=== PATIENT | male | born 1960 | race American Indian/Alaskan Native ===

== ENCOUNTER 2017-08-12 08:11 | Outpatient (CLI) | payer MEDICARE ==
--- NOTE | 2017-08-13 00:55 | Cat Scan Report ---
FINAL REPORT EXAM: CT ABDOMEN PELVIS WO CON HISTORY: MASS RT LOWER QUADRANT TECHNIQUE: Routine axial imaging was obtained of the abdomen and pelvis without IV contrast. Oral contrast was administered. Sagittal and coronal reconstructions were reviewed. Comparison is made to the study of 12/28/2009. FINDINGS: Images through lung bases reveal diffuse interstitial prominence which is nonspecific. Pleural fluid is not seen. The liver, gallbladder, pancreas, and spleen all appear normal. The adrenal glands reveal a stable 19 millimeter low-attenuation nodule in the right adrenal gland most likely representing a benign adenoma. The left adrenal gland appears normal. The kidneys show no evidence of stones or hydronephrosis. The bowel loops are normal in caliber and course. There calcification of the abdominal aorta. There is no evidence of free fluid or adenopathy. The appendix appears normal. In the pelvis the prostate gland is diffusely enlarged indenting the floor of the bladder. It measures 6.7 cm x 5.8 cm. Free fluid is not seen. There are phleboliths along the floor of the pelvis. The skeletal structures reveal facet arthropathy changes of the lower lumbar spine. IMPRESSION: No acute process in the abdomen and pelvis. No evidence of any inflammatory or neoplastic process in the right lower quadrant. Normal appendix. Enlarged prostate gland. Nonspecific diffuse interstitial prominence in both lung bases.
== END 2017-08-12 08:12 | disposition home or self-care (01) ==
LOC: CT 08:11
PROVIDERS: ATTEND General Practice
DX: N40.0 Benign prostatic hyperplasia without lower urinary tract symptoms (principal); I70.0 Atherosclerosis of aorta; I87.8 Other specified disorders of veins; M12.88 Other specific arthropathies, not elsewhere classified, other specified site
CPT/HCPCS: 74176

== ENCOUNTER 2018-05-03 11:15 | Emergency (ER) | payer MEDICARE ==
[2018-05-03 11:45] LABS: Bacteria,Urine 4+ /HPF (Negative); Bilirubin,Urine NEG (Negative); Blood,Urine SM (Negative); Color,Urine Yellow (Yellow); Mucus,Urine FEW /HPF; Protein,Urine <15 mg/dL mg/dL (Negative)
[2018-05-03 13:29] LABS: Basophils # (Auto) 0.1 K/mm3 (0.0-0.1); Basophils % (Auto) 1.1 % (0.0-1.8); Eosinophils # (Auto) 0.2 K/mm3 (0.0-0.4); Eosinophils % (Auto) 2.6 % (0.0-4.3); Hematocrit 40.6 % (35.5-45.6); Hemoglobin 14.2 gm/dl (11.8-15.2); Lymphocytes # (Auto) 2.6 K/mm3 (1.2-5.4); Lymphocytes % (Auto) 32.7 % (13.4-35.0); Mean Corpuscular HGB Conc 35 % (32-34); Mean Corpuscular Hemoglobin 30 pg (28-32); Mean Corpuscular Volume 87 fl (84-94); Monocytes # (Auto) 0.6 K/mm3 (0.0-0.8); Monocytes % (Auto) 7.4 % (0.0-7.3); Platelet Count 190 K/mm3 (140-440); Red Blood Count 4.67 M/mm3 (3.65-5.03); Red Cell Distribution Width 13.8 % (13.2-15.2)
[2018-05-03 13:51] LABS: BUN/Creatinine Ratio 14; Blood Urea Nitrogen 10 mg/dL (9-20); Hemolysis Index 13
--- NOTE | 2018-05-03 14:34 | Cat Scan Report ---
FINAL REPORT EXAM: CT ABDOMEN PELVIS WO CON HISTORY: abd pain r groin TECHNIQUE: CT of the abdomen and pelvis without IV contrast. Coronal and sagittal reconstructed imaging provided. PRIORS: CT abdomen pelvis August 12, 2017. FINDINGS: ABDOMEN: Bilateral adrenal adenomas are unchanged in size and attenuation. Liver, gallbladder, stomach, spleen, and pancreas are unremarkable. Kidneys: Punctate ill-defined densities in both medullary pyramids may represent dense pyramids, tiny stones, or medullary calcinosis. No hydronephrosis. No distinct nephroureteral stone. IVC is unremarkable. Auyp-gj-tzhwbhlu aortic atherosclerotic disease. No aneurysm. No periaortic or retroperitoneal mass or adenopathy. No hematoma. Bilateral psoas muscles appear symmetrical. Mhde-de-dilooadk stool is present throughout the colon. No wall thickening or inflammatory changes. Terminal ileum is unremarkable. Appendix is normal. Small bowel loops are unremarkable. No obstructive pattern. No free air. No free fluid. PELVIS: Large prostate is unchanged compared to the prior. Bladder is unremarkable. No pelvic mass or adenopathy. Inguinal regions are unremarkable. No adenopathy. No mass. No significant hernia. Bones: No suspicious osseous lesions on this limited examination of the skeleton. Metastatic disease better evaluated with bone scan. L3 vertebral hemangioma is unchanged. IMPRESSION: Punctate ill-defined densities in both medullary pyramids may represent dense pyramids, tiny stones, or medullary calcinosis. Right inguinal regions unremarkable. Stable bilateral adrenal adenomas. Stable enlarged prostate.
--- NOTE | 2018-05-03 14:59 | Emergency Department Report ---
ED General Adult HPI - General Chief complaint: Urogenital-Male Stated complaint: UTI PAIN Time Seen by Provider: 05/03/18 13:02 Source: patient Mode of arrival: Ambulatory Limitations: No Limitations - History of Present Illness Initial comments: Patient complains of pain and difficulty in urinating. He says suprapubic pain. He went to his family physician and was referred to [place] [facility] for a possible hernia. He states he was to have a CT scan. Actually he had at least [address] scan in 2017 here before which she neglected to mention. Doesn't really report any acute pain in the normal area. He does complain of discomfort in the right side of his suprapubic region and suprapubic region itself. He has a history of an enlarged prostate. He denies fever or chills. He's had no nausea or vomiting. -: Gradual, week(s) Location: abdomen (suprapubic) Radiation: non-radiation Quality: aching Consistency: intermittent Improves with: none Worsens with: none Associated Symptoms: denies other symptoms Treatments Prior to Arrival: none - Related Data Previous Rx's Medication Instructions Recorded Last Taken Type Aspirin [Aspirin TAB] 325 mg PO QDAY #30 tablet 12/27/13 Unknown Rx Famotidine [Pepcid] 40 mg PO QHS #30 tablet 12/27/13 Unknown Rx Losartan [Cozaar] 50 mg PO QDAY #30 tablet 12/27/13 Unknown Rx Rosuvastatin (Nf) [Crestor] 10 mg PO QHS #30 tablet 12/27/13 Unknown Rx Ciprofloxacin HCl [Cipro] 500 mg PO BID #20 tablet 05/03/18 Unknown Rx Allergies Allergy/AdvReac Type Severity Reaction Status Date / Time No Known Allergies Allergy Unverified 12/26/13 10:47 ED Review of Systems ROS: Stated complaint: UTI PAIN Other details as noted in HPI Constitutional: denies: chills, fever Eyes: denies: eye pain, eye discharge, vision change ENT: denies: ear pain, throat pain Respiratory: denies: cough, shortness of breath, wheezing Cardiovascular: denies: chest pain, palpitations Endocrine: no symptoms reported Gastrointestinal: abdominal pain. denies: nausea, diarrhea Genitourinary: denies: urgency, dysuria Musculoskeletal: denies: back pain, joint swelling, arthralgia Skin: denies: rash, lesions Neurological: denies: headache, weakness, paresthesias Psychiatric: denies: anxiety, depression Hematological/Lymphatic: denies: easy bleeding, easy bruising ED Past Medical Hx - Past Medical History Hx Hypertension: Yes Hx Congestive Heart Failure: No Hx Diabetes: Yes Hx Arthritis: Yes Hx Asthma: No Hx COPD: No Hx HIV: No - Surgical History Additional Surgical History: Right shoulder - Social History Smoking Status: Current Every Day Smoker Substance Use Type: None - Medications Home Medications: Home Medications Medication Instructions Recorded Confirmed Last Taken Type Aspirin [Aspirin TAB] 325 mg PO QDAY #30 tablet 12/27/13 Unknown Rx Famotidine [Pepcid] 40 mg PO QHS #30 tablet 12/27/13 Unknown Rx Losartan [Cozaar] 50 mg PO QDAY #30 tablet 12/27/13 Unknown Rx Rosuvastatin (Nf) [Crestor] 10 mg PO QHS #30 tablet 12/27/13 Unknown Rx Ciprofloxacin HCl [Cipro] 500 mg PO BID #20 tablet 05/03/18 Unknown Rx ED Physical Exam - General Limitations: No Limitations General appearance: alert, in no apparent distress - Head Head exam: Present: atraumatic, normocephalic - Eye Eye exam: Present: normal appearance - ENT ENT exam: Present: mucous membranes moist - Neck Neck exam: Present: normal inspection - Respiratory Respiratory exam: Present: normal lung sounds bilaterally. Absent: respiratory distress - Cardiovascular Cardiovascular Exam: Present: regular rate, normal rhythm. Absent: systolic murmur, diastolic murmur, rubs, gallop - GI/Abdominal GI/Abdominal exam: Present: soft, tenderness (some mild suprapubic discomfort perhaps some fullness but I don't appreciate any mass or hernia.), normal bowel sounds. Absent: distended, guarding, rebound, rigid, organomegaly, mass, bruit , pulsatile mass, hernia - Rectal Rectal exam: Present: deferred - Extremities Exam Extremities exam: Present: normal inspection - Back Exam Back exam: Present: normal inspection - Neurological Exam Neurological exam: Present: alert, oriented X3, CN II-XII intact. Absent: motor sensory deficit - Psychiatric Psychiatric exam: Present: normal affect, normal mood - Skin Skin exam: Present: warm, dry, intact, normal color. Absent: rash ED Course Vital Signs 05/03/18 05/03/18 05/03/18 11:19 12:30 13:00 Temperature 98.1 F Pulse Rate 75 78 71 Respiratory 16 21 18 Rate Blood Pressure 209/97 185/87 184/88 O2 Sat by Pulse 97 96 96 Oximetry - Reevaluation(s) Reevaluation #1: IM ceftriaxone. Patient discharged in good and stable condition. 05/03/18 14:53 05/03/18 15:01 ED Medical Decision Making - Lab Data Result diagrams: 05/03/18 13:06 05/03/18 13:06 Laboratory Results - last 24 hr 05/03/18 05/03/18 05/03/18 11:30 13:06 13:06 WBC 8.0 RBC 4.67 Hgb 14.2 Hct 40.6 MCV 87 MCH 30 MCHC 35 H RDW 13.8 Plt Count 190 Lymph % (Auto) 32.7 [place] % (Auto) 7.4 H Eos % (Auto) 2.6 Baso % (Auto) 1.1 Lymph # 2.6 [place] # 0.6 Eos # 0.2 Baso # 0.1 Seg Neutrophils % 56.2 Seg Neutrophils # 4.5 Sodium 142 Potassium 3.8 Chloride 101.7 Carbon Dioxide 27 Anion Gap 17 BUN 10 Creatinine 0.7 L Estimated GFR > 60 BUN/Creatinine Ratio 14 Glucose 187 H Calcium 9.0 Urine Color Yellow Urine Turbidity Cloudy Urine pH 5.0 Ur Specific [place] 1.009 Urine Protein <15 mg/dl Urine Glucose (UA) >=500 Urine Ketones Neg Urine Blood Sm Urine Nitrite Neg Urine Bilirubin Neg Urine Urobilinogen 4.0 Ur Leukocyte Esterase Lg Urine WBC (Auto) 72.0 H Urine RBC (Auto) 7.0 Urine Bacteria (Auto) 4+ Urine Mucus Few - Radiology Data Radiology results: report reviewed (no hernia or mass noted no acute process per radiologist) Critical care attestation.: If time is entered above; I have spent that time in minutes in the direct care of this critically ill patient, excluding procedure time. ED Disposition Clinical Impression: Poorly-controlled hypertension Type II diabetes mellitus Qualifiers: Diabetes mellitus residential insulin use: without terminal operations manager use Diabetes mellitus complication status: without complication Qualified Code(s): E11.9 - Type 2 diabetes mellitus without complications Acute cystitis Qualifiers: Hematuria presence: without hematuria Qualified Code(s): N30.00 - Acute cystitis without hematuria Disposition: TO HOME OR SELFCARE Is pt being admited?: No Does the pt Need Aspirin: No Condition: Stable Instructions: Diabetes Mellitus Type 2 in Adults (ED), Chronic Hypertension (ED ), Urinary Tract Infection in Men (ED) Additional Instructions: Return any worsening symptoms or if you have fever or chills. Return nausea or vomiting. Return if worsening pain. Follow-up with your primary care physician. If you are not taking metformin and I have written a prescription for urinary diabetes medicine. Your blood pressure medicine may have to be altered. Check your blood pressure and see your primary care physician on Saturday for further follow-up. Be sure to take your blood pressure medicine. Rx for antibiotic. Prescriptions: Ciprofloxacin HCl [Cipro] 500 mg PO BID #20 tablet Referrals: PRIMARY CARE [Primary Care Provider] - 3-5 Days Time of Disposition: 15:01
[2018-05-03] MEDS ORDERED: ROCEPHIN IM ONE (15:02)
[2018-05-03] MEDS ORDERED: XYLOCAINE 1% MPF 5 mL INFILTRATI ONE (15:02)
[2018-05-03 15:42] VITALS: BP 178/96
== END 2018-05-03 15:55 | disposition home or self-care (01) ==
LOC: ED 11:15
DX: I10 Essential (primary) hypertension (principal); E11.9 Type 2 diabetes mellitus without complications; N30.00 Acute cystitis without hematuria; M19.90 Unspecified osteoarthritis, unspecified site; F17.200 Nicotine dependence, unspecified, uncomplicated; Z79.82 Long term (current) use of aspirin
CPT/HCPCS: 36415; 74176; 80048; 81001; 85025; 87086; 96372; 99284; J0696

== ENCOUNTER 2018-06-27 15:35 | Emergency (ER) | payer MEDICARE ==
[2018-06-27 15:41] VITALS: BP 155/113
--- NOTE | 2018-06-27 17:08 | Emergency Department Report ---
ED Male HPI - General Chief complaint: Urogenital-Male Stated complaint: POSS UTI Time Seen by Provider: 06/27/18 16:43 Source: patient Mode of arrival: Ambulatory Limitations: No Limitations - History of Present Illness Initial comments: 58-year-old male presents to ED complaining of suspected UTI. Pt states he was diagnosed with a UTI and treated 2 months ago and feels as if symptoms return. Patient reports dysuria, suprapubic pain, urinary frequency. States pain radiates around to the lower back. Denies nausea, vomiting, fever. MD Complaint: dysuria -: days(s) (5) Location: abdomen (suprapubic) Radiation: other (lower back) Severity: mild Quality: sharp Consistency: constant Improves with: none Worsens with: urination dysuria. denies: blood in urine, fever, nausea/vomiting - Related Data Previous Rx's Medication Instructions Recorded Last Taken Type Aspirin [Aspirin TAB] 325 mg PO QDAY #30 tablet 12/27/13 Unknown Rx Famotidine [Pepcid] 40 mg PO QHS #30 tablet 12/27/13 Unknown Rx Losartan [Cozaar] 50 mg PO QDAY #30 tablet 12/27/13 Unknown Rx Rosuvastatin (Nf) [Crestor] 10 mg PO QHS #30 tablet 12/27/13 Unknown Rx Ciprofloxacin HCl [Cipro] 500 mg PO BID #20 tablet 05/03/18 Unknown Rx metFORMIN [Glucophage] 500 mg PO BID #60 tablet 05/03/18 Unknown Rx Ciprofloxacin HCl [Ciprofloxacin 500 mg PO Q12H #14 tab 06/27/18 Unknown Rx TAB] Naproxen [Naprosyn] 500 mg PO BID #20 tablet 06/27/18 Unknown Rx Phenazopyridine [Pyridium] 200 mg PO TID #6 tab 06/27/18 Unknown Rx Allergies Allergy/AdvReac Type Severity Reaction Status Date / Time No Known Allergies Allergy Unverified 12/26/13 10:47 ED Review of Systems ROS: Stated complaint: POSS UTI Other details as noted in HPI Comment: All other systems reviewed and negative Constitutional: denies: chills, fever Gastrointestinal: abdominal pain. denies: nausea, vomiting Genitourinary: dysuria, frequency. denies: hematuria Musculoskeletal: back pain ED Past Medical Hx - Past Medical History Hx Hypertension: Yes Hx Congestive Heart Failure: No Hx Diabetes: Yes Hx Arthritis: Yes Hx Asthma: No Hx COPD: No Hx HIV: No - Surgical History Past Surgical History?: Yes Additional Surgical History: Right shoulder - Social History Smoking Status: Current Every Day Smoker Substance Use Type: None - Medications Home Medications: Home Medications Medication Instructions Recorded Confirmed Last Taken Type Aspirin [Aspirin TAB] 325 mg PO QDAY #30 tablet 12/27/13 Unknown Rx Famotidine [Pepcid] 40 mg PO QHS #30 tablet 12/27/13 Unknown Rx Losartan [Cozaar] 50 mg PO QDAY #30 tablet 12/27/13 Unknown Rx Rosuvastatin (Nf) [Crestor] 10 mg PO QHS #30 tablet 12/27/13 Unknown Rx Ciprofloxacin HCl [Cipro] 500 mg PO BID #20 tablet 05/03/18 Unknown Rx metFORMIN [Glucophage] 500 mg PO BID #60 tablet 05/03/18 Unknown Rx Ciprofloxacin HCl [Ciprofloxacin 500 mg PO Q12H #14 tab 06/27/18 Unknown Rx TAB] Naproxen [Naprosyn] 500 mg PO BID #20 tablet 06/27/18 Unknown Rx Phenazopyridine [Pyridium] 200 mg PO TID #6 tab 06/27/18 Unknown Rx ED Physical Exam - General Limitations: No Limitations General appearance: alert, in no apparent distress - Head Head exam: Present: atraumatic, normocephalic - Eye Eye exam: Present: normal appearance - ENT ENT exam: Present: mucous membranes moist - Neck Neck exam: Present: normal inspection - Respiratory Respiratory exam: Present: normal lung sounds bilaterally. Absent: respiratory distress - Cardiovascular Cardiovascular Exam: Present: regular rate, normal rhythm - GI/Abdominal GI/Abdominal exam: Present: soft, tenderness (suprapubic) - Extremities Exam Extremities exam: Present: normal inspection - Back Exam Back exam: Absent: CVA tenderness (R), CVA tenderness (L) - Neurological Exam Neurological exam: Present: alert, oriented X3 - Psychiatric Psychiatric exam: Present: normal affect, normal mood - Skin Skin exam: Present: warm, dry, intact, normal color. Absent: rash ED Course Vital Signs 06/27/18 15:39 Temperature 97.5 F L Pulse Rate 73 Respiratory 18 Rate Blood Pressure 155/113 O2 Sat by Pulse 99 Oximetry ED Medical Decision Making - Medical Decision Making 58-year-old male with UTI symptoms 5 days. Mild UTI on UA. Will treat with Cipro. Patient given return precautions. - Differential Diagnosis UTI, prostatitis, pyelonephritis Critical care attestation.: If time is entered above; I have spent that time in minutes in the direct care of this critically ill patient, excluding procedure time. ED Disposition Clinical Impression: UTI (urinary tract infection) Disposition: TO HOME OR SELFCARE Is pt being admited?: No Condition: Stable Instructions: Urinary Tract Infection in Men (ED) Prescriptions: Ciprofloxacin HCl [Ciprofloxacin TAB] 500 mg PO Q12H #14 tab Naproxen [Naprosyn] 500 mg PO BID #20 tablet Phenazopyridine [Pyridium] 200 mg PO TID #6 tab Referrals: PRIMARY CARE, [Primary Care Provider] - 3-5 Days Time of Disposition: 18:25
[2018-06-27 17:21] LABS: Bilirubin,Urine NEG (Negative); Blood,Urine NEG (Negative); Color,Urine Yellow (Yellow); Hyaline Casts,Urine 1 /LPF; Mucus,Urine FEW /HPF; Protein,Urine <15 mg/dL mg/dL (Negative)
== END 2018-06-27 17:28 | disposition home or self-care (01) ==
LOC: ED 15:35
DX: N39.0 Urinary tract infection, site not specified (principal); I10 Essential (primary) hypertension; E11.9 Type 2 diabetes mellitus without complications; M19.90 Unspecified osteoarthritis, unspecified site; F17.200 Nicotine dependence, unspecified, uncomplicated; Z79.82 Long term (current) use of aspirin
CPT/HCPCS: 81001; 99283

== ENCOUNTER 2018-09-30 13:13 | Emergency (ER) | payer MEDICARE ==
[2018-09-30] MEDS ORDERED: CATAPRES PO ONE (13:50)
--- NOTE | 2018-09-30 14:17 | Emergency Department Report ---
HPI - General Chief Complaint: Abdominal Pain Time Seen by Provider: 09/30/18 13:54 - HPI HPI: Room 7 The patient is a 58-year-old male presenting with a chief complaint of dysuria. The patient states for the past 8-9 months he's had pain and swelling in his right groin. Patient states he's had numerous imaging studies which have been negative. The patient states for the past 2-3 days he's had dysuria. Patient denies hematuria or penile discharge. Patient denies fever nausea or vomiting Location: Genitourinary Duration: 2-3 days Quality: Pain Severity: Moderate Modifying factors: [see above] Context: [see above] Mode of transportation: [not driving] ED Past Medical Hx - Past Medical History Previous Medical History?: Yes Hx Hypertension: Yes Hx Diabetes: Yes Hx Arthritis: Yes - Surgical History Past Surgical History?: Yes Additional Surgical History: Right shoulder - Family History Family history: no significant - Social History Smoking Status: Current Every Day Smoker (1/2 pack per day) Substance Use Type: None (denies illicit drug use) - Medications Home Medications: Home Medications Medication Instructions Recorded Confirmed Last Taken Type HYDROcodone/APAP 5-325 [[place] 1 - 2 each PO Q6HR PRN #14 tablet 09/30/18 Unknown Rx 5/325] Ibuprofen [Motrin 800 MG tab] 800 mg PO Q8HR PRN #20 tablet 09/30/18 Unknown Rx Metoprolol Succinate [Toprol Xl] 100 mg PO QDAY 09/30/18 09/30/18 09/29/18 History Sulfamethoxazole/Trimethoprim 1 each PO BID #14 tablet 09/30/18 Unknown Rx [Bactrim DS TAB] Tamsulosin HCl [Flomax] 0.4 mg PO HS 09/30/18 09/30/18 Unknown History glipiZIDE XL [Glucotrol Xl] 10 mg PO QAM 09/30/18 09/30/18 09/29/18 History ED Review of Systems ROS: Stated complaint: UTI Other details as noted in HPI Constitutional: denies: fever Eyes: denies: eye pain ENT: denies: throat pain Respiratory: no symptoms reported Cardiovascular: denies: chest pain Endocrine: no symptoms reported Gastrointestinal: abdominal pain. denies: nausea, vomiting Genitourinary: dysuria. denies: hematuria, discharge Musculoskeletal: denies: back pain Neurological: denies: headache Physical Exam - Physical Exam Vital Signs: Vital Signs 09/30/18 13:31 Temperature 97.9 F Pulse Rate 82 Respiratory 18 Rate Blood Pressure 208/105 O2 Sat by Pulse 99 Oximetry Physical Exam: GENERAL: The patient is well-developed well-nourished male lying on stretcher not appearing to be in acute distress. [] HEENT: Normocephalic. Atraumatic. Extraocular motions are intact. Patient has moist mucous membranes. NECK: Supple. Trachea midline CHEST/LUNGS: Clear to auscultation. There is no respiratory distress noted. HEART/CARDIOVASCULAR: Regular. There is no tachycardia. There is no gallop rub or murmur. ABDOMEN: Abdomen is soft, with tenderness to palpation in the suprapubic and right lower quadrant. Patient has normal bowel sounds. There is no abdominal distention. SKIN: There is no rash. There is no edema. There is no diaphoresis. NEURO: The patient is awake, alert, and oriented. The patient is cooperative. The patient has normal speech MUSCULOSKELETAL: There is no evidence of acute injury. ED Course Vital Signs 09/30/18 13:31 Temperature 97.9 F Pulse Rate 82 Respiratory 18 Rate Blood Pressure 208/105 O2 Sat by Pulse 99 Oximetry ED Medical Decision Making - Lab Data Result diagrams: 09/30/18 14:13 09/30/18 14:13 Laboratory Tests 09/30/18 09/30/18 09/30/18 13:45 14:13 14:13 WBC 8.7 RBC 4.40 Hgb 13.4 Hct 39.3 MCV 89 MCH 30 MCHC 34 RDW 13.3 Plt Count 184 Lymph % (Auto) 32.0 [place] % (Auto) 8.4 H Eos % (Auto) 3.6 Baso % (Auto) 1.0 Lymph # 2.8 [place] # 0.7 Eos # 0.3 Baso # 0.1 Seg Neutrophils % 55.0 Seg Neutrophils # 4.8 Sodium 139 Potassium 3.7 Chloride 103.0 Carbon Dioxide 25 Anion Gap 15 BUN 10 Creatinine 0.7 L Estimated GFR > 60 BUN/Creatinine Ratio 14 Glucose 193 H POC Glucose 195 H Calcium 8.7 Total Bilirubin 0.40 AST 10 ALT 14 Alkaline Phosphatase 29 L Total Protein 6.5 Albumin 4.1 Albumin/Globulin Ratio 1.7 Urine Color Urine Turbidity Urine pH Ur Specific [place] Urine Protein Urine Glucose (UA) Urine Ketones Urine Blood Urine Nitrite Urine Bilirubin Urine Urobilinogen Ur Leukocyte Esterase Urine WBC (Auto) Urine RBC (Auto) U Epithel Cells (Auto) 09/30/18 15:15 WBC RBC Hgb Hct MCV MCH MCHC RDW Plt Count Lymph % (Auto) [place] % (Auto) Eos % (Auto) Baso % (Auto) Lymph # [place] # Eos # Baso # Seg Neutrophils % Seg Neutrophils # Sodium Potassium Chloride Carbon Dioxide Anion Gap BUN Creatinine Estimated GFR BUN/Creatinine Ratio Glucose POC Glucose Calcium Total Bilirubin AST ALT Alkaline Phosphatase Total Protein Albumin Albumin/Globulin Ratio Urine Color Yellow Urine Turbidity Clear Urine pH 6.0 Ur Specific [place] 1.010 Urine Protein <15 mg/dl Urine Glucose (UA) 50 Urine Ketones Neg Urine Blood Neg Urine Nitrite Neg Urine Bilirubin Neg Urine Urobilinogen 2.0 Ur Leukocyte Esterase Mod Urine WBC (Auto) 7.0 H Urine RBC (Auto) 1.0 U Epithel Cells (Auto) < 1.0 - Radiology Data Radiology results: report reviewed (CT abdomen and pelvis), image reviewed (CT abdomen and pelvis) [address] [address] Cat Scan Report Signed Patient: BHANU BRAGA MR#: [id number] : 1960 Acct:[id number] Age/Sex: 58 / M ADM Date: 09/30/18 Loc: ED Attending Dr: Ordering Physician: DANIELA MORLEY MD Date of Service: 09/30/18 Procedure(s): CT abdomen pelvis w con Accession Number(s): [id number] cc: DANIELA MORLEY MD FINAL REPORT EXAM: CT ABDOMEN PELVIS W CON HISTORY: suprapubic, right lower quadrant pain TECHNIQUE: CT of the abdomen and pelvis was performed after the administration of intravenous contrast. Subsequently, CT of the abdomen and pelvis was performed in the delayed phase. Reconstructions were included in the coronal and sagittal planes. PRIORS: 05/03/2018. 12/28/2009. FINDINGS: Lower thorax: The lung bases are clear. The visualized portions of the heart are normal. Liver: The liver is normal in attenuation. No intrahepatic biliary duct d ilation. No focal hepatic lesions. Gallbladder/ biliary system: No cholelithiasis. The common bile duct appears nondilated. Spleen: No splenic lesions are seen. Pancreas: No pancreatic lesions are seen. No pancreatic duct dilation. Kidneys: There is a nonspecific 6 millimeter low-attenuation right renal lesion which is too small to characterize but likely represents a small cyst. Another tiny low-attenuation lesion is seen in the superior pole of the right kidney which is too small to characterize but likely represents a simple cyst. No hydronephrosis. No renal or ureteral calculi. Adrenal glands: Unchanged bilateral adrenal adenomas. Vasculature: There is heterogeneous enhancement of the bilateral external iliac arteries. Atherosclerotic calculi are seen in the abdominal aorta and branch vessels. Lymph nodes: No enlarged lymph nodes are seen in the abdomen or pelvis. Bowel, mesentery, peritoneum: No bowel obstruction. No free fluid or free air. The appendix is normal. No colonic diverticulosis. No bowel wall thickening. Urinary bladder: No filling defects are seen. Pelvis: Unchanged prostatic hypertrophy. Abdominal wall: No abdominal wall hernia or other subcutaneous findings. Bones: Mild degenerative changes are seen in the spine. IMPRESSION: 1. Heterogeneous enhancement of both external iliac arteries may be related to chronic occlusion versus slow flow. Could consider further evaluation with Doppler ultrasound. 2. Unchanged bilateral adrenal adenomas. 3. Unchanged prostatic hypertrophy. 4. Tiny right renal lesions are too small to characterize but likely represent small cysts. Transcribed By: MG Dictated By: YUVAL ENRIQUEZ MD Electronically Authenticated By: YUVAL ENRIQUEZ MD Signed Date/Time: 09/30/181651 DD/ 54 TD/TT: 09/30/181654 - Medical Decision Making CT results discussed with patient - Differential Diagnosis UTI, pyelonephritis Critical care attestation.: If time is entered above; I have spent that time in minutes in the direct care of this critically ill patient, excluding procedure time. ED Disposition Clinical Impression: Abdominal pain, UTI (urinary tract infection), Adrenal adenoma, Enlarged prostate Disposition: - TO HOME OR SELFCARE Is pt being admited?: No Does the pt Need Aspirin: No Condition: Stable Instructions: Acute Abdominal Pain (ED) Additional Instructions: Return to the emergency department immediately should you develop worsening symptoms, fever, inability to tolerate food or liquid or any other concerns. Prescriptions: HYDROcodone/APAP 5-325 [[place] 5/325] 1 - 2 each PO Q6HR PRN #14 tablet PRN Reason: Pain Ibuprofen [Motrin 800 MG tab] 800 mg PO Q8HR PRN #20 tablet PRN Reason: Pain, Moderate (4-6) Sulfamethoxazole/Trimethoprim [Bactrim DS TAB] 1 each PO BID #14 tablet Referrals: MACHO KAY MD [Staff Physician] - 3-5 Days (Dr Kay is a urologist. Please follow up with him for further evaluation of your UTI and enlarged prostate) Time of Disposition: 17:01
[2018-09-30 14:28] LABS: Basophils # (Auto) 0.1 K/mm3 (0.0-0.1); Eosinophils # (Auto) 0.3 K/mm3 (0.0-0.4); Eosinophils % (Auto) 3.6 % (0.0-4.3); Hematocrit 39.3 % (35.5-45.6); Hemoglobin 13.4 gm/dl (11.8-15.2); Lymphocytes # (Auto) 2.8 K/mm3 (1.2-5.4); Mean Corpuscular HGB Conc 34 % (32-34); Mean Corpuscular Volume 89 fl (84-94); Monocytes # (Auto) 0.7 K/mm3 (0.0-0.8); Monocytes % (Auto) 8.4 % (0.0-7.3); Platelet Count 184 K/mm3 (140-440); Red Cell Distribution Width 13.3 % (13.2-15.2)
[2018-09-30 14:43] LABS: Alanine Aminotransferase 14 units/L (7-56); Albumin 4.1 g/dL (3.9-5); BUN/Creatinine Ratio 14; Blood Urea Nitrogen 10 mg/dL (9-20); Calcium 8.7 mg/dL (8.4-10.2); Hemolysis Index 8
[2018-09-30] MEDS ORDERED: TORADOL IV ONE (14:47)
[2018-09-30 15:41] LABS: Bilirubin,Urine NEG (Negative); Blood,Urine NEG (Negative); Color,Urine Yellow (Yellow); Protein,Urine <15 mg/dL mg/dL (Negative)
[2018-09-30] MEDS ORDERED: APRESOLINE IV ONE (16:50)
--- NOTE | 2018-09-30 16:52 | Cat Scan Report ---
FINAL REPORT EXAM: CT ABDOMEN PELVIS W CON HISTORY: suprapubic, right lower quadrant pain TECHNIQUE: CT of the abdomen and pelvis was performed after the administration of intravenous contra st. Subsequently, CT of the abdomen and pelvis was performed in the delayed phase. Reconstructions were included in the coronal and sagittal planes. PRIORS: 05/03/2018. 12/28/2009. FINDINGS: Lower thorax: The lung bases are clear. The visualized portions of the heart are normal. Liver: The liver is normal in attenuation. No intrahepatic biliary duct dilation. No focal hepatic le sions. Gallbladder/ biliary system: No cholelithiasis. The common bile duct appears nondilated. Spleen: No splenic lesions are seen. Pancreas: No pancreatic lesions are seen. No pancreatic duct dilation. Kidneys: There is a nonspecific 6 millimeter low-attenuation right renal lesion which is too small to characterize but likely represents a small cyst. Another tiny low-attenuation lesion is seen in the superior pole of the right kidney which is too small to characterize but likely represents a simple c yst. No hydronephrosis. No renal or ureteral calculi. Adrenal glands: Unchanged bilateral adrenal adenomas. Vasculature: There is heterogeneous enhancement of the bilateral external iliac arteries. Atheroscler otic calculi are seen in the abdominal aorta and branch vessels. Lymph nodes: No enlarged lymph nodes are seen in the abdomen or pelvis. Bowel, mesentery, peritoneum: No bowel obstruction. No free fluid or free air. The appendix is normal . No colonic diverticulosis. No bowel wall thickening. Urinary bladder: No filling defects are seen. Pelvis: Unchanged prostatic hypertrophy. Abdominal wall: No abdominal wall hernia or other subcutaneous findings. Bones: Mild degenerative changes are seen in the spine. IMPRESSION: 1. Heterogeneous enhancement of both external iliac arteries may be related to chronic occlusion vers us slow flow. Could consider further evaluation with Doppler ultrasound. 2. Unchanged bilateral adrenal adenomas. 3. Unchanged prostatic hypertrophy. 4. Tiny right renal lesions are too small to characterize but likely represent small cysts.
[2018-09-30 18:03] VITALS: BP 144/69
== END 2018-09-30 18:04 | disposition home or self-care (01) ==
LOC: ED 13:13
DX: N39.0 Urinary tract infection, site not specified (principal); D35.00 Benign neoplasm of unspecified adrenal gland; N40.0 Benign prostatic hyperplasia without lower urinary tract symptoms; I10 Essential (primary) hypertension; E11.9 Type 2 diabetes mellitus without complications; M19.90 Unspecified osteoarthritis, unspecified site; F17.290 Nicotine dependence, other tobacco product, uncomplicated
CPT/HCPCS: 36415; 74177; 80053; 81001; 82962; 85025; 96374; 96375; 99284; J0360; J1885; Q9967

== ENCOUNTER 2018-10-31 06:06 | Emergency (ER) | payer MEDICARE ==
[2018-10-31 06:38] LABS: Bilirubin,Urine NEG (Negative); Blood,Urine SM (Negative); Color,Urine Yellow (Yellow); Mucus,Urine FEW /HPF; Protein,Urine <15 mg/dL mg/dL (Negative)
[2018-10-31] MEDS ORDERED: PERCOCET 5/325 PO STA (06:39)
[2018-10-31] MEDS ORDERED: LEVAQUIN PO STA (06:39)
--- NOTE | 2018-10-31 06:42 | Emergency Department Report ---
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 Currently on the the care of urology. His been dental with these issues for over 9 months and is due to follow up with urology and on November 06 for a special bladders examination to determine the cause of his issue. Been having some issues with recurrent urinary tract infections since that time and and was seen here in September. He is requesting to have the same treatment provided today that was provided in September. Pending urinalysis We'll give him a Percocet and anabiotic Cipro
--- NOTE | 2018-10-31 07:17 | Emergency Department Report ---
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 Currently on the the care of urology. Pt states that he has been dealing with this issue for over 9 months and is due to follow up with urology and on November 06 for a special bladder examination to determine the cause of his issue. States he has some issues with recurrent urinary tract infections since that time. He denies hematuria, dysuria, penile discharge, testicular swelling, testicular pain - Related Data Home Medications Medication Instructions Recorded Confirmed Last Taken Metoprolol Succinate [Toprol Xl] 100 mg PO QDAY 09/30/18 09/30/18 09/29/18 glipiZIDE XL [Glucotrol Xl] 10 mg PO QAM 09/30/18 09/30/18 09/29/18 Previous Rx's Medication Instructions Recorded Last Taken Type HYDROcodone/APAP 5-325 [[place] 1 - 2 each PO Q6HR PRN #14 tablet 09/30/18 Unknown Rx 5/325] Ibuprofen [Motrin 800 MG tab] 800 mg PO Q8HR PRN #20 tablet 09/30/18 Unknown Rx Sulfamethoxazole/Trimethoprim 1 each PO BID #14 tablet 10/31/18 Unknown Rx [Bactrim DS TAB] Tamsulosin HCl [Flomax] 0.4 mg PO HS #6 capsule 10/31/18 Unknown Rx Allergies Allergy/AdvReac Type Severity Reaction Status Date / Time No Known Allergies Allergy Unverified 12/26/13 10:47 ED Review of Systems ROS: Stated complaint: FREQUENT AND PAINFUL URINATION Other details as noted in HPI Comment: All other systems reviewed and negative ED Past Medical Hx - Past Medical History Previous Medical History?: Yes Hx Hypertension: Yes Hx Congestive Heart Failure: No Hx Diabetes: Yes Hx Arthritis: Yes Hx Asthma: No Hx COPD: No Hx HIV: No - Surgical History Past Surgical History?: Yes Additional Surgical History: Right shoulder - Social History Smoking Status: Current Every Day Smoker Substance Use Type: None - Medications Home Medications: Home Medications Medication Instructions Recorded Confirmed Last Taken Type HYDROcodone/APAP 5-325 [[place] 1 - 2 each PO Q6HR PRN #14 tablet 09/30/18 Unknown Rx 5/325] Ibuprofen [Motrin 800 MG tab] 800 mg PO Q8HR PRN #20 tablet 09/30/18 Unknown Rx Metoprolol Succinate [Toprol Xl] 100 mg PO QDAY 09/30/18 09/30/18 09/29/18 History glipiZIDE XL [Glucotrol Xl] 10 mg PO QAM 09/30/18 09/30/18 09/29/18 History Sulfamethoxazole/Trimethoprim 1 each PO BID #14 tablet 10/31/18 Unknown Rx [Bactrim DS TAB] Tamsulosin HCl [Flomax] 0.4 mg PO HS #6 capsule 10/31/18 Unknown Rx ED Physical Exam - General Limitations: No Limitations General appearance: alert, in no apparent distress - Head Head exam: Present: atraumatic, normocephalic - Eye Eye exam: Present: normal appearance - ENT ENT exam: Present: mucous membranes moist - Neck Neck exam: Present: normal inspection - Respiratory Respiratory exam: Present: normal lung sounds bilaterally. Absent: respiratory distress - Cardiovascular Cardiovascular Exam: Present: regular rate, normal rhythm. Absent: systolic murmur, diastolic murmur, rubs, gallop - GI/Abdominal GI/Abdominal exam: Present: soft, normal bowel sounds. Absent: distended, tenderness, guarding, rebound, mass - Rectal Rectal exam: Present: deferred - Extremities Exam Extremities exam: Present: normal inspection - Back Exam Back exam: Present: normal inspection - Neurological Exam Neurological exam: Present: alert, oriented X3 - Psychiatric Psychiatric exam: Present: normal affect, normal mood - Skin Skin exam: Present: warm, dry, intact, normal color. Absent: rash ED Medical Decision Making - Medical Decision Making 58-year-old male presents with mild cystitis/urethritis Urinalysis positive for moderate leukocyte esterase and white blood count. We'll treat patient empirically with antibiotics. Patient is in no acute distress. He is resting and sleeping comfortable in the ED chair upon my evaluation. Patient has no pelvic or abdominal tenderness. She states she understands instructions Discussed with the patient to follow up and keep his appointment with his urologist. Vital signs are normal patient acute distress. Critical care attestation.: If time is entered above; I have spent that time in minutes in the direct care of this critically ill patient, excluding procedure time. ED Disposition Clinical Impression: UTI (urinary tract infection) Disposition: DC- TO HOME OR SELFCARE Is pt being admited?: No Does the pt Need Aspirin: No Condition: Stable Instructions: Nonspecific Urethritis in Men (ED), Urinary Tract Infection in Men (ED) Additional Instructions: Make sure to follow up with the primary care physician as discussed. Take all your medications as you've been prescribed. If you have any worsening symptoms or develop new symptoms please return to ED immediately. Prescriptions: Sulfamethoxazole/Trimethoprim [Bactrim DS TAB] 1 each PO BID #14 tablet Tamsulosin HCl [Flomax] 0.4 mg PO HS #6 capsule Referrals: SHAYNA ALAN MD [Primary Care Provider] - 3-5 Days Forms: Work/School Release Form(ED) Time of Disposition: 07:23
== END 2018-10-31 07:43 | disposition home or self-care (01) ==
LOC: ED 06:06
DX: N39.0 Urinary tract infection, site not specified (principal); I10 Essential (primary) hypertension; E11.9 Type 2 diabetes mellitus without complications; M19.90 Unspecified osteoarthritis, unspecified site; J45.909 Unspecified asthma, uncomplicated
CPT/HCPCS: 81001

== ENCOUNTER 2018-11-19 23:36 | Emergency (ER) | payer MEDICARE ==
[2018-11-20 00:42] VITALS: BP 160/76
[2018-11-20 01:23] LABS: Bilirubin,Urine NEG (Negative); Blood,Urine NEG (Negative); Color,Urine Yellow (Yellow); Protein,Urine <15 mg/dL mg/dL (Negative)
--- NOTE | 2018-11-20 04:35 | Emergency Department Report ---
ED Male HPI - General Chief complaint: Urogenital-Male Stated complaint: POSS UTI Time Seen by Provider: 11/20/18 04:30 Source: patient Mode of arrival: Ambulatory Limitations: No Limitations - History of Present Illness Initial comments: Mrs. Menendez is a 58-year-old -[place] male with a history of dysuria states he takes hydrocodone when necessary for pain patient denies history of BPH no bladder CA does have diabetes Which is currently controlled with glipizide XL 10 mg by mouth daily patient denies hematuria there is no urinary frequency or urgency noted at this time has been no nausea vomiting or following injury or trauma pain is described as burning tingling urination Complaint: dysuria Onset/Timin -: month(s) Radiation: forehead Severity: moderate Severity scale (0 -10): 3 Quality: burning Consistency: intermittent Improves with: none Worsens with: urination denies: discharge, swelling, mass, rash, urinary retention - Related Data Home Medications Medication Instructions Recorded Confirmed Last Taken Metoprolol Succinate [Toprol Xl] 100 mg PO QDAY 09/30/18 09/30/18 09/29/18 glipiZIDE XL [Glucotrol Xl] 10 mg PO QAM 09/30/18 09/30/18 09/29/18 Previous Rx's Medication Instructions Recorded Last Taken Type HYDROcodone/APAP 5-325 [[place] 1 - 2 each PO Q6HR PRN #14 tablet 09/30/18 Unknown Rx 5/325] Ibuprofen [Motrin 800 MG tab] 800 mg PO Q8HR PRN #20 tablet 09/30/18 Unknown Rx Sulfamethoxazole/Trimethoprim 1 each PO BID #14 tablet 10/31/18 Unknown Rx [Bactrim DS TAB] Tamsulosin HCl [Flomax] 0.4 mg PO HS #6 capsule 10/31/18 Unknown Rx Ibuprofen 800 mg PO TID PRN #30 tablet 11/20/18 Unknown Rx Sulfamethoxazole/Trimethoprim 1 each PO BID 20 Days #20 tablet 11/20/18 Unknown Rx [Bactrim DS TAB] Allergies Allergy/AdvReac Type Severity Reaction Status Date / Time No Known Allergies Allergy Unverified 12/26/13 10:47 ED Review of Systems ROS: Stated complaint: POSS UTI Other details as noted in HPI Constitutional: denies: chills, fever Eyes: denies: eye pain, eye discharge, vision change ENT: denies: ear pain, throat pain Respiratory: denies: cough, shortness of breath, wheezing Cardiovascular: denies: chest pain, palpitations Endocrine: no symptoms reported Gastrointestinal: denies: abdominal pain, nausea, vomiting, diarrhea, constipation, hematemesis, melena, hematochezia Genitourinary: frequency. denies: testicular pain, testicular mass Musculoskeletal: denies: back pain, joint swelling, arthralgia Skin: pruritus. denies: rash, lesions Neurological: denies: headache, weakness, numbness, paresthesias Psychiatric: denies: anxiety, depression Hematological/Lymphatic: denies: easy bleeding, easy bruising ED Past Medical Hx - Past Medical History Previous Medical History?: Yes Hx Hypertension: Yes Hx Congestive Heart Failure: No Hx Diabetes: Yes Hx Arthritis: Yes Hx Asthma: No Hx COPD: No Hx HIV: No - Surgical History Past Surgical History?: Yes Additional Surgical History: Right shoulder - Social History Smoking Status: Current Every Day Smoker Substance Use Type: None - Medications Home Medications: Home Medications Medication Instructions Recorded Confirmed Last Taken Type HYDROcodone/APAP 5-325 [[place] 1 - 2 each PO Q6HR PRN #14 tablet 09/30/18 Unknown Rx 5/325] Ibuprofen [Motrin 800 MG tab] 800 mg PO Q8HR PRN #20 tablet 09/30/18 Unknown Rx Metoprolol Succinate [Toprol Xl] 100 mg PO QDAY 09/30/18 09/30/18 09/29/18 History glipiZIDE XL [Glucotrol Xl] 10 mg PO QAM 09/30/18 09/30/18 09/29/18 History Sulfamethoxazole/Trimethoprim 1 each PO BID #14 tablet 10/31/18 Unknown Rx [Bactrim DS TAB] Tamsulosin HCl [Flomax] 0.4 mg PO HS #6 capsule 10/31/18 Unknown Rx Ibuprofen 800 mg PO TID PRN #30 tablet 11/20/18 Unknown Rx Sulfamethoxazole/Trimethoprim 1 each PO BID 20 Days #20 tablet 11/20/18 Unknown Rx [Bactrim DS TAB] ED Physical Exam - General Limitations: No Limitations General appearance: alert, in no apparent distress - Head Head exam: Present: atraumatic, normocephalic - Eye Eye exam: Present: normal appearance - ENT ENT exam: Present: mucous membranes moist - Neck Neck exam: Present: normal inspection - Respiratory Respiratory exam: Present: normal lung sounds bilaterally. Absent: respiratory distress - Cardiovascular Cardiovascular Exam: Present: regular rate, normal rhythm, normal heart sounds. Absent: systolic murmur, diastolic murmur, rubs, gallop - GI/Abdominal GI/Abdominal exam: Present: soft, normal bowel sounds. Absent: distended, tenderness, guarding, rebound, rigid, mass, bruit, hernia - Rectal Rectal exam: Present: deferred - Extremities Exam Extremities exam: Present: normal inspection, full ROM, tenderness - Back Exam Back exam: Present: normal inspection, full ROM. Absent: tenderness, CVA tenderness (R), CVA tenderness (L), muscle spasm, paraspinal tenderness, vertebral tenderness - Neurological Exam Neurological exam: Present: alert, oriented X3, CN II-XII intact, normal gait, reflexes normal. Absent: motor sensory deficit - Psychiatric Psychiatric exam: Present: normal affect, normal mood - Skin Skin exam: Present: warm, dry, intact, normal color. Absent: rash ED Course Vital Signs 11/20/18 00:39 Temperature 99.1 F Pulse Rate 90 Respiratory 20 Rate Blood Pressure 160/76 O2 Sat by Pulse 98 Oximetry ED Medical Decision Making - Lab Data Laboratory Results - last 72 hr 11/20/18 Unknown Urine Color Yellow Urine Turbidity Clear Urine pH 6.0 Ur Specific [place] 1.009 Urine Protein <15 mg/dl Urine Glucose (UA) Neg Urine Ketones Neg Urine Blood Neg Urine Nitrite Neg Urine Bilirubin Neg Urine Urobilinogen 4.0 Ur Leukocyte Esterase Neg Urine WBC (Auto) 1.0 Urine RBC (Auto) 2.0 - Medical Decision Making ua is normal, exam no cva tenderness no penile discharge no fever on chills no n/v plan: will tx for dyuria bactrim DS, Ibuprofen prn pain pt will continue to follow up with urology, pt given referral to [facility] for pcp affiliation , pt verbalized agreement and understanding of same. Critical care attestation.: If time is entered above; I have spent that time in minutes in the direct care of this critically ill patient, excluding procedure time. ED Disposition Clinical Impression: Dysuria, Flank pain Disposition: TO HOME OR SELFCARE Is pt being admited?: No Does the pt Need Aspirin: No Condition: Stable Instructions: Dysuria (ED) Prescriptions: Ibuprofen 800 mg PO TID PRN #30 tablet PRN Reason: pain Sulfamethoxazole/Trimethoprim [Bactrim DS TAB] 1 each PO BID 20 Days #20 tablet Referrals: SHAYNA ALAN MD [Primary Care Provider] - 3-5 Days
[2018-11-20] MEDS ORDERED: TORADOL IM ONE (04:47)
== END 2018-11-20 04:56 | disposition home or self-care (01) ==
LOC: ED 23:36
DX: R30.0 Dysuria (principal); R10.9 Unspecified abdominal pain; I10 Essential (primary) hypertension; E11.9 Type 2 diabetes mellitus without complications; M19.90 Unspecified osteoarthritis, unspecified site; F17.200 Nicotine dependence, unspecified, uncomplicated
CPT/HCPCS: 81001; 96372; 99282; J1885

== ENCOUNTER 2018-12-28 04:53 | Emergency (ER) | payer MEDICARE ==
[2018-12-28 05:15] VITALS: BP 161/90
[2018-12-28 05:40] LABS: Basophils # (Auto) 0.1 K/mm3 (0.0-0.1); Eosinophils # (Auto) 0.3 K/mm3 (0.0-0.4); Eosinophils % (Auto) 3.4 % (0.0-4.3); Hematocrit 40.2 % (35.5-45.6); Hemoglobin 13.7 gm/dl (11.8-15.2); Lymphocytes # (Auto) 3.1 K/mm3 (1.2-5.4); Lymphocytes % (Auto) 31.5 % (13.4-35.0); Mean Corpuscular HGB Conc 34 % (32-34); Mean Corpuscular Volume 89 fl (84-94); Monocytes # (Auto) 0.8 K/mm3 (0.0-0.8); Platelet Count 197 K/mm3 (140-440); Red Blood Count 4.52 M/mm3 (3.65-5.03); Red Cell Distribution Width 14.1 % (13.2-15.2)
[2018-12-28 05:51] LABS: BUN/Creatinine Ratio 11; Blood Urea Nitrogen 9 mg/dL (9-20); Calcium 9.2 mg/dL (8.4-10.2); Hemolysis Index 13
[2018-12-28 07:14] LABS: Bacteria,Urine 4+ /HPF (Negative); Bilirubin,Urine NEG (Negative); Blood,Urine SM (Negative); Color,Urine Yellow (Yellow); Mucus,Urine FEW /HPF; Protein,Urine <15 mg/dL mg/dL (Negative)
[2018-12-28] MEDS ORDERED: PERCOCET 5/325 PO ONE (08:16)
[2018-12-28] MEDS ORDERED: BACTRIM DS PO ONE (08:16)
[2018-12-28] MEDS ORDERED: PYRIDIUM PO ONE (08:16)
--- NOTE | 2018-12-28 08:16 | Emergency Department Report ---
ED General Adult HPI - General Chief complaint: Urogenital-Male Stated complaint: UTI/BUTTOCKS/ABD/R LEG/R FOOT PAIN Time Seen by Provider: 12/28/18 08:10 Source: patient Mode of arrival: Ambulatory Limitations: No Limitations - History of Present Illness Initial comments: Patient is a 58-year-old male past medical history of BPH who presents with dysuria and right groin strain that has been going on for the last couple of weeks. He states that it hurts some to urinate and he's been having burning for the last week. Denies having any penile discharge patient is sexually active. Patient denies having any nausea or vomiting. The pain is a 9 out of 10 urinate makes it worse and nothing makes it better. Severity scale (0 -10): 10 - Related Data Home Medications Medication Instructions Recorded Confirmed Last Taken Metoprolol Succinate [Toprol Xl] 100 mg PO QDAY 09/30/18 09/30/18 09/29/18 glipiZIDE XL [Glucotrol Xl] 10 mg PO QAM 09/30/18 09/30/18 09/29/18 Previous Rx's Medication Instructions Recorded Last Taken Type HYDROcodone/APAP 5-325 [[place] 1 - 2 each PO Q6HR PRN #14 tablet 09/30/18 Unknown Rx 5/325] Ibuprofen [Motrin 800 MG tab] 800 mg PO Q8HR PRN #20 tablet 09/30/18 Unknown Rx Sulfamethoxazole/Trimethoprim 1 each PO BID #14 tablet 10/31/18 Unknown Rx [Bactrim DS TAB] Tamsulosin HCl [Flomax] 0.4 mg PO HS #6 capsule 10/31/18 Unknown Rx Ibuprofen 800 mg PO TID PRN #30 tablet 11/20/18 Unknown Rx Sulfamethoxazole/Trimethoprim 1 each PO BID 20 Days #20 tablet 12/28/18 Unknown Rx [Bactrim DS TAB] traMADol [Ultram 50 MG tab] 50 mg PO Q6HR PRN #11 tablet 12/28/18 Unknown Rx Allergies Allergy/AdvReac Type Severity Reaction Status Date / Time No Known Allergies Allergy Unverified 12/26/13 10:47 ED Review of Systems ROS: Stated complaint: UTI/BUTTOCKS/ABD/R LEG/R FOOT PAIN Other details as noted in HPI Constitutional: denies: chills, fever Eyes: denies: eye pain, eye discharge, vision change ENT: denies: ear pain, throat pain Respiratory: denies: cough, shortness of breath, wheezing Cardiovascular: denies: chest pain, palpitations Endocrine: no symptoms reported Gastrointestinal: denies: abdominal pain, nausea, diarrhea Genitourinary: urgency, dysuria Musculoskeletal: denies: back pain, joint swelling, arthralgia Skin: denies: rash, lesions Neurological: denies: headache, weakness, paresthesias Psychiatric: denies: anxiety, depression Hematological/Lymphatic: denies: easy bleeding, easy bruising ED Past Medical Hx - Past Medical History Previous Medical History?: Yes Hx Hypertension: Yes Hx Congestive Heart Failure: No Hx Diabetes: Yes Hx Arthritis: Yes Hx Asthma: No Hx COPD: No Hx HIV: No Additional medical history: Neuropathy, Chronic Pain - Surgical History Past Surgical History?: Yes Additional Surgical History: Right shoulder - Social History Smoking Status: Current Every Day Smoker Substance Use Type: None - Medications Home Medications: Home Medications Medication Instructions Recorded Confirmed Last Taken Type HYDROcodone/APAP 5-325 [[place] 1 - 2 each PO Q6HR PRN #14 tablet 09/30/18 Unknown Rx 5/325] Ibuprofen [Motrin 800 MG tab] 800 mg PO Q8HR PRN #20 tablet 09/30/18 Unknown Rx Metoprolol Succinate [Toprol Xl] 100 mg PO QDAY 09/30/18 09/30/18 09/29/18 History glipiZIDE XL [Glucotrol Xl] 10 mg PO QAM 09/30/18 09/30/18 09/29/18 History Sulfamethoxazole/Trimethoprim 1 each PO BID #14 tablet 10/31/18 Unknown Rx [Bactrim DS TAB] Tamsulosin HCl [Flomax] 0.4 mg PO HS #6 capsule 10/31/18 Unknown Rx Ibuprofen 800 mg PO TID PRN #30 tablet 11/20/18 Unknown Rx Sulfamethoxazole/Trimethoprim 1 each PO BID 20 Days #20 tablet 12/28/18 Unknown Rx [Bactrim DS TAB] traMADol [Ultram 50 MG tab] 50 mg PO Q6HR PRN #11 tablet 12/28/18 Unknown Rx ED Physical Exam - General Limitations: No Limitations General appearance: alert, in no apparent distress - Head Head exam: Present: atraumatic, normocephalic - Eye Eye exam: Present: normal appearance - ENT ENT exam: Present: mucous membranes moist - Neck Neck exam: Present: normal inspection - Respiratory Respiratory exam: Present: normal lung sounds bilaterally. Absent: respiratory distress - Cardiovascular Cardiovascular Exam: Present: regular rate, normal rhythm. Absent: systolic murmur, diastolic murmur, rubs, gallop - GI/Abdominal GI/Abdominal exam: Present: soft, normal bowel sounds - Rectal Rectal exam: Present: deferred - exam: Present: normal inspection - Extremities Exam Extremities exam: Present: normal inspection - Back Exam Back exam: Present: normal inspection - Neurological Exam Neurological exam: Present: alert, oriented X3 - Psychiatric Psychiatric exam: Present: normal affect, normal mood - Skin Skin exam: Present: warm, dry, intact, normal color. Absent: rash ED Course Vital Signs 12/28/18 05:00 Temperature 97.8 F Pulse Rate 87 Respiratory 18 Rate Blood Pressure 161/90 O2 Sat by Pulse 98 Oximetry ED Medical Decision Making - Lab Data Result diagrams: 12/28/18 05:19 12/28/18 05:19 Lab Results 12/28/18 12/28/18 12/28/18 Range/Units 05:10 05:19 05:19 WBC 9.9 (4.5-11.0) K/mm3 RBC 4.52 (3.65-5.03) M/mm3 Hgb 13.7 (11.8-15.2) gm/dl Hct 40.2 (35.5-45.6) % MCV 89 (84-94) fl MCH 30 (28-32) pg MCHC 34 (32-34) % RDW 14.1 (13.2-15.2) % Plt Count 197 (140-440) K/mm3 Lymph % (Auto) 31.5 (13.4-35.0) % [place] % (Auto) 8.0 H (0.0-7.3) % Eos % (Auto) 3.4 (0.0-4.3) % Baso % (Auto) 1.0 (0.0-1.8) % Lymph # 3.1 (1.2-5.4) K/mm3 [place] # 0.8 (0.0-0.8) K/mm3 Eos # 0.3 (0.0-0.4) K/mm3 Baso # 0.1 (0.0-0.1) K/mm3 Seg Neutrophils % 56.1 (40.0-70.0) % Seg Neutrophils # 5.6 (1.8-7.7) K/mm3 Sodium 139 (137-145) mmol/L Potassium 3.8 (3.6-5.0) mmol/L Chloride 101.5 (98-107) mmol/L Carbon Dioxide 25 (22-30) mmol/L Anion Gap 16 mmol/L BUN 9 (9-20) mg/dL Creatinine 0.8 (0.8-1.5) mg/dL Estimated GFR > 60 ml/min BUN/Creatinine Ratio 11 % Glucose 138 H (75-100) mg/dL POC Glucose 120 H (70-105) Calcium 9.2 (8.4-10.2) mg/dL Urine Color (Yellow) Urine Turbidity (Clear) Urine pH (5.0-7.0) Ur Specific [place] (1.003-1.030) Urine Protein (Negative) mg/dL Urine Glucose (UA) (Negative) mg/dL Urine Ketones (Negative) mg/dL Urine Blood (Negative) Urine Nitrite (Negative) Urine Bilirubin (Negative) Urine Urobilinogen (<2.0) mg/dL Ur Leukocyte Esterase (Negative) Urine WBC (Auto) (0.0-6.0) /HPF Urine RBC (Auto) (0.0-6.0) /HPF Urine Bacteria (Auto) (Negative) /HPF Urine Mucus /HPF Urine Yeast ([place]) /HPF 12/28/18 Range/Units Unknown WBC (4.5-11.0) K/mm3 RBC (3.65-5.03) M/mm3 Hgb (11.8-15.2) gm/dl Hct (35.5-45.6) % MCV (84-94) fl MCH (28-32) pg MCHC (32-34) % RDW (13.2-15.2) % Plt Count (140-440) K/mm3 Lymph % (Auto) (13.4-35.0) % [place] % (Auto) (0.0-7.3) % Eos % (Auto) (0.0-4.3) % Baso % (Auto) (0.0-1.8) % Lymph # (1.2-5.4) K/mm3 [place] # (0.0-0.8) K/mm3 Eos # (0.0-0.4) K/mm3 Baso # (0.0-0.1) K/mm3 Seg Neutrophils % (40.0-70.0) % Seg Neutrophils # (1.8-7.7) K/mm3 Sodium (137-145) mmol/L Potassium (3.6-5.0) mmol/L Chloride (98-107) mmol/L Carbon Dioxide (22-30) mmol/L Anion Gap mmol/L BUN (9-20) mg/dL Creatinine (0.8-1.5) mg/dL Estimated GFR ml/min BUN/Creatinine Ratio % Glucose (75-100) mg/dL POC Glucose (70-105) Calcium (8.4-10.2) mg/dL Urine Color Yellow (Yellow) Urine Turbidity Slightly-cloudy (Clear) Urine pH 5.0 (5.0-7.0) Ur Specific [place] 1.009 (1.003-1.030) Urine Protein <15 mg/dl (Negative) mg/dL Urine Glucose (UA) Neg (Negative) mg/dL Urine Ketones Neg (Negative) mg/dL Urine Blood Sm (Negative) Urine Nitrite Pos (Negative) Urine Bilirubin Neg (Negative) Urine Urobilinogen 2.0 (<2.0) mg/dL Ur Leukocyte Esterase Lg (Negative) Urine WBC (Auto) 168.0 H (0.0-6.0) /HPF Urine RBC (Auto) 7.0 (0.0-6.0) /HPF Urine Bacteria (Auto) 4+ (Negative) /HPF Urine Mucus Few /HPF Urine Yeast ([place]) Few /HPF - Medical Decision Making Cdx: UTI ddx: BPH, Cystitis I will give patient oral pain medication and will send patient home with antibiotic. Additional verbal discharge instructions were given patient agrees with plan. Critical care attestation.: If time is entered above; I have spent that time in minutes in the direct care of this critically ill patient, excluding procedure time. ED Disposition Clinical Impression: Right groin pain UTI (urinary tract infection) Qualifiers: Urinary tract infection type: acute cystitis Hematuria presence: without hematuria Qualified Code(s): N30.00 - Acute cystitis without hematuria Disposition: DC-01 TO HOME OR SELFCARE Is pt being admited?: No Does the pt Need Aspirin: No Condition: Stable Instructions: Urinary Tract Infection in Men (ED), Dysuria (ED) Prescriptions: Sulfamethoxazole/Trimethoprim [Bactrim DS TAB] 1 each PO BID 20 Days #20 tablet traMADol [Ultram 50 MG tab] 50 mg PO Q6HR PRN #11 tablet PRN Reason: Pain Referrals: SHAYNA ALAN MD [Primary Care Provider] - 3-5 Days
== END 2018-12-28 09:05 | disposition home or self-care (01) ==
LOC: ED 04:53
DX: N30.00 Acute cystitis without hematuria (principal); I10 Essential (primary) hypertension; M19.90 Unspecified osteoarthritis, unspecified site; E11.40 Type 2 diabetes mellitus with diabetic neuropathy, unspecified; F17.200 Nicotine dependence, unspecified, uncomplicated
CPT/HCPCS: 36415; 80048; 81001; 82962; 85025; 99283

== ENCOUNTER 2019-09-08 06:10 | Emergency (ER) | payer MEDICARE ==
[2019-09-08 08:02] LABS: Alanine Aminotransferase 14 units/L (7-56); Albumin 3.9 g/dL (3.9-5); BUN/Creatinine Ratio 10; Blood Urea Nitrogen 8 mg/dL (9-20); Calcium 8.7 mg/dL (8.4-10.2)
[2019-09-08 08:03] LABS: Hemolysis Index 17
--- NOTE | 2019-09-08 08:32 | Emergency Department Report ---
ED General Adult HPI - General Chief complaint: Abdominal Pain Stated complaint: BLOOD IN URINE Time Seen by Provider: 09/08/19 08:09 Source: patient Mode of arrival: Ambulatory Limitations: No Limitations - History of Present Illness Initial comments: Patient is a 59-year-old -[place] male with a past medical history of BPH and recurrent UTIs who is complaining of 2-3 days of suprapubic and right flank pain. Patient has dysuria and has hematuria as well last night. Patient denies nausea vomiting fevers or chills. Patient states he was last on Bactrim and states that was the Bactrim ran out his symptoms started coming back. Severity scale (0 -10): 5 Quality: burning, aching Consistency: constant Associated Symptoms: denies: confusion, chest pain, cough, diaphoresis, fever/chills, headaches, loss of appetite, malaise, nausea/vomiting, rash - Related Data Home Medications Medication Instructions Recorded Confirmed Last Taken Metoprolol Succinate [Toprol Xl] 100 mg PO QDAY 09/30/18 09/30/18 09/29/18 glipiZIDE XL [Glucotrol Xl] 10 mg PO QAM 09/30/18 09/30/18 09/29/18 Previous Rx's Medication Instructions Recorded Last Taken Type HYDROcodone/APAP 5-325 [[place] 1 - 2 each PO Q6HR PRN #14 tablet 09/30/18 Unknown Rx 5/325] Ibuprofen [Motrin 800 MG tab] 800 mg PO Q8HR PRN #20 tablet 09/30/18 Unknown Rx Sulfamethoxazole/Trimethoprim 1 each PO BID #14 tablet 10/31/18 Unknown Rx [Bactrim DS TAB] Tamsulosin HCl [Flomax] 0.4 mg PO HS #6 capsule 10/31/18 Unknown Rx Ibuprofen [Ibuprofen 800] 800 mg PO TID PRN #30 tablet 11/20/18 Unknown Rx Sulfamethoxazole/Trimethoprim 1 each PO BID 20 Days #20 tablet 12/28/18 Unknown Rx [Bactrim DS TAB] traMADoL [Ultram 50 MG tab] 50 mg PO Q6HR PRN #11 tablet 12/28/18 Unknown Rx Phenazopyridine [Pyridium] 200 mg PO BID #6 tab 09/08/19 Unknown Rx Tamsulosin [Flomax] 0.4 mg PO QDAY #10 cap 09/08/19 Unknown Rx levoFLOXacin [Levaquin TAB] 500 mg PO QDAY #10 tablet 09/08/19 Unknown Rx traMADoL [Ultram] 50 mg PO Q6HR PRN #12 tablet 09/08/19 Unknown Rx Allergies Allergy/AdvReac Type Severity Reaction Status Date / Time No Known Allergies Allergy Unverified 12/26/13 10:47 ED Review of Systems ROS: Stated complaint: BLOOD IN URINE Other details as noted in HPI Comment: All other systems reviewed and negative ED Past Medical Hx - Past Medical History Hx Hypertension: Yes Hx Congestive Heart Failure: No Hx Diabetes: Yes Hx Arthritis: Yes Hx Asthma: No Hx COPD: No Hx HIV: No Additional medical history: Neuropathy, Chronic Pain - Surgical History Additional Surgical History: Right shoulder - Social History Smoking Status: Current Every Day Smoker Substance Use Type: None - Medications Home Medications: Home Medications Medication Instructions Recorded Confirmed Last Taken Type HYDROcodone/APAP 5-325 [[place] 1 - 2 each PO Q6HR PRN #14 tablet 09/30/18 Unknown Rx 5/325] Ibuprofen [Motrin 800 MG tab] 800 mg PO Q8HR PRN #20 tablet 09/30/18 Unknown Rx Metoprolol Succinate [Toprol Xl] 100 mg PO QDAY 09/30/18 09/30/18 09/29/18 History glipiZIDE XL [Glucotrol Xl] 10 mg PO QAM 09/30/18 09/30/18 09/29/18 History Sulfamethoxazole/Trimethoprim 1 each PO BID #14 tablet 10/31/18 Unknown Rx [Bactrim DS TAB] Tamsulosin HCl [Flomax] 0.4 mg PO HS #6 capsule 10/31/18 Unknown Rx Ibuprofen [Ibuprofen 800] 800 mg PO TID PRN #30 tablet 11/20/18 Unknown Rx Sulfamethoxazole/Trimethoprim 1 each PO BID 20 Days #20 tablet 12/28/18 Unknown Rx [Bactrim DS TAB] traMADoL [Ultram 50 MG tab] 50 mg PO Q6HR PRN #11 tablet 12/28/18 Unknown Rx Phenazopyridine [Pyridium] 200 mg PO BID #6 tab 09/08/19 Unknown Rx Tamsulosin [Flomax] 0.4 mg PO QDAY #10 cap 09/08/19 Unknown Rx levoFLOXacin [Levaquin TAB] 500 mg PO QDAY #10 tablet 09/08/19 Unknown Rx traMADoL [Ultram] 50 mg PO Q6HR PRN #12 tablet 09/08/19 Unknown Rx ED Physical Exam - General Limitations: No Limitations General appearance: alert, in no apparent distress - Head Head exam: Present: atraumatic, normocephalic - Eye Eye exam: Present: normal appearance - ENT ENT exam: Present: mucous membranes moist - Neck Neck exam: Present: normal inspection - Respiratory Respiratory exam: Present: normal lung sounds bilaterally. Absent: respiratory distress, wheezes, rales, rhonchi - Cardiovascular Cardiovascular Exam: Present: regular rate, normal rhythm. Absent: systolic murmur, diastolic murmur, rubs, gallop - GI/Abdominal GI/Abdominal exam: Present: soft, normal bowel sounds - Rectal Rectal exam: Present: deferred - Extremities Exam Extremities exam: Present: normal inspection - Back Exam Back exam: Present: normal inspection - Neurological Exam Neurological exam: Present: alert, oriented X3 - Psychiatric Psychiatric exam: Present: normal affect, normal mood - Skin Skin exam: Present: warm, dry, intact, normal color. Absent: rash ED Medical Decision Making - Lab Data Result diagrams: 09/08/19 06:22 09/08/19 06:22 Lab Results 09/08/19 09/08/19 09/08/19 Range/Units 06:22 06:22 07:22 WBC 8.0 (4.5-11.0) K/mm3 RBC 4.56 (3.65-5.03) M/mm3 Hgb 13.7 (11.8-15.2) gm/dl Hct 41.1 (35.5-45.6) % MCV 90 (84-94) fl MCH 30 (28-32) pg MCHC 33 (32-34) % RDW 13.8 (13.2-15.2) % Plt Count 198 (140-440) K/mm3 Lymph % (Auto) 32.0 (13.4-35.0) % [place] % (Auto) 8.7 H (0.0-7.3) % Eos % (Auto) 3.2 (0.0-4.3) % Baso % (Auto) 1.1 (0.0-1.8) % Lymph # 2.5 (1.2-5.4) K/mm3 [place] # 0.7 (0.0-0.8) K/mm3 Eos # 0.3 (0.0-0.4) K/mm3 Baso # 0.1 (0.0-0.1) K/mm3 Seg Neutrophils % 55.0 (40.0-70.0) % Seg Neutrophils # 4.4 (1.8-7.7) K/mm3 Sodium 134 L (137-145) mmol/L Potassium 3.8 (3.6-5.0) mmol/L Chloride 97.7 L (98-107) mmol/L Carbon Dioxide 21 L (22-30) mmol/L Anion Gap 19 mmol/L BUN 8 L (9-20) mg/dL Creatinine 0.8 (0.8-1.5) mg/dL Estimated GFR > 60 ml/min BUN/Creatinine Ratio 10 % Glucose 253 H (75-100) mg/dL Calcium 8.7 (8.4-10.2) mg/dL Total Bilirubin 0.40 (0.1-1.2) mg/dL AST 11 (5-40) units/L ALT 14 (7-56) units/L Alkaline Phosphatase 30 L (35-129) units/L Total Protein 7.1 (6.3-8.2) g/dL Albumin 3.9 (3.9-5) g/dL Albumin/Globulin Ratio 1.2 % Urine Color Yellow (Yellow) Urine Turbidity Slightly cloudy (Clear) Urine pH 5.0 (5.0-7.0) Ur Specific [place] 1.021 (1.003-1.030) Urine Protein <15 mg/dl (Negative) mg/dL Urine Glucose (UA) >500 (Negative) mg/dL Urine Ketones Negative (Negative) mg/dL Urine Blood Sm (Negative) Urine Nitrite Negative (Negative) Urine Bilirubin Negative (Negative) Urine Urobilinogen 4.0 (<2.0) mg/dL Ur Leukocyte Esterase Lg (Negative) Urine WBC (Auto) 102.0 H (0.0-6.0) /HPF Urine RBC (Auto) 16.0 (0.0-6.0) /HPF U Epithel Cells (Auto) < 1.0 (0-13.0) /HPF Urine Bacteria (Auto) 1+ (Negative) /HPF Urine Mucus 2+ /HPF - Medical Decision Making Patient is 5-year-old -[place] male presenting with suprapubic and right flank discomfort as well as dysuria. Urinalysis does show a significant urinary tract infection. Patient states he just finished a prescription of Bactrim which he states he does not feel as though work. Patient saw his uro logist approximately one month ago. Patient will be started on Levaquin which he states he has had good results with him in the past. Patient also given a prescription for Flomax and close measures for symptomatic relief. Critical care attestation.: If time is entered above; I have spent that time in minutes in the direct care of this critically ill patient, excluding procedure time. ED Disposition Clinical Impression: Type II diabetes mellitus Acute cystitis Qualifiers: Hematuria presence: with hematuria Qualified Code(s): N30.01 - Acute cystitis with hematuria Disposition: TO HOME OR SELFCARE Is pt being admited?: No Does the pt Need Aspirin: No Condition: Stable Instructions: Urinary Tract Infection in Men (ED) Additional Instructions: Please follow up with your urologist as soon as possible Time of Disposition: 09:42
[2019-09-08 08:48] LABS: Bilirubin,Urine Negative (Negative); Blood,Urine SM (Negative); Color,Urine Yellow (Yellow); Protein,Urine <15 mg/dL mg/dL (Negative)
[2019-09-08 08:49] LABS: Bacteria,Urine 1+ /HPF (Negative); Mucus,Urine 2+ /HPF
[2019-09-08 09:32] LABS: Basophils % (Auto) 1.1 % (0.0-1.8); Eosinophils % (Auto) 3.2 % (0.0-4.3); Hematocrit 41.1 % (35.5-45.6); Hemoglobin 13.7 gm/dl (11.8-15.2); Mean Corpuscular HGB Conc 33 % (32-34); Mean Corpuscular Volume 90 fl (84-94); Monocytes % (Auto) 8.7 % (0.0-7.3); Platelet Count 198 K/mm3 (140-440); Red Blood Count 4.56 M/mm3 (3.65-5.03); Red Cell Distribution Width 13.8 % (13.2-15.2)
[2019-09-08 09:33] LABS: Basophils # (Auto) 0.1 K/mm3 (0.0-0.1); Eosinophils # (Auto) 0.3 K/mm3 (0.0-0.4); Lymphocytes # (Auto) 2.5 K/mm3 (1.2-5.4); Monocytes # (Auto) 0.7 K/mm3 (0.0-0.8)
== END 2019-09-08 09:52 | disposition home or self-care (01) ==
LOC: ED 06:10
DX: N30.00 Acute cystitis without hematuria (principal); E11.9 Type 2 diabetes mellitus without complications; I10 Essential (primary) hypertension; M19.90 Unspecified osteoarthritis, unspecified site; F17.200 Nicotine dependence, unspecified, uncomplicated; Z98.890 Other specified postprocedural states; Z79.1 Long term (current) use of non-steroidal anti-inflammatories (NSAID); Z79.899 Other long term (current) drug therapy
CPT/HCPCS: 36415; 80053; 81001; 85025; 99283

== ENCOUNTER 2019-09-26 04:47 | Emergency (ER) | payer MEDICARE ==
[2019-09-26 05:49] LABS: Basophils # (Auto) 0.1 K/mm3 (0.0-0.1); Basophils % (Auto) 0.8 % (0.0-1.8); Eosinophils # (Auto) 0.2 K/mm3 (0.0-0.4); Eosinophils % (Auto) 2.5 % (0.0-4.3); Hematocrit 39.2 % (35.5-45.6); Hemoglobin 13.4 gm/dl (11.8-15.2); Lymphocytes # (Auto) 3.1 K/mm3 (1.2-5.4); Mean Corpuscular HGB Conc 34 % (32-34); Mean Corpuscular Volume 88 fl (84-94); Monocytes # (Auto) 0.8 K/mm3 (0.0-0.8); Monocytes % (Auto) 8.4 % (0.0-7.3); Platelet Count 226 K/mm3 (140-440); Red Blood Count 4.43 M/mm3 (3.65-5.03); Red Cell Distribution Width 13.8 % (13.2-15.2)
[2019-09-26 06:02] LABS: Alanine Aminotransferase 15 units/L (7-56); Albumin 4.1 g/dL (3.9-5); BUN/Creatinine Ratio 14; Blood Urea Nitrogen 11 mg/dL (9-20); Calcium 8.8 mg/dL (8.4-10.2); Hemolysis Index 88
[2019-09-26 06:06] LABS: Bilirubin,Urine NEG (Negative); Blood,Urine NEG (Negative); Color,Urine Amber (Yellow); Mucus,Urine FEW /HPF; Protein,Urine <15 mg/dL mg/dL (Negative)
--- NOTE | 2019-09-26 08:43 | Emergency Department Report ---
ED General Adult HPI - General Chief complaint: Abdominal Pain Stated complaint: BLOOD IN URINE, LOWER BACK, ABD PAIN Time Seen by Provider: 09/26/19 08:05 Source: patient Mode of arrival: Ambulatory Limitations: No Limitations - History of Present Illness Initial comments: This is a 59-year-old male with a history of diabetes, neuropathy, chronic pain who presents to the emergency department frequently with UTI symptoms and abdominal pain. He has had 3 CT scans in the past 2016, 18 and 19. None of which showed an explanation of his abdominal pain although chronic findings were present. He was treated with Levaquin for a UTI just recently. He states that the symptoms did improve. However his chief complaint appears now to be what he thought was blood in his urine. He does complain of various foci of pain. He states that his principal pain complaint is pain in his right SI joint or buttox. He also complains of pain in various quadrants of his abdomen and right groin. He denies nausea vomiting diarrhea or problems with his bowel movements fever or chills. He is requesting a referral to Dr. Ewing the urologist. He tells me he has run out of his chronic pain medication. -: Gradual, days(s) Location: right (groin and SI joint) Radiation: non-radiation Quality: aching Consistency: intermittent, now resolved Improves with: none Worsens with: none Associated Symptoms: denies other symptoms - Related Data Home Medications Medication Instructions Recorded Confirmed Last Taken Metoprolol Succinate [Toprol Xl] 100 mg PO QDAY 09/30/18 09/30/18 09/29/18 glipiZIDE XL [Glucotrol Xl] 10 mg PO QAM 09/30/18 09/30/18 09/29/18 Previous Rx's Medication Instructions Recorded Last Taken Type HYDROcodone/APAP 5-325 [[place] 1 - 2 each PO Q6HR PRN #14 tablet 09/30/18 Unknown Rx 5/325] Ibuprofen [Motrin 800 MG tab] 800 mg PO Q8HR PRN #20 tablet 09/30/18 Unknown Rx Sulfamethoxazole/Trimethoprim 1 each PO BID #14 tablet 10/31/18 Unknown Rx [Bactrim DS TAB] Tamsulosin HCl [Flomax] 0.4 mg PO HS #6 capsule 10/31/18 Unknown Rx Ibuprofen [Ibuprofen 800] 800 mg PO TID PRN #30 tablet 11/20/18 Unknown Rx Sulfamethoxazole/Trimethoprim 1 each PO BID 20 Days #20 tablet 12/28/18 Unknown Rx [Bactrim DS TAB] traMADoL [Ultram 50 MG tab] 50 mg PO Q6HR PRN #11 tablet 12/28/18 Unknown Rx Phenazopyridine [Pyridium] 200 mg PO BID #6 tab 09/08/19 Unknown Rx Tamsulosin [Flomax] 0.4 mg PO QDAY #10 cap 09/08/19 Unknown Rx levoFLOXacin [Levaquin TAB] 500 mg PO QDAY #10 tablet 09/08/19 Unknown Rx traMADoL [Ultram] 50 mg PO Q6HR PRN #12 tablet 09/08/19 Unknown Rx Losartan [Cozaar] 50 mg PO QDAY #30 tablet 09/26/19 Unknown Rx Nitrofurantoin [place]/M-Cryst 100 mg PO Q12HR #20 capsule 09/26/19 Unknown Rx [Macrobid CAP] traMADoL [Ultram 50 MG tab] 50 mg PO Q6HR PRN #10 tablet 09/26/19 Unknown Rx Allergies Allergy/AdvReac Type Severity Reaction Status Date / Time No Known Allergies Allergy Unverified 12/26/13 10:47 ED Review of Systems ROS: Stated complaint: BLOOD IN URINE, LOWER BACK, ABD PAIN Other details as noted in HPI Constitutional: denies: chills, fever Eyes: denies: eye pain, eye discharge, vision change ENT: denies: ear pain, throat pain Respiratory: denies: cough, shortness of breath, wheezing Cardiovascular: denies: chest pain, palpitations Endocrine: no symptoms reported Gastrointestinal: abdominal pain (as above described). denies: nausea, diarrhea Genitourinary: dysuria. denies: urgency Musculoskeletal: back pain (as above described). denies: joint swelling, arthralgia Skin: denies: rash, lesions Neurological: denies: headache, weakness, paresthesias Psychiatric: denies: anxiety, depression Hematological/Lymphatic: denies: easy bleeding, easy bruising ED Past Medical Hx - Past Medical History Previous Medical History?: Yes Hx Hypertension: Yes Hx Congestive Heart Failure: No Hx Diabetes: Yes Hx Arthritis: Yes Hx Asthma: No Hx COPD: No Hx HIV: No Additional medical history: Neuropathy, Chronic Pain - Surgical History Past Surgical History?: Yes Additional Surgical History: Right shoulder - Social History Smoking Status: Current Every Day Smoker Substance Use Type: None - Medications Home Medications: Home Medications Medication Instructions Recorded Confirmed Last Taken Type HYDROcodone/APAP 5-325 [[place] 1 - 2 each PO Q6HR PRN #14 tablet 09/30/18 Unknown Rx 5/325] Ibuprofen [Motrin 800 MG tab] 800 mg PO Q8HR PRN #20 tablet 09/30/18 Unknown Rx Metoprolol Succinate [Toprol Xl] 100 mg PO QDAY 09/30/18 09/30/18 09/29/18 History glipiZIDE XL [Glucotrol Xl] 10 mg PO QAM 09/30/18 09/30/18 09/29/18 History Sulfamethoxazole/Trimethoprim 1 each PO BID #14 tablet 10/31/18 Unknown Rx [Bactrim DS TAB] Tamsulosin HCl [Flomax] 0.4 mg PO HS #6 capsule 10/31/18 Unknown Rx Ibuprofen [Ibuprofen 800] 800 mg PO TID PRN #30 tablet 11/20/18 Unknown Rx Sulfamethoxazole/Trimethoprim 1 each PO BID 20 Days #20 tablet 12/28/18 Unknown Rx [Bactrim DS TAB] traMADoL [Ultram 50 MG tab] 50 mg PO Q6HR PRN #11 tablet 12/28/18 Unknown Rx Phenazopyridine [Pyridium] 200 mg PO BID #6 tab 09/08/19 Unknown Rx Tamsulosin [Flomax] 0.4 mg PO QDAY #10 cap 09/08/19 Unknown Rx levoFLOXacin [Levaquin TAB] 500 mg PO QDAY #10 tablet 09/08/19 Unknown Rx traMADoL [Ultram] 50 mg PO Q6HR PRN #12 tablet 09/08/19 Unknown Rx Losartan [Cozaar] 50 mg PO QDAY #30 tablet 09/26/19 Unknown Rx Nitrofurantoin [place]/M-Cryst 100 mg PO Q12HR #20 capsule 09/26/19 Unknown Rx [Macrobid CAP] traMADoL [Ultram 50 MG tab] 50 mg PO Q6HR PRN #10 tablet 09/26/19 Unknown Rx ED Physical Exam - General Limitations: No Limitations General appearance: alert, in no apparent distress - Head Head exam: Present: atraumatic, normocephalic - Eye Eye exam: Present: normal appearance. Absent: scleral icterus - ENT ENT exam: Present: mucous membranes moist - Neck Neck exam: Present: normal inspection. Absent: tenderness, meningismus - Respiratory Respiratory exam: Present: normal lung sounds bilaterally. Absent: respiratory distress - Cardiovascular Cardiovascular Exam: Present: regular rate, normal rhythm. Absent: systolic murmur, diastolic murmur, rubs, gallop - GI/Abdominal GI/Abdominal exam: Present: soft, normal bowel sounds, other (the right inguinal area is nontender.). Absent: distended, tenderness, guarding, rebound, rigid, organomegaly, mass, bruit, pulsatile mass, hernia - Rectal Rectal exam: Present: deferred - Extremities Exam Extremities exam: Present: normal inspection. Absent: calf tenderness - Back Exam Back exam: Present: normal inspection, other (patient complains of some discomfort in his right SIJ area). Absent: CVA tenderness (R), CVA tenderness (L), muscle spasm, paraspinal tenderness, vertebral tenderness - Neurological Exam Neurological exam: Present: alert, oriented X3, CN II-XII intact. Absent: motor sensory deficit - Psychiatric Psychiatric exam: Present: normal affect, normal mood - Skin Skin exam: Present: warm, dry, intact, normal color. Absent: rash ED Course Vital Signs 09/26/19 09/26/19 04:58 08:21 Temperature 98.1 F Pulse Rate 78 73 Respiratory 20 16 Rate Blood Pressure 188/79 Blood Pressure 186/70 [Left] O2 Sat by Pulse 97 96 Oximetry - Reevaluation(s) Reevaluation #1: Laboratory Results - last 24 hr 09/26/19 09/26/19 09/26/19 05:29 05:29 05:37 WBC 9.4 RBC 4.43 Hgb 13.4 Hct 39.2 MCV 88 MCH 30 MCHC 34 RDW 13.8 Plt Count 226 Lymph % (Auto) 33.0 [place] % (Auto) 8.4 H Eos % (Auto) 2.5 Baso % (Auto) 0.8 Lymph # 3.1 [place] # 0.8 Eos # 0.2 Baso # 0.1 Seg Neutrophils % 55.3 Seg Neutrophils # 5.2 Sodium 138 Potassium 3.7 Chloride 101.3 Carbon Dioxide 24 Anion Gap 16 BUN 11 Creatinine 0.8 Estimated GFR > 60 BUN/Creatinine Ratio 14 Glucose 150 H Calcium 8.8 Total Bilirubin 0.40 AST 19 ALT 15 Alkaline Phosphatase 29 L Total Protein 7.2 Albumin 4.1 Albumin/Globulin Ratio 1.3 Urine Color Christy Urine Turbidity Clear Urine pH 6.0 Ur Specific [place] 1.023 Urine Protein <15 mg/dl Urine Glucose (UA) Neg Urine Ketones Neg Urine Blood Neg Urine Nitrite Neg Urine Bilirubin Neg Urine Urobilinogen 4.0 Ur Leukocyte Esterase Sm Urine WBC (Auto) 6.0 Urine RBC (Auto) 4.0 U Epithel Cells (Auto) < 1.0 Urine Mucus Few 09/26/19 08:44 Reevaluation #2: Fortunately there is no urine culture of the previous urine which was definitely positive. It does however, seem to have responded well to Macrobid. This urine is not particularly suggestive of UTI. I will place the patient on Macrobid anyway and culture the current urine. I do not think he meets criteria for any advanced radiological study at this point his labs are essentially fine. He will be treated with an analgesic (tramadol). He will be continued on Macrobid as above. He will be referred to Dr. Ewing. He cannot identify his blood pressure medication. I am going to give him losartan. 09/26/19 08:48 ED Medical Decision Making - Lab Data Result diagrams: 09/26/19 05:29 09/26/19 05:29 Laboratory Results - last 24 hr 09/26/19 09/26/19 09/26/19 05:29 05:29 05:37 WBC 9.4 RBC 4.43 Hgb 13.4 Hct 39.2 MCV 88 MCH 30 MCHC 34 RDW 13.8 Plt Count 226 Lymph % (Auto) 33.0 [place] % (Auto) 8.4 H Eos % (Auto) 2.5 Baso % (Auto) 0.8 Lymph # 3.1 [place] # 0.8 Eos # 0.2 Baso # 0.1 Seg Neutrophils % 55.3 Seg Neutrophils # 5.2 Sodium 138 Potassium 3.7 Chloride 101.3 Carbon Dioxide 24 Anion Gap 16 BUN 11 Creatinine 0.8 Estimated GFR > 60 BUN/Creatinine Ratio 14 Glucose 150 H Calcium 8.8 Total Bilirubin 0.40 AST 19 ALT 15 Alkaline Phosphatase 29 L Total Protein 7.2 Albumin 4.1 Albumin/Globulin Ratio 1.3 Urine Color Christy Urine Turbidity Clear Urine pH 6.0 Ur Specific [place] 1.023 Urine Protein <15 mg/dl Urine Glucose (UA) Neg Urine Ketones Neg Urine Blood Neg Urine Nitrite Neg Urine Bilirubin Neg Urine Urobilinogen 4.0 Ur Leukocyte Esterase Sm Urine WBC (Auto) 6.0 Urine RBC (Auto) 4.0 U Epithel Cells (Auto) < 1.0 Urine Mucus Few Critical care attestation.: If time is entered above; I have spent that time in minutes in the direct care of this critically ill patient, excluding procedure time. ED Disposition Clinical Impression: UTI (urinary tract infection) Qualifiers: Urinary tract infection type: site unspecified Hematuria presence: without hematuria Qualified Code(s): N39.0 - Urinary tract infection, site not specified Chronic pain Qualifiers: Chronic pain type: chronic pain syndrome Qualified Code(s): G89.4 - Chronic pain syndrome Type II diabetes mellitus Qualifiers: Diabetes mellitus custodial insulin use: unspecified intermission coordinator insulin use status Diabetes mellitus complication status: without complication Qualified Code(s): E11.9 - Type 2 diabetes mellitus without complications Disposition: TO HOME OR SELFCARE Is pt being admited?: No Does the pt Need Aspirin: No Condition: Stable Instructions: Diabetes Mellitus Type 2 in Adults (ED), Chronic Pain (ED), Urinary Tract Infection in Men (ED) Additional Instructions: Follow-up with primary care physician. Return any acute change or problem. R axis directed. Follow-up on your urine culture test in 2-3 days. I have given the information requested on Dr. Ewing. Prescriptions: Losartan [Cozaar] 50 mg PO QDAY #30 tablet Nitrofurantoin [place]/M-Cryst [Macrobid CAP] 100 mg PO Q12HR #20 capsule traMADoL [Ultram 50 MG tab] 50 mg PO Q6HR PRN #10 tablet PRN Reason: Pain Referrals: usual, primary care [Other] - 3-5 Days SURY EWING MD [Staff Physician] - 3-5 Days Time of Disposition: 08:55
[2019-09-26 09:05] VITALS: BP 177/67
== END 2019-09-26 09:43 | disposition home or self-care (01) ==
LOC: ED 04:47
DX: N39.0 Urinary tract infection, site not specified (principal); E11.9 Type 2 diabetes mellitus without complications; M19.90 Unspecified osteoarthritis, unspecified site; I10 Essential (primary) hypertension; F17.200 Nicotine dependence, unspecified, uncomplicated; Z98.890 Other specified postprocedural states; Z79.899 Other long term (current) drug therapy
CPT/HCPCS: 36415; 80053; 81001; 85025; 99283

== ENCOUNTER 2019-11-02 20:07 | Emergency (ER) | payer MEDICARE ==
[2019-11-02 21:45] VITALS: BP 153/99
--- NOTE | 2019-11-02 22:14 | Emergency Department Report ---
Blank Doc - Documentation Documentation: 59-year-old male that presents with urinary changes and back pain. This initial assessment/diagnostic orders/clinical plan/treatment(s) is/are subject to change based on patient's health status, clinical progression and re- assessment by fellow clinical providers in the ED. Further treatment and workup at subsequent clinical providers discretion. Patient/guardians urged not to elope from the ED as their condition may be serious if not clinically assessed and managed. Initial orders include: 1- Patient sent to [facility] for further evaluation and treatment 2- UA
[2019-11-02 23:42] LABS: Bilirubin,Urine NEG (Negative); Blood,Urine NEG (Negative); Color,Urine Yellow (Yellow); Mucus,Urine FEW /HPF; Protein,Urine <15 mg/dL mg/dL (Negative)
[2019-11-03] MEDS ORDERED: cefTRIAXone/NS 1 GM/50 ML 1 GM/50 ML BAG IV ONE (01:39)
[2019-11-03] MEDS ORDERED: SODIUM CHLORIDE 0.9% 1000 ML 1,000 ML IV ONE (01:39)
[2019-11-03] MEDS ORDERED: ONDANSETRON 4 MG/2 ML INJ IV ONE (01:41)
[2019-11-03] MEDS ORDERED: KETOROLAC 30 MG/1 ML INJ IV ONE (01:41)
[2019-11-03 02:10] LABS: Basophils # (Auto) 0.1 K/mm3 (0.0-0.1); Basophils % (Auto) 1.2 % (0.0-1.8); Eosinophils # (Auto) 0.3 K/mm3 (0.0-0.4); Eosinophils % (Auto) 3.2 % (0.0-4.3); Hematocrit 42.9 % (35.5-45.6); Hemoglobin 14.7 gm/dl (11.8-15.2); Lymphocytes # (Auto) 2.9 K/mm3 (1.2-5.4); Lymphocytes % (Auto) 28.4 % (13.4-35.0); Mean Corpuscular HGB Conc 34 % (32-34); Mean Corpuscular Volume 88 fl (84-94); Monocytes # (Auto) 0.8 K/mm3 (0.0-0.8); Monocytes % (Auto) 7.7 % (0.0-7.3); Platelet Count 227 K/mm3 (140-440); Red Blood Count 4.88 M/mm3 (3.65-5.03)
--- NOTE | 2019-11-03 02:23 | Emergency Department Report ---
ED Abdominal Pain HPI - General Chief Complaint: Back Pain/Injury Stated Complaint: LOWER BACK PAIN, FREQUENT URINATING Time Seen by Provider: 11/02/19 22:13 Source: patient Mode of arrival: Ambulatory Limitations: Physical Limitation - History of Present Illness Initial Comments: Ms Menendez is a 59-year-old male with hx of low back pain , frequent uti, bph, renal stones,renal cysts and DMII. that presents with dysuria with hematuria and back pain. pt has hx of same with frequent UTI, . no postate CA, BPH, pt is making urine, occassional renal stone, pain is 4/10 tonight. Pain is exacerbated by voiding, pain is relieved by nothing. MD Complaint: flank pain Onset/Timin -: days(s) Location: suprapubic, bilateral flank Radiation: suprapubic Severity: moderate Severity scale (0 -10): 4 Quality: aching Consistency: intermittent Improves With: nothing Worsens With: other (voiding ) Context: other (frequent UTI, BPH, Renal Stones) Associated Symptoms: dysuria. denies: nausea, vomiting, fever, chills - Related Data Home Medications Medication Instructions Recorded Confirmed Last Taken Metoprolol Succinate [Toprol Xl] 100 mg PO QDAY 09/30/18 09/30/18 09/29/18 glipiZIDE XL [Glucotrol Xl] 10 mg PO QAM 09/30/18 09/30/18 09/29/18 Previous Rx's Medication Instructions Recorded Last Taken Type HYDROcodone/APAP 5-325 [[place] 1 - 2 each PO Q6HR PRN #14 tablet 09/30/18 Unknown Rx 5/325] Ibuprofen [Motrin 800 MG tab] 800 mg PO Q8HR PRN #20 tablet 09/30/18 Unknown Rx Sulfamethoxazole/Trimethoprim 1 each PO BID #14 tablet 10/31/18 Unknown Rx [Bactrim DS TAB] Tamsulosin HCl [Flomax] 0.4 mg PO HS #6 capsule 10/31/18 Unknown Rx Ibuprofen [Ibuprofen 800] 800 mg PO TID PRN #30 tablet 11/20/18 Unknown Rx Sulfamethoxazole/Trimethoprim 1 each PO BID 20 Days #20 tablet 12/28/18 Unknown Rx [Bactrim DS TAB] traMADoL [Ultram 50 MG tab] 50 mg PO Q6HR PRN #11 tablet 12/28/18 Unknown Rx Phenazopyridine [Pyridium] 200 mg PO BID #6 tab 09/08/19 Unknown Rx Tamsulosin [Flomax] 0.4 mg PO QDAY #10 cap 09/08/19 Unknown Rx levoFLOXacin [Levaquin TAB] 500 mg PO QDAY #10 tablet 09/08/19 Unknown Rx traMADoL [Ultram] 50 mg PO Q6HR PRN #12 tablet 09/08/19 Unknown Rx Losartan [Cozaar] 50 mg PO QDAY #30 tablet 09/26/19 Unknown Rx Nitrofurantoin [place]/M-Cryst 100 mg PO Q12HR #20 capsule 09/26/19 Unknown Rx [Macrobid CAP] traMADoL [Ultram 50 MG tab] 50 mg PO Q6HR PRN #10 tablet 09/26/19 Unknown Rx Ketorolac [Toradol] 10 mg PO Q6H PRN #12 tablet 11/03/19 Unknown Rx levoFLOXacin [Levaquin TAB] 500 mg PO DAILY #10 tablet 11/03/19 Unknown Rx Allergies Allergy/AdvReac Type Severity Reaction Status Date / Time No Known Allergies Allergy Verified 11/02/19 20:34 ED Review of Systems ROS: Stated complaint: LOWER BACK PAIN, FREQUENT URINATING Other details as noted in HPI Constitutional: denies: chills, fever Eyes: denies: eye pain, eye discharge, vision change ENT: denies: ear pain, throat pain Respiratory: denies: cough, shortness of breath, wheezing Cardiovascular: denies: chest pain, palpitations Endocrine: no symptoms reported Gastrointestinal: abdominal pain (bilat flank pain ). denies: nausea, vomiting, melena Genitourinary: urgency, dysuria, frequency, hematuria. denies: discharge, testicular pain, testicular mass Musculoskeletal: back pain, arthralgia, myalgia. denies: joint swelling Skin: as per HPI Neurological: denies: headache, weakness, paresthesias Psychiatric: as per HPI Hematological/Lymphatic: denies: easy bleeding, easy bruising ED Past Medical Hx - Past Medical History Hx Hypertension: Yes Hx Congestive Heart Failure: No Hx Diabetes: Yes Hx Arthritis: Yes Hx Asthma: No Hx COPD: No Hx HIV: No Additional medical history: Neuropathy, Chronic Pain, bph - Surgical History Additional Surgical History: Right shoulder - Social History Smoking Status: Never Smoker Substance Use Type: None - Medications Home Medications: Home Medications Medication Instructions Recorded Confirmed Last Taken Type HYDROcodone/APAP 5-325 [[place] 1 - 2 each PO Q6HR PRN #14 tablet 09/30/18 Un known Rx 5/325] Ibuprofen [Motrin 800 MG tab] 800 mg PO Q8HR PRN #20 tablet 09/30/18 Unknown Rx Metoprolol Succinate [Toprol Xl] 100 mg PO QDAY 09/30/18 09/30/18 09/29/18 History glipiZIDE XL [Glucotrol Xl] 10 mg PO QAM 09/30/18 09/30/18 09/29/18 History Sulfamethoxazole/Trimethoprim 1 each PO BID #14 tablet 10/31/18 Unknown Rx [Bactrim DS TAB] Tamsulosin HCl [Flomax] 0.4 mg PO HS #6 capsule 10/31/18 Unknown Rx Ibuprofen [Ibuprofen 800] 800 mg PO TID PRN #30 tablet 11/20/18 Unknown Rx Sulfamethoxazole/Trimethoprim 1 each PO BID 20 Days #20 tablet 12/28/18 Unknown Rx [Bactrim DS TAB] traMADoL [Ultram 50 MG tab] 50 mg PO Q6HR PRN #11 tablet 12/28/18 Unknown Rx Phenazopyridine [Pyridium] 200 mg PO BID #6 tab 09/08/19 Unknown Rx Tamsulosin [Flomax] 0.4 mg PO QDAY #10 cap 09/08/19 Unknown Rx levoFLOXacin [Levaquin TAB] 500 mg PO QDAY #10 tablet 09/08/19 Unknown Rx traMADoL [Ultram] 50 mg PO Q6HR PRN #12 tablet 09/08/19 Unknown Rx Losartan [Cozaar] 50 mg PO QDAY #30 tablet 09/26/19 Unknown Rx Nitrofurantoin [place]/M-Cryst 100 mg PO Q12HR #20 capsule 09/26/19 Unknown Rx [Macrobid CAP] traMADoL [Ultram 50 MG tab] 50 mg PO Q6HR PRN #10 tablet 09/26/19 Unknown Rx Ketorolac [Toradol] 10 mg PO Q6H PRN #12 tablet 11/03/19 Unknown Rx levoFLOXacin [Levaquin TAB] 500 mg PO DAILY #10 tablet 11/03/19 Unknown Rx ED Physical Exam - General Limitations: Physical Limitation General appearance: alert - Head Head exam: Present: atraumatic, normocephalic - Eye Eye exam: Present: normal appearance, PERRL, EOMI Pupils: Present: normal accommodation - ENT ENT exam: Present: normal exam - Neck Neck exam: Present: normal inspection, full ROM. Absent: tenderness - Respiratory Respiratory exam: Present: normal lung sounds bilaterally. Absent: respiratory distress, wheezes - Cardiovascular Cardiovascular Exam: Present: regular rate, normal rhythm, normal heart sounds. Absent: systolic murmur, diastolic murmur, rubs, gallop - GI/Abdominal GI/Abdominal exam: Present: soft, distended, normal bowel sounds. Absent: tenderness (bilat flank ), guarding, rebound, rigid, bruit, hernia - Rectal Rectal exam: Present: deferred - Extremities Exam Extremities exam: Present: normal inspection, full ROM, normal capillary refill. Absent: tenderness, pedal edema - Back Exam Back exam: Present: normal inspection, full ROM, tenderness, CVA tenderness (R), CVA tenderness (L), paraspinal tenderness. Absent: vertebral tenderness, rash noted - Expanded Back Exam Expanded Back exam: Absent: saddle anesthesia Back exam: Positive Straight Leg Raise: Left, Right - Neurological Exam Neurological exam: Present: alert, oriented X3, CN II-XII intact, normal gait, reflexes normal. Absent: motor sensory deficit - Expanded Neurological Exam Expanded Patient oriented to: Present: person, place, time Speech: Present: fluid speech Motor strength exam: RUE: 5, LUE: 5, RLE: 5, LLE: 5 Best Eye Response ([place]): (4) open spontaneously Best Motor Response ([place]): (6) obeys commands Best Verbal Response ([place]): (5) oriented [place] Total: 15 - Psychiatric Psychiatric exam: Present: normal affect, normal mood - Skin Skin exam: Present: warm, dry, intact, normal color. Absent: rash ED Course Vital Signs 11/02/19 11/02/19 20:39 22:14 Temperature 97.9 F 97.9 F Pulse Rate 104 H 101 H Respiratory 18 18 Rate Blood Pressure 153/99 153/99 O2 Sat by Pulse 97 96 Oximetry ED Medical Decision Making - Lab Data Result diagrams: 11/03/19 01:58 11/03/19 01:58 Lab Results 11/02/19 11/03/19 11/03/19 Range/Units 23:25 01:58 01:58 WBC 10.1 (4.5-11.0) K/mm3 RBC 4.88 (3.65-5.03) M/mm3 Hgb 14.7 (11.8-15.2) gm/dl Hct 42.9 (35.5-45.6) % MCV 88 (84-94) fl MCH 30 (28-32) pg MCHC 34 (32-34) % RDW 14.0 (13.2-15.2) % Plt Count 227 (140-440) K/mm3 Lymph % (Auto) 28.4 (13.4-35.0) % [place] % (Auto) 7.7 H (0.0-7.3) % Eos % (Auto) 3.2 (0.0-4.3) % Baso % (Auto) 1.2 (0.0-1.8) % Lymph # 2.9 (1.2-5.4) K/mm3 Bell # 0.8 (0.0-0.8) K/mm3 Eos # 0.3 (0.0-0.4) K/mm3 Baso # 0.1 (0.0-0.1) K/mm3 Seg Neutrophils % 59.5 (40.0-70.0) % Seg Neutrophils # 6.0 (1.8-7.7) K/mm3 Sodium 137 (137-145) mmol/L Potassium 3.5 L (3.6-5.0) mmol/L Chloride 97.0 L (98-107) mmol/L Carbon Dioxide 25 (22-30) mmol/L Anion Gap 19 mmol/L BUN 13 (9-20) mg/dL Creatinine 0.8 (0.8-1.5) mg/dL Estimated GFR > 60 ml/min BUN/Creatinine Ratio 16 % Glucose 257 H (75-100) mg/dL Calcium 9.6 (8.4-10.2) mg/dL Total Bilirubin 0.40 (0.1-1.2) mg/dL AST 12 (5-40) units/L ALT 14 (7-56) units/L Alkaline Phosphatase 36 (35-129) units/L Total Protein 7.5 (6.3-8.2) g/dL Albumin 4.4 (3.9-5) g/dL Albumin/Globulin Ratio 1.4 % Urine Color Yellow (Yellow) Urine Turbidity Slightly-cloudy (Clear) Urine pH 5.0 (5.0-7.0) Ur Specific [place] 1.017 (1.003-1.030) Urine Protein <15 mg/dl (Negative) mg/dL Urine Glucose (UA) 50 (Negative) mg/dL Urine Ketones Neg (Negative) mg/dL Urine Blood Neg (Negative) Urine Nitrite Neg (Negative) Urine Bilirubin Neg (Negative) Urine Urobilinogen 4.0 (<2.0) mg/dL Ur Leukocyte Esterase Lg (Negative) Urine WBC (Auto) 38.0 H (0.0-6.0) /HPF Urine RBC (Auto) 6.0 (0.0-6.0) /HPF U Epithel Cells (Auto) < 1.0 (0-13.0) /HPF Urine Mucus Few /HPF - Medical Decision Making I have reviewed previous CT scans of abdomen pelvis for renal adenomas, no renal stones however recurrent UTIs, and BPH patient states pain is much improved, he is tolerating p.o., no visible hematuria noted, no fever or chills, patient was given Rocephin 1 g IV piggyback will DC to home with prescription for Levaquin, patient will follow-up with nephrology as scheduled, follow-up with urology as scheduled, return to ED should symptoms worsen. Patient verbalizes agreement and understanding the discharge plan will be DC'd to home in stable condition at this time Critical care attestation.: If time is entered above; I have spent that time in minutes in the direct care of this critically ill patient, excluding procedure time. ED Disposition Clinical Impression: UTI (urinary tract infection) Qualifiers: Urinary tract infection type: acute cystitis Hematuria presence: with hematuria Qualified Code(s): N30.01 - Acute cystitis with hematuria Renal adenoma Qualifiers: Laterality: unspecified laterality Qualified Code(s): D30.00 - Benign neoplasm of unspecified kidney Disposition: DC-01 TO HOME OR SELFCARE Is pt being admited?: No Does the pt Need Aspirin: No Condition: Stable Instructions: Urinary Tract Infection in Men (ED) Prescriptions: levoFLOXacin [Levaquin TAB] 500 mg PO DAILY #10 tablet Ketorolac [Toradol] 10 mg PO Q6H PRN #12 tablet PRN Reason: Pain Referrals: SURY MCCLENDON MD [Staff Physician] - 3-5 Days EMILY MCMANUS MD [Staff Physician] - 3-5 Days Time of Disposition: 03:30
[2019-11-03 02:32] LABS: Alanine Aminotransferase 14 units/L (7-56); Albumin 4.4 g/dL (3.9-5); BUN/Creatinine Ratio 16; Blood Urea Nitrogen 13 mg/dL (9-20); Calcium 9.6 mg/dL (8.4-10.2); Hemolysis Index 9
== END 2019-11-03 04:48 | disposition home or self-care (01) ==
LOC: ED 20:07
DX: N39.0 Urinary tract infection, site not specified (principal); D30.00 Benign neoplasm of unspecified kidney; I10 Essential (primary) hypertension; E11.9 Type 2 diabetes mellitus without complications; M19.90 Unspecified osteoarthritis, unspecified site; Z98.890 Other specified postprocedural states; Z79.1 Long term (current) use of non-steroidal anti-inflammatories (NSAID); Z88.8 Allergy status to other drugs, medicaments and biological substances
CPT/HCPCS: 36415; 80053; 81001; 85025; 87086; 96365; 96375; 99283; J0696; J1885; J2405; J7030

== ENCOUNTER 2020-03-16 06:16 | Emergency (ER) | payer MEDICARE ==
[2020-03-16 06:32] VITALS: BP 188/99
[2020-03-16 07:06] LABS: Bacteria,Urine 1+ /HPF (Negative); Bilirubin,Urine NEG (Negative); Blood,Urine SM (Negative); Color,Urine Yellow (Yellow); Mucus,Urine 2+ /HPF
[2020-03-16] MEDS ORDERED: cefTRIAXone/NS 2 GM/100 ML 2 GM/100 ML BAG IV ONE (07:17)
[2020-03-16] MEDS ORDERED: KETOROLAC 30 MG/1 ML INJ IV ONE (07:18)
[2020-03-16 07:32] LABS: Alanine Aminotransferase 15 units/L (7-56); Albumin 4.2 g/dL (3.9-5); BUN/Creatinine Ratio 14; Blood Urea Nitrogen 11 mg/dL (9-20); Hemolysis Index 25
[2020-03-16] MEDS ORDERED: SODIUM CHLORIDE 0.9% 500 ML 500 ML IV ONE (07:38)
--- NOTE | 2020-03-16 07:38 | Emergency Department Report ---
ED Abdominal Pain HPI - General Chief Complaint: Abdominal Pain Stated Complaint: LOWER ABDOMINAL PAIN, PAIN IN BUTTOCKS Time Seen by Provider: 03/16/20 06:56 Source: patient Mode of arrival: Ambulatory Limitations: Physical Limitation - History of Present Illness Initial Comments: This is a pleasant 59-year-old male with a past medical history of hypertension, diabetes, BPH peripheral neuropathy, who presents the emergency department with chief complaint of "I think my UTI is back." Patient reports for the past 2 years he has had more frequent urinary tract infections and is being followed by his urologist but does not feel as if he is getting any better. He also complains of stinging pain in both feet, lower back pain and generalized weaknes s. He reports he has been starting to use a cane due to feeling overall weak and tired. His symptoms have been ongoing for the past week. He denies any associated fever, chills, night sweats, headache, dizziness, blurry vision, chest pain, shortness of breath, nausea, vomiting, diarrhea, melena, hematochezia or any other associated symptoms. - Related Data Home Medications Medication Instructions Recorded Confirmed Last Taken Metoprolol Succinate [Toprol Xl] 100 mg PO QDAY 09/30/18 09/30/18 09/29/18 glipiZIDE XL [Glucotrol Xl] 10 mg PO QAM 09/30/18 09/30/18 09/29/18 Previous Rx's Medication Instructions Recorded Last Taken Type HYDROcodone/APAP 5-325 [Brimley 1 - 2 each PO Q6HR PRN #14 tablet 09/30/18 Unknown Rx 5/325] Ibuprofen [Motrin 800 MG tab] 800 mg PO Q8HR PRN #20 tablet 09/30/18 Unknown Rx Sulfamethoxazole/Trimethoprim 1 each PO BID #14 tablet 10/31/18 Unknown Rx [Bactrim DS TAB] Tamsulosin HCl [Flomax] 0.4 mg PO HS #6 capsule 10/31/18 Unknown Rx Ibuprofen [Ibuprofen 800] 800 mg PO TID PRN #30 tablet 11/20/18 Unknown Rx Sulfamethoxazole/Trimethoprim 1 each PO BID 20 Days #20 tablet 12/28/18 Unknown Rx [Bactrim DS TAB] traMADoL [Ultram 50 MG tab] 50 mg PO Q6HR PRN #11 tablet 12/28/18 Unknown Rx Phenazopyridine [Pyridium] 200 mg PO BID #6 tab 09/08/19 Unknown Rx Tamsulosin [Flomax] 0.4 mg PO QDAY #10 cap 09/08/19 Unknown Rx levoFLOXacin [Levaquin TAB] 500 mg PO QDAY #10 tablet 09/08/19 Unknown Rx traMADoL [Ultram] 50 mg PO Q6HR PRN #12 tablet 09/08/19 Unknown Rx Losartan [Cozaar] 50 mg PO QDAY #30 tablet 09/26/19 Unknown Rx Nitrofurantoin Coffey/M-Cryst 100 mg PO Q12HR #20 capsule 09/26/19 Unknown Rx [Macrobid CAP] traMADoL [Ultram 50 MG tab] 50 mg PO Q6HR PRN #10 tablet 09/26/19 Unknown Rx Ketorolac [Toradol] 10 mg PO Q6H PRN #12 tablet 11/03/19 Unknown Rx levoFLOXacin [Levaquin TAB] 500 mg PO DAILY #10 tablet 11/03/19 Unknown Rx Ciprofloxacin HCl [Ciprofloxacin 500 mg PO Q12HR #20 tab 03/16/20 Unknown Rx TAB] Allergies Allergy/AdvReac Type Severity Reaction Status Date / Time No Known Allergies Allergy Verified 11/02/19 20:34 ED Review of Systems ROS: Stated complaint: LOWER ABDOMINAL PAIN, PAIN IN BUTTOCKS Other details as noted in HPI Comment: All other systems reviewed and negative Constitutional: denies: chills, fever Eyes: denies: eye pain, eye discharge, vision change ENT: denies: ear pain, throat pain Respiratory: denies: cough, shortness of breath, wheezing Cardiovascular: denies: chest pain, palpitations Endocrine: no symptoms reported Gastrointestinal: as per HPI, abdominal pain. denies: nausea, diarrhea Genitourinary: as per HPI Musculoskeletal: as per HPI, back pain, arthralgia. denies: joint swelling Skin: denies: rash, lesions Neurological: as per HPI, weakness. denies: headache, paresthesias Psychiatric: denies: anxiety, depression Hematological/Lymphatic: denies: easy bleeding, easy bruising ED Past Medical Hx - Past Medical History Previous Medical History?: Yes Hx Hypertension: Yes Hx Congestive Heart Failure: No Hx Diabetes: Yes Hx Arthritis: Yes Hx Asthma: No Hx COPD: No Hx HIV: No Additional medical history: Neuropathy, Chronic Pain, bph - Surgical History Past Surgical History?: Yes Additional Surgical History: Right shoulder - Social History Smoking Status: Current Every Day Smoker Substance Use Type: None - Medications Home Medications: Home Medications Medication Instructions Recorded Confirmed Last Taken Type HYDROcodone/APAP 5-325 [Brimley 1 - 2 each PO Q6HR PRN #14 tablet 09/30/18 Unknown Rx 5/325] Ibuprofen [Motrin 800 MG tab] 800 mg PO Q8HR PRN #20 tablet 09/30/18 Unknown Rx Metoprolol Succinate [Toprol Xl] 100 mg PO QDAY 09/30/18 09/30/18 09/29/18 History glipiZIDE XL [Glucotrol Xl] 10 mg PO QAM 09/30/18 09/30/18 09/29/18 History Sulfamethoxazole/Trimethoprim 1 each PO BID #14 tablet 10/31/18 Unknown Rx [Bactrim DS TAB] Tamsulosin HCl [Flomax] 0.4 mg PO HS #6 capsule 10/31/18 Unknown Rx Ibuprofen [Ibuprofen 800] 800 mg PO TID PRN #30 tablet 11/20/18 Unknown Rx Sulfamethoxazole/Trimethoprim 1 each PO BID 20 Days #20 tablet 12/28/18 Unknown Rx [Bactrim DS TAB] traMADoL [Ultram 50 MG tab] 50 mg PO Q6HR PRN #11 tablet 12/28/18 Unknown Rx Phenazopyridine [Pyridium] 200 mg PO BID #6 tab 09/08/19 Unknown Rx Tamsulosin [Flomax] 0.4 mg PO QDAY #10 cap 09/08/19 Unknown Rx levoFLOXacin [Levaquin TAB] 500 mg PO QDAY #10 tablet 09/08/19 Unknown Rx traMADoL [Ultram] 50 mg PO Q6HR PRN #12 tablet 09/08/19 Unknown Rx Losartan [Cozaar] 50 mg PO QDAY #30 tablet 09/26/19 Unknown Rx Nitrofurantoin Coffey/M-Cryst 100 mg PO Q12HR #20 capsule 09/26/19 Unknown Rx [Macrobid CAP] traMADoL [Ultram 50 MG tab] 50 mg PO Q6HR PRN #10 tablet 09/26/19 Unknown Rx Ketorolac [Toradol] 10 mg PO Q6H PRN #12 tablet 11/03/19 Unknown Rx levoFLOXacin [Levaquin TAB] 500 mg PO DAILY #10 tablet 11/03/19 Unknown Rx Ciprofloxacin HCl [Ciprofloxacin 500 mg PO Q12HR #20 tab 03/16/20 Unknown Rx TAB] ED Physical Exam - General Limitations: Physical Limitation General appearance: alert, in no apparent distress - Head Head exam: Present: atraumatic, normocephalic - Eye Eye exam: Present: normal appearance, PERRL, EOMI Pupils: Present: normal accommodation - ENT ENT exam: Present: normal exam, normal orophraynx, mucous membranes moist - Neck Neck exam: Present: normal inspection, full ROM. Absent: tenderness, meningismus - Respiratory Respiratory exam: Present: normal lung sounds bilaterally. Absent: respiratory distress, wheezes, rales, rhonchi, stridor - Cardiovascular Cardiovascular Exam: Present: regular rate, normal rhythm, normal heart sounds. Absent: systolic murmur, diastolic murmur, rubs, gallop - GI/Abdominal GI/Abdominal exam: Present: soft, tenderness (Mildly tender to left lower quadrant, right lower quadrant suprapubic abdomen, no rebound or guarding,), normal bowel sounds. Absent: distended, guarding, rebound - Rectal Rectal exam: Present: deferred - Extremities Exam Extremities exam: Present: normal inspection, full ROM, normal capillary refill, other (Unable to palpate DP and PT pulses bilaterally warm extremities, there is capillary refill although slightly delayed in all toes of both feet no ulcers or skin breakdown). Absent: tenderness, calf tenderness (No posterior calf tenderness, negative Homans sign bilaterally) - Back Exam Back exam: Present: normal inspection, full ROM. Absent: tenderness, CVA tenderness (R), CVA tenderness (L) - Neurological Exam Neurological exam: Present: alert, oriented X3, CN II-XII intact, normal gait (With assistance with a cane). Absent: motor sensory deficit - Psychiatric Psychiatric exam: Present: normal affect, normal mood - Skin Skin exam: Present: warm, dry, intact, normal color. Absent: rash ED Course Vital Signs 03/16/20 03/16/20 03/16/20 06:25 07:35 07:47 Temperature 98.1 F Pulse Rate 94 H Respiratory 18 18 18 Rate Blood Pressure 188/99 Blood Pressure [Right] O2 Sat by Pulse 98 Oximetry 03/16/20 03/16/20 07:55 09:22 Temperature Pulse Rate 96 H Respiratory 18 18 Rate Blood Pressure Blood Pressure 188/99 [Right] O2 Sat by Pulse 98 96 Oximetry - Reevaluation(s) Reevaluation #1: 03/16/20 09:40 I was called by the radiologist for findings of arterial occlusions of bilateral iliacs. I reassessed the patient and he has cap refill that is slightly delayed in all of his toes his DP and PT pulses are unable to be palpated. I added coags, lactic acid and a CK. Discussed with attending Dr. Brito who recommended waiting for the lactate and then consulting vascular surgery for plan. Reevaluation #2: 03/16/20 11:32 I was informed by the nursing staff that the patient wanted to leave AGAINST MEDICAL ADVICE. The patient understood that by leaving he is threatening loss of limb or life and that currently I am very concerned that he may have an arterial occlusion. He understood this and needed to go. He will still be given outpatient follow-up with vascular surgery. Recommend he start taking daily aspirin and return to emerge department any change or worsening symptoms. He verbalized understanding of these instructions. He is competent and able to make informed decisions. 03/16/20 11:32 At this time still waiting on vascular surgery consultation. ED Medical Decision Making - Lab Data Result diagrams: 03/16/20 06:52 03/16/20 06:52 Lab Results 03/16/20 03/16/20 03/16/20 Range/Units 06:52 06:52 08:51 WBC 8.6 (4.5-11.0) K/mm3 RBC 4.88 (3.65-5.03) M/mm3 Hgb 14.7 (11.8-15.2) gm/dl Hct 43.3 (35.5-45.6) % MCV 89 (84-94) fl MCH 30 (28-32) pg MCHC 34 (32-34) % RDW 13.6 (13.2-15.2) % Plt Count 200 (140-440) K/mm3 Lymph % (Auto) 33.4 (13.4-35.0) % Coffey % (Auto) 7.5 H (0.0-7.3) % Eos % (Auto) 2.9 (0.0-4.3) % Baso % (Auto) Doughnut Icer Lymph # 2.9 (1.2-5.4) K/mm3 Coffey # 0.6 (0.0-0.8) K/mm3 Eos # 0.2 (0.0-0.4) K/mm3 Baso # 0.1 (0.0-0.1) K/mm3 Seg Neutrophils % 55.2 (40.0-70.0) % Seg Neutrophils # 4.7 (1.8-7.7) K/mm3 PT (12.2-14.9) Sec. INR (0.87-1.13) APTT (24.2-36.6) Sec. Sodium 134 L (137-145) mmol/L Potassium 3.6 (3.6-5.0) mmol/L Chloride 97.0 L (98-107) mmol/L Carbon Dioxide 23 (22-30) mmol/L Anion Gap 18 mmol/L BUN 11 (9-20) mg/dL Creatinine 0.8 (0.8-1.5) mg/dL Estimated GFR > 60 ml/min BUN/Creatinine Ratio 14 % Glucose 326 H (75-100) mg/dL Lactic Acid 1.70 (0.7-2.0) mmol/L Calcium 9.0 (8.4-10.2) mg/dL Total Bilirubin 0.50 (0.1-1.2) mg/dL AST 14 (5-40) units/L ALT 15 (7-56) units/L Alkaline Phosphatase 41 (35-129) units/L Total Protein 7.2 (6.3-8.2) g/dL Albumin 4.2 (3.9-5) g/dL Albumin/Globulin Ratio 1.4 % Urine Color (Yellow) Urine Turbidity (Clear) Urine pH (5.0-7.0) Ur Specific Ramona (1.003-1.030) Urine Protein (Negative) mg/dL Urine Glucose (UA) (Negative) mg/dL Urine Ketones (Negative) mg/dL Urine Blood (Negative) Urine Nitrite (Negative) Urine Bilirubin (Negative) Urine Urobilinogen (<2.0) mg/dL Ur Leukocyte Esterase (Negative) Urine WBC (Auto) (0.0-6.0) /HPF Urine RBC (Auto) (0.0-6.0) /HPF Urine Bacteria (Auto) (Negative) /HPF Urine Mucus /HPF 03/16/20 03/16/20 Range/Units 08:59 Unknown WBC (4.5-11.0) K/mm3 RBC (3.65-5.03) M/mm3 Hgb (11.8-15.2) gm/dl Hct (35.5-45.6) % MCV (84-94) fl MCH (28-32) pg MCHC (32-34) % RDW (13.2-15.2) % Plt Count (140-440) K/mm3 Lymph % (Auto) (13.4-35.0) % Coffey % (Auto) (0.0-7.3) % Eos % (Auto) (0.0-4.3) % Baso % (Auto) Lymph # (1.2-5.4) K/mm3 Coffey # (0.0-0.8) K/mm3 Eos # (0.0-0.4) K/mm3 Baso # (0.0-0.1) K/mm3 Seg Neutrophils % (40.0-70.0) % Seg Neutrophils # (1.8-7.7) K/mm3 PT 12.0 L (12.2-14.9) Sec. INR 0.90 (0.87-1.13) APTT 29.1 (24.2-36.6) Sec. Sodium (137-145) mmol/L Potassium (3.6-5.0) mmol/L Chloride (98-107) mmol/L Carbon Dioxide (22-30) mmol/L Anion Gap mmol/L BUN (9-20) mg/dL Creatinine (0.8-1.5) mg/dL Estimated GFR ml/min BUN/Creatinine Ratio % Glucose (75-100) mg/dL Lactic Acid (0.7-2.0) mmol/L Calcium (8.4-10.2) mg/dL Total Bilirubin (0.1-1.2) mg/dL AST (5-40) units/L ALT (7-56) units/L Alkaline Phosphatase (35-129) units/L Total Protein (6.3-8.2) g/dL Albumin (3.9-5) g/dL Albumin/Globulin Ratio % Urine Color Yellow (Yellow) Urine Turbidity Cloudy (Clear) Urine pH 6.0 (5.0-7.0) Ur Specific Ramona 1.023 (1.003-1.030) Urine Protein 30 mg/dl (Negative) mg/dL Urine Glucose (UA) >=500 (Negative) mg/dL Urine Ketones Neg (Negative) mg/dL Urine Blood Sm (Negative) Urine Nitrite Neg (Negative) Urine Bilirubin Neg (Negative) Urine Urobilinogen 4.0 (<2.0) mg/dL Ur Leukocyte Esterase Mod (Negative) Urine WBC (Auto) 176.0 H (0.0-6.0) /HPF Urine RBC (Auto) 7.0 (0.0-6.0) /HPF Urine Bacteria (Auto) 1+ (Negative) /HPF Urine Mucus 2+ /HPF - Radiology Data Radiology results: report reviewed Cat Scan Report Signed Patient: BHANU BRAGA MR#: [id number] : 1960 Acct:[id number] Age/Sex: 59 / M ADM Date: 03/16/20 Loc: ED Attending Dr: Ordering Physician: CONRADO RUIZ Date of Service: 03/16/20 Procedure(s): CT abdomen pelvis w con Accession Number(s): [id number] cc: CONRADO RUIZ CT ABDOMEN AND PELVIS WITH CONTRAST HISTORY: MAIN. Severe left flank pain for the last 3 months COMPARISON: None. TECHNIQUE: CT images of the abdomen and pelvis were obtained following administration of intravenous contrast. All CT scans at this location are performed using CT dose reduction for ALARA by means of automated exposure control. CONTRAST: 100 ml of intravenous contrast administered. FINDINGS: Lungs/bones: There is mild bibasilar interstitial prominence with no consolidation or effusion. Degenerative changes are present throughout the spine with a small well-defined lucent lesion at L3 and otherwise no acute osseous abnormality. Abdomen/pelvis: The liver is mildly enlarged with no focal mass identified. The gallbladder, spleen, pancreas, kidneys, and proximal GI tract appear unremarkable. There is mild bilateral adrenal thickening. Moderate atherosclerotic disease is present throughout the abdominal aorta and branch vessels. There is occlusion of the left common iliac artery extending into the external iliac artery. There is reconstitution of blood flow at the CONSTRUCTION RIGGER. There is also occlusion of blood flow in the right external iliac artery extending to the CONSTRUCTION RIGGER where there is reconstitution of flow. The right internal iliac artery is patent. The left internal iliac artery is initially occluded at its origin but is then reconstituted distally via collateral vessels. The prostate is enlarged (nearly 7 cm in size) and indents the bladder base. No pelvic free fluid. No acute colonic abnormality identified. IMPRESSION: 1. Vascular findings as outlined above involving the bilateral iliac arteries where there are segments of occlusion. 2. Additional incidental findings as above. COMMUNICATION: Time of Communication (SUPERVISOR MOLD CONSTRUCTION/CDT): 7:37 AM Licensed Practitioner Receiving Report: CONRADO Clements Signer Name: Leonardo Fontanez MD Signed: 03/16/2020 8:39 AM Workstation Name: [id number] Transcribed By: KATI Dictated By: Leonardo Fontanez MD Electronically Authenticated By: Leonardo Fontanez MD Signed Date/Time: 03/16/20 0839 - Medical Decision Making Patient presented to the ER with lower abdominal pain, buttock pain and leg pain. His CT scan showed severe peripheral vascular disease with concern for complete occlusion which could be acute or chronic. On previous CTs he had similar appearance. I was unable to assess pulses on his feet but his feet are warm and he has cap refill [place] less concerned about an ischemic leg. We did order labs including a lactic acid that was not elevated making ischemia less likely. I did consult vascular surgery and while waiting for them to call back the patient decided he wanted to leave AGAINST MEDICAL ADVICE. He understood that by leaving that he could be threatening the loss of limb or even his life and understood that by leaving we could not help diagnose and treat this. He did have a urinary tract infection and I will treat with antibiotics. Recommended aspirin and I did give him the information for the vascular surgeon outpatient. Recommended calling [facility]. Patient also educated about smoking cessation. He was educated that at any point he could return the emergency department to resume his care and that he should return with any changing or worsening symptoms. He verbalized understanding of these instructions and all his questions were answered. - Differential Diagnosis ischemic leg, UTI, PVD Critical care attestation.: If time is entered above; I have spent that time in minutes in the direct care of this critically ill patient, excluding procedure time. ED Disposition Clinical Impression: PVD (peripheral vascular disease), Medical non-compliance UTI (urinary tract infection) Qualifiers: Urinary tract infection type: acute cystitis Hematuria presence: with hematuria Qualified Code(s): N30.01 - Acute cystitis with hematuria Disposition: DC-07 LEFT AGAINST MED ADVICE Is pt being admited?: No Condition: Undetermined Instructions: Peripheral Vascular Disorders (ED) Prescriptions: Ciprofloxacin HCl [Ciprofloxacin TAB] 500 mg PO Q12HR #20 tab Referrals: PRIMARY CARE, [Referring] - 3-5 Days CLARITZA CHILDS MD [Staff Physician] - 3-5 Days [facility] [Provider Group] - 3-5 Days Forms: AMA Form Time of Disposition: 11:35
[2020-03-16 08:34] LABS: Basophils # (Auto) 0.1 K/mm3 (0.0-0.1); Eosinophils # (Auto) 0.2 K/mm3 (0.0-0.4); Eosinophils % (Auto) 2.9 % (0.0-4.3); Hematocrit 43.3 % (35.5-45.6); Hemoglobin 14.7 gm/dl (11.8-15.2); Lymphocytes # (Auto) 2.9 K/mm3 (1.2-5.4); Lymphocytes % (Auto) 33.4 % (13.4-35.0); Mean Corpuscular HGB Conc 34 % (32-34); Mean Corpuscular Volume 89 fl (84-94); Monocytes # (Auto) 0.6 K/mm3 (0.0-0.8); Monocytes % (Auto) 7.5 % (0.0-7.3); Platelet Count 200 K/mm3 (140-440); Red Blood Count 4.88 M/mm3 (3.65-5.03); Red Cell Distribution Width 13.6 % (13.2-15.2)
--- NOTE | 2020-03-16 08:43 | Cat Scan Report ---
CT ABDOMEN AND PELVIS WITH CONTRAST HISTORY: MAIN. Severe left flank pain for the last 3 months COMPARISON: None. TECHNIQUE: CT images of the abdomen and pelvis were obtained following administration of intravenous contrast. All CT scans at this location are performed using CT dose reduction for ALARA by means of automated exposure control. CONTRAST: 100 ml of intravenous contrast administered. FINDINGS: Lungs/bones: There is mild bibasilar interstitial prominence with no consolidation or effusion. Dege nerative changes are present throughout the spine with a small well-defined lucent lesion at L3 and o therwise no acute osseous abnormality. Abdomen/pelvis: The liver is mildly enlarged with no focal mass identified. The gallbladder, spleen, pancreas, kidneys, and proximal GI tract appear unremarkable. There is mild bilateral adrenal thicke taryn. Moderate atherosclerotic disease is present throughout the abdominal aorta and branch vessels. There is occlusion of the left common iliac artery extending into the external iliac artery. There is recon stitution of blood flow at the PROGRAM LEAD. There is also occlusion of blood flow in the right external iliac artery extending to the PROGRAM LEAD where there is reconstitution of flow. The right internal iliac artery i s patent. The left internal iliac artery is initially occluded at its origin but is then reconstitute d distally via collateral vessels. The prostate is enlarged (nearly 7 cm in size) and indents the bladder base. No pelvic free fluid. No acute colonic abnormality identified. IMPRESSION: 1. Vascular findings as outlined above involving the bilateral iliac arteries where there are segment s of occlusion. 2. Additional incidental findings as above. COMMUNICATION: Time of Communication (PROJECT SURVEYOR/CDT): 7:37 AM Licensed Practitioner Receiving Report: CONRADO Clements Signer Name: Leonardo Fontanez MD Signed: 03/16/2020 8:39 AM Workstation Name: [id number]
[2020-03-16 10:56] LABS: INR 0.9 (0.87-1.13)
[2020-03-16 10:57] LABS: Partial Thromboplastin Time 29.1 Sec. (24.2-36.6)
== END 2020-03-16 11:45 | disposition left against medical advice (07) ==
LOC: ED 06:16
DX: I73.9 Peripheral vascular disease, unspecified (principal); N39.0 Urinary tract infection, site not specified; I10 Essential (primary) hypertension; E11.9 Type 2 diabetes mellitus without complications; M19.91 Primary osteoarthritis, unspecified site; F17.200 Nicotine dependence, unspecified, uncomplicated; R10.9 Unspecified abdominal pain; Z91.19 Patient's noncompliance with other medical treatment and regimen; Z98.890 Other specified postprocedural states; Z79.899 Other long term (current) drug therapy; Z79.1 Long term (current) use of non-steroidal anti-inflammatories (NSAID); Z79.2 Long term (current) use of antibiotics
CPT/HCPCS: 36415; 74177; 80053; 81001; 82140; 82550; 85025; 85610; 85730; 96365; 96375; 99284; J0696; J1885; J7040; Q9967

== ENCOUNTER 2020-04-12 06:31 | Inpatient (IN) | payer MEDICARE ==
[2020-04-12 07:35] LABS: Hematocrit 39.1 % (35.5-45.6); Hemoglobin 13.3 gm/dl (11.8-15.2); Mean Corpuscular HGB Conc 34 % (32-34); Mean Corpuscular Volume 88 fl (84-94); Platelet Count 201 K/mm3 (140-440); Red Blood Count 4.47 M/mm3 (3.65-5.03); Red Cell Distribution Width 14.1 % (13.2-15.2)
[2020-04-12 07:51] LABS: BUN/Creatinine Ratio 14; Blood Urea Nitrogen 11 mg/dL (9-20); Calcium 8.6 mg/dL (8.4-10.2); Hemolysis Index 55
[2020-04-12 07:53] LABS: Partial Thromboplastin Time 28.3 Sec. (24.2-36.6)
[2020-04-12] MEDS ORDERED: SODIUM CHLORIDE 0.9% 500 ML 500 ML IV SCH (08:00)
[2020-04-12 08:24] LABS: INR 0.99 (0.87-1.13)
--- NOTE | 2020-04-12 08:53 | XRay Report ---
CHEST - 1 VIEW 0830 hours INDICATION: Pneumonia with SOB COMPARISON: 04/02/2020 FINDINGS: Support devices: None Heart: Within normal limits Lungs/pleura: Bibasilar opacities have resolved since the previous exam. The interstitium appears pr ominent on today's exam which could represent congestive changes or interstitial infiltrates. No cons olidation, pleural effusion or pneumothorax. Additional findings: None. IMPRESSION: Prominent interstitium. Venous congestion versus interstitial infiltrates. Signer Name: Ish Jennings Jr, MD Signed: 04/12/2020 8:49 AM Workstation Name: [id number]
--- NOTE | 2020-04-12 11:58 | Event Note ---
Date: 04/12/20 Patient recently admitted with a diagnosis of pneumonia and discharged on p.o. Levaquin. Now here for endovascular intervention of his iliofemoral occlusive disease. He presents today with complaints of shortness of breath, initially requiring 3 liters of nasal cannula, however he has progressed to requiring BiPap and waxing and waning mental status. His peripheral vascular disease is chronic and he has no wounds that require immediate intervention. I will cancel his case and call the hospitalist for admission.
--- NOTE | 2020-04-12 13:26 | History and Physical Report ---
History of Present Illness Date of examination: 04/12/20 Date of admission: 04/12/20 12:19 Chief complaint: Shortness of breath. History of present illness: 59-year-old male with PMH of diabetes mellitus type 2, OA and hypertension who presented to vascular surgery for endovascular intervention of his iliofemoral occlusive disease. Prior to the procedure, the patient complained of shortness of breath, initially requiring 3 liters of nasal cannula which progressively worsened requiring BiPap. The patient was also reportedly noted to have and waxing and waning mental status. His peripheral vascular disease is chronic and he has no wounds that require immediate intervention. Patient recently admitted with a diagnosis of pneumonia and discharged on p.o. Levaquin. COVID 19 was ruled out on the previous admission. The patient reports lower extremity swell ing and orthopnea as well. Patient denies any fever or chills. No chest pain no cough. Past History Past Medical History: diabetes, hypertension Past Surgical History: No surgical history Social history: no significant social history Family history: no significant family history Medications and Allergies Allergies Allergy/AdvReac Type Severity Reaction Status Date / Time No Known Allergies Allergy Verified 11/02/19 20:34 Home Medications Medication Instructions Recorded Confirmed Last Taken Type HYDROcodone/APAP 5-325 [[place] 1 - 2 each PO Q6HR PRN #14 tablet 09/30/18 04/12/20 Unknown Rx 5-325 mg TAB] Metoprolol Succinate [Toprol Xl] 100 mg PO QDAY 09/30/18 04/12/20 04/11/20 Hist ory glipiZIDE XL [Glucotrol Xl] 10 mg PO QAM 09/30/18 04/12/20 04/11/20 History Albuterol Mdi (or & Nicu Only) 2 puff IH Q4HRT PRN #1 inha 04/03/20 04/12/20 04/12/20 Rx [ProAir HFA Inhaler] levoFLOXacin [Levaquin] 750 mg PO QDAY #5 tablet 04/03/20 04/12/20 04/11/20 Rx Gabapentin [Neurontin] 300 mg PO BID 04/12/20 04/12/20 04/11/20 History Rosuvastatin Calcium [Crestor] 10 mg PO DAILY 04/12/20 04/12/20 04/11/20 History Sulfamethoxazole/Trimethoprim 1 tab PO BID 04/12/20 04/12/20 04/11/20 History [Sulfamethoxazole-Tmp Ds Tablet] Tamsulosin [Flomax] 0.4 mg PO DAILY 04/12/20 04/12/20 04/11/20 History Active Meds: Active Medications Sodium Chloride (Nacl 0.9% 500 Ml) 500 mls @ 50 mls/hr IV DIRECT LADY Last Admin: 04/12/20 08:20 Dose: 50 mls/hr Documented by: Review of Systems All systems: negative Exam - Constitutional Vitals: Temp Pulse Resp BP Pulse Ox 98.6 F 83 20 179/80 98 04/12/20 07:30 04/12/20 07:30 04/12/20 07:30 04/12/20 07:30 04/12/20 07:30 General appearance: Present: no acute distress, well-nourished - EENT Eyes: Present: PERRL ENT: hearing intact, clear oral mucosa - Neck Neck: Present: supple, normal ROM - Respiratory Respiratory effort: normal Respiratory: bilateral: diminished, rhonchi - Cardiovascular Heart Sounds: Present: S1 & S2. Absent: rub, click - Extremities Extremities: pulses symmetrical, No edema Peripheral Pulses: within normal limits - Abdominal General gastrointestinal: Present: soft, non-tender, non-distended, normal bowel sounds Male genitourinary: Present: normal - Integumentary Integumentary: Present: clear, warm, dry - Musculoskeletal Musculoskeletal: gait normal, strength equal bilaterally - Psychiatric Psychiatric: appropriate mood/affect, intact judgment & insight - Neurologic Neurologic: CNII-XII intact, moves all extremities Results - Labs CBC & Chem 7: 04/12/20 07:30 04/12/20 07:30 Labs: Laboratory Last Values WBC 10.3 K/mm3 (4.5-11.0) 04/12/20 07:30 RBC 4.47 M/mm3 (3.65-5.03) 04/12/20 07:30 Hgb 13.3 gm/dl (11.8-15.2) 04/12/20 07:30 Hct 39.1 % (35.5-45.6) 04/12/20 07:30 MCV 88 fl (84-94) 04/12/20 07:30 MCH 30 pg (28-32) 04/12/20 07:30 MCHC 34 % (32-34) 04/12/20 07:30 RDW 14.1 % (13.2-15.2) 04/12/20 07:30 Plt Count 201 K/mm3 (140-440) 04/12/20 07:30 PT 13.3 Sec. (12.2-14.9) 04/12/20 07:30 INR 0.99 (0.87-1.13) 04/12/20 07:30 APTT 28.3 Sec. (24.2-36.6) 04/12/20 07:30 Sodium 135 mmol/L (137-145) L 04/12/20 07:30 Potassium 3.9 mmol/L (3.6-5.0) 04/12/20 07:30 Chloride 98.5 mmol/L (98-107) 04/12/20 07:30 Carbon Dioxide 25 mmol/L (22-30) 04/12/20 07:30 Anion Gap 15 mmol/L 04/12/20 07:30 BUN 11 mg/dL (9-20) 04/12/20 07:30 Creatinine 0.8 mg/dL (0.8-1.5) 04/12/20 07:30 Estimated GFR > 60 ml/min 04/12/20 07:30 BUN/Creatinine Ratio 14 % 04/12/20 07:30 Glucose 246 mg/dL (75-100) H 04/12/20 07:30 Calcium 8.6 mg/dL (8.4-10.2) 04/12/20 07:30 Mendoza/IV: Voiding Method Urinal IV Catheter Type [Left Peripheral IV Antecubital] Assessment and Plan Assessment and plan: Acute hypoxic respiratory failure. Patient will be maintained on BiPAP as clinically indicated. Etiology likely secondary to CHF exacerbation. Acute CHF exacerbation. Etiology of systolic versus diastolic to be determined with echocardiogram. Patient will be placed on the CHF pathway and started on IV diuresis. Diabetes mellitus type 2. Continue Accu-Cheks and sliding scale insulin. Hypertension. Resume antihypertensive medications.
[2020-04-12] MEDS ORDERED: DEXTROSE 50% IN WATER (25GM) 50 ML SYRINGE IV PRN (13:29)
[2020-04-12] MEDS ORDERED: ONDANSETRON 4 MG/2 ML INJ IV PRN (13:29)
[2020-04-12] MEDS ORDERED: ACETAMINOPHEN 325 MG TAB PO PRN (13:29)
[2020-04-12 13:44] VITALS: BP 185/109
[2020-04-12] MEDS ORDERED: INSULIN REGULAR, HUMAN 100 UNITS/1 ML SUB-Q SCH (16:30)
[2020-04-12] MEDS ORDERED: ALPRAZolam 0.25 MG TAB PO ONE (16:40)
[2020-04-13] MEDS ORDERED: FUROSEMIDE 40 MG/4 ML INJ IV SCH (10:00)
[2020-04-13] MEDS ORDERED: LISINOPRIL 5 MG TAB PO SCH (10:00)
[2020-04-13] MEDS ORDERED: ENOXAPARIN 40 MG/0.4 ML INJ SUB-Q SCH (10:00)
== END 2020-04-12 16:27 | disposition left against medical advice (07) | DRG 291 ==
LOC: CATHLABREC 06:31 → 4A 12:19 → 3A 13:10
PROVIDERS: ADMIT Hospitalist; ATTEND Hospitalist
DX: I11.0 Hypertensive heart disease with heart failure (principal); J96.01 Acute respiratory failure with hypoxia; I50.9 Heart failure, unspecified; E11.9 Type 2 diabetes mellitus without complications; M19.90 Unspecified osteoarthritis, unspecified site; I73.89 Other specified peripheral vascular diseases; Z79.4 Long term (current) use of insulin; Z87.01 Personal history of pneumonia (recurrent)
CPT/HCPCS: 36415; 71045; 80048; 82962; 85027; 85610; 85730; G0378; J7040

== ENCOUNTER 2020-12-19 15:29 | Emergency (ER) | payer MEDICARE ==
--- NOTE | 2020-12-19 16:03 | Event Note ---
ED Screening Note ED Screening Note: states his PCP retired states he has has right sided testicular pain and swelling that began three days ago +dysuria no penile discharge states he has problems with impotence over the last month no fever no n/v/d PMHx BPH, HTN, DM, CHF no allergies to meds This initial assessment/diagnostic orders/clinical plan/treatment(s) is/are subject to change based on patients health status, clinical progression and re- assessment by fellow clinical providers in the ED. Further treatment and workup at subsequent clinical providers discretion. Patient/guardian urged not to elope from the ED as their condition may be serious if not clinically assessed and managed. Initial orders include: labs, UA, US
[2020-12-19 16:51] LABS: Basophils # (Auto) 0.1 K/mm3 (0.0-0.1); Basophils % (Auto) 0.8 % (0.0-1.8); Eosinophils # (Auto) 0.2 K/mm3 (0.0-0.4); Eosinophils % (Auto) 2.4 % (0.0-4.3); Hematocrit 42.6 % (35.5-45.6); Hemoglobin 14.8 gm/dl (11.8-15.2); Lymphocytes # (Auto) 2.6 K/mm3 (1.2-5.4); Lymphocytes % (Auto) 26.1 % (13.4-35.0); Mean Corpuscular HGB Conc 35 % (32-34); Mean Corpuscular Volume 88 fl (84-94); Monocytes # (Auto) 0.8 K/mm3 (0.0-0.8); Platelet Count 195 K/mm3 (140-440); Red Blood Count 4.85 M/mm3 (3.65-5.03); Red Cell Distribution Width 14.1 % (13.2-15.2)
[2020-12-19 17:10] LABS: Bacteria,Urine 4+ /HPF (Negative); Bilirubin,Urine NEG (Negative); Blood,Urine SM (Negative); Color,Urine Amber (Yellow); Mucus,Urine 3+ /HPF
[2020-12-19 17:13] LABS: WBC,Urine > 182.0 /HPF (0.0-6.0)
[2020-12-19 17:15] LABS: Alanine Aminotransferase 12 units/L (7-56); Albumin 3.9 g/dL (3.9-5); BUN/Creatinine Ratio 18; Blood Urea Nitrogen 14 mg/dL (9-20); Calcium 9.1 mg/dL (8.4-10.2); Hemolysis Index 14
--- NOTE | 2020-12-19 18:23 | Ultrasound Report ---
ULTRASOUND SCROTUM INDICATION: right sided testicular pain and swelling. COMPARISON None available. FINDINGS: RIGHT TESTICLE: 3.0 x 2.1 x 2.7 cm. There is generalized heterogeneity. Increased color flow. No jaylen d or cystic lesions. RIGHT EPIDIDYMIS: Edematous with increased color flow. 2 cysts are seen in the right epididymis measu ring up to 1.5 cm. LEFT TESTICLE: 3.3 x 1.8 x 2.2 cm. Normal echogenicity. Normal color flow. No solid or cystic lesions . LEFT EPIDIDYMIS: An epididymal cyst measures up to 3 mm. No other significant abnormality. HYDROCELE: Small right hydrocele. VARICOCELE: None seen. ADDITIONAL FINDINGS: None. IMPRESSION: Suspected right epididymoorchitis. Close clinical follow-up to resolution is recommended. Signer Name: Mark Doe MD Signed: 12/19/2020 6:19 PM Workstation Name: [id number]
[2020-12-19] MEDS ORDERED: IBUPROFEN 800 MG TAB PO ONE (21:18)
--- NOTE | 2020-12-19 21:19 | Emergency Department Report ---
ED Male HPI - General Chief complaint: Urogenital-Male Stated complaint: TESTICLE ENLARGED Time Seen by Provider: 12/19/20 16:00 Source: patient Mode of arrival: Ambulatory Limitations: No Limitations - History of Present Illness Initial comments: 60-year-old male, history of hypertension, diabetes, CHF, BPH, presents to ED with right testicular pain x3 days. Patient denies any fever, abdominal pain, nausea or vomiting. Patient reports swelling and pain with palpation or movement. Patient denies any history of this type of testicular pain in the past. MD Complaint: testicle pain, testicle swelling -: days(s) (3) Location: right testicle Radiation: none Severity: severe Quality: aching Consistency: constant Improves with: none Worsens with: palpation, movement swelling. denies: discharge, dysuria, fever, nausea/vomiting - Related Data Home Medications Medication Instructions Recorded Confirmed Last Taken Metoprolol Succinate [Toprol Xl] 100 mg PO QDAY 09/30/18 04/12/20 04/11/20 glipiZIDE XL [Glucotrol Xl] 10 mg PO QAM 09/30/18 04/12/20 04/11/20 Gabapentin [Neurontin] 300 mg PO BID 04/12/20 04/12/20 04/11/20 Rosuvastatin Calcium [Crestor] 10 mg PO DAILY 04/12/20 04/12/20 04/11/20 Sulfamethoxazole/Trimethoprim 1 tab PO BID 04/12/20 04/12/20 04/11/20 [Sulfamethoxazole-Tmp Ds Tablet] Tamsulosin [Flomax] 0.4 mg PO DAILY 04/12/20 04/12/20 04/11/20 Previous Rx's Medication Instructions Recorded Last Taken Type HYDROcodone/APAP 5-325 [[place] 1 - 2 each PO Q6HR PRN #14 tablet 09/30/18 Unknown Rx 5-325 mg TAB] Albuterol Mdi (or & Nicu Only) 2 puff IH Q4HRT PRN #1 inha 04/03/20 04/12/20 Rx [ProAir HFA Inhaler] levoFLOXacin [Levaquin] 750 mg PO QDAY #5 tablet 04/03/20 04/11/20 Rx HYDROcodone/APAP 5-325 [[place] 1 each PO Q6HR PRN #7 tablet 12/19/20 Unknown Rx 5/325] Naproxen [Naprosyn] 500 mg PO BID #20 tablet 12/19/20 Unknown Rx levoFLOXacin [Levaquin TAB] 500 mg PO QDAY 10 Days #10 tablet 12/19/20 Unknown Rx Allergies Allergy/AdvReac Type Severity Reaction Status Date / Time No Known Allergies Allergy Verified 12/19/20 15:55 ED Review of Systems ROS: Stated complaint: TESTICLE ENLARGED Other details as noted in HPI Comment: All other systems reviewed and negative Constitutional: denies: chills, fever Gastrointestinal: denies: abdominal pain, nausea, vomiting Genitourinary: testicular pain. denies: dysuria, frequency, discharge ED Past Medical Hx - Past Medical History Hx Hypertension: Yes Hx Heart Attack/AMI: No Hx Congestive Heart Failure: No Hx Diabetes: Yes Hx Arthritis: Yes Hx Asthma: No Hx COPD: No Hx HIV: No Additional medical history: Neuropathy, Chronic Pain, bph, Vascular disease - Surgical History Additional Surgical History: Right shoulder - Social History Smoking Status: Current Every Day Smoker - Medications Home Medications: Home Medications Medication Instructions Recorded Confirmed Last Taken Type HYDROcodone/APAP 5-325 [[place] 1 - 2 each PO Q6HR PRN #14 tablet 09/30/18 04/12/20 Unknown Rx 5-325 mg TAB] Metoprolol Succinate [Toprol Xl] 100 mg PO QDAY 09/30/18 04/12/20 04/11/20 History glipiZIDE XL [Glucotrol Xl] 10 mg PO QAM 09/30/18 04/12/20 04/11/20 History Albuterol Mdi (or & Nicu Only) 2 puff IH Q4HRT PRN #1 inha 04/03/20 04/12/20 04/12/20 Rx [ProAir HFA Inhaler] levoFLOXacin [Levaquin] 750 mg PO QDAY #5 tablet 04/03/20 04/12/20 04/11/20 Rx Gabapentin [Neurontin] 300 mg PO BID 04/12/20 04/12/20 04/11/20 History Rosuvastatin Calcium [Crestor] 10 mg PO DAILY 04/12/20 04/12/20 04/11/20 History Sulfamethoxazole/Trimethoprim 1 tab PO BID 04/12/20 04/12/20 04/11/20 History [Sulfamethoxazole-Tmp Ds Tablet] Tamsulosin [Flomax] 0.4 mg PO DAILY 04/12/20 04/12/20 04/11/20 History HYDROcodone/APAP 5-325 [[place] 1 each PO Q6HR PRN #7 tablet 12/19/20 Unknown Rx 5/325] Naproxen [Naprosyn] 500 mg PO BID #20 tablet 12/19/20 Unknown Rx levoFLOXacin [Levaquin TAB] 500 mg PO QDAY 10 Days #10 tablet 12/19/20 Unknown Rx ED Physical Exam - General Limitations: No Limitations General appearance: alert, in no apparent distress - Head Head exam: Present: atraumatic, normocephalic - Eye Eye exam: Present: normal appearance, EOMI - ENT ENT exam: Present: mucous membranes moist - Neck Neck exam: Present: normal inspection - Respiratory Respiratory exam: Present: normal lung sounds bilaterally. Absent: respiratory distress - Cardiovascular Cardiovascular Exam: Present: regular rate, normal rhythm - GI/Abdominal GI/Abdominal exam: Present: soft. Absent: distended, tenderness - exam: Present: testicular tenderness (Right-sided), scrotal swelling (Mild, right-sided), vertical testicular lie External exam: Absent: erythema, ecchymosis - Extremities Exam Extremities exam: Present: normal inspection - Neurological Exam Neurological exam: Present: alert, oriented X3 - Psychiatric Psychiatric exam: Present: normal affect, normal mood - Skin Skin exam: Present: warm, dry, intact, normal color ED Course Vital Signs 12/19/20 12/19/20 12/19/20 15:59 21:55 21:58 Temperature 98.8 F Pulse Rate 80 74 Respiratory 20 18 18 Rate Blood Pressure 180/85 Blood Pressure 176/98 [Left] O2 Sat by Pulse 100 99 Oximetry ED Medical Decision Making - Lab Data Result diagrams: 12/19/20 16:18 12/19/20 16:18 - Radiology Data Radiology results: report reviewed, image reviewed - Medical Decision Making 60-year-old male presents to ED with 3-day history of right testicular pain. UA shows evidence of UTI. Ultrasound reveals right-sided epididymoorchitis. Patient is afebrile. Remainder of vitals are normal except for elevated blood pressure. Labs are unremarkable. Patient will be discharged at this time with prescription for Levaquin and pain meds. Outpatient follow-up with urology as advised. Return precautions given. - Differential Diagnosis Epididymitis, malignancy, testicular torsion Critical care attestation.: If time is entered above; I have spent that time in minutes in the direct care of this critically ill patient, excluding procedure time. ED Disposition Clinical Impression: Epididymo-orchitis, acute Disposition: TO HOME OR SELFCARE Is pt being admited?: No Condition: Stable Instructions: Orchitis, Epididymitis, Epididymitis (ED) Prescriptions: levoFLOXacin [Levaquin TAB] 500 mg PO QDAY 10 Days #10 tablet Naproxen [Naprosyn] 500 mg PO BID #20 tablet HYDROcodone/APAP 5-325 [[place] 5/325] 1 each PO Q6HR PRN #7 tablet PRN Reason: Pain Referrals: PRIMARY CAREMD [Primary Care Provider] - 3-5 Days SURY MCCLENDON MD [Staff Physician] - 3-5 Days Forms: STI Treatment and Prevention Time of Disposition: 21:20
[2020-12-19 22:01] VITALS: BP 176/98
== END 2020-12-19 21:59 | disposition home or self-care (01) ==
LOC: ED 15:29
DX: N45.3 Epididymo-orchitis (principal); I10 Essential (primary) hypertension; E11.9 Type 2 diabetes mellitus without complications; M19.90 Unspecified osteoarthritis, unspecified site; F17.200 Nicotine dependence, unspecified, uncomplicated; Z79.899 Other long term (current) drug therapy
CPT/HCPCS: 36415; 80053; 81001; 83880; 85025; 93975

== ENCOUNTER 2022-05-29 21:21 | Inpatient (IN) | payer MEDICARE ==
--- NOTE | 2022-05-29 22:58 | Emergency Department Report ---
ED Extremity Problem HPI - General Chief complaint: Extremity Injury, Lower Stated complaint: LEG PAIN Time Seen by Provider: 05/29/22 22:34 Source: patient, EMS Mode of arrival: Stretcher Limitations: No Limitations - History of Present Illness Initial comments: 62-year-old male brought in by EMS with bilateral chronic leg ulcer with family concern for worsening lower leg wound. Patient denies any fever or chills. No other modifying or associated factors reported. - Related Data Home Medications Medication Instructions Recorded Confirmed Last Taken Metoprolol Succinate [Toprol Xl] 100 mg PO QDAY 09/30/18 04/12/20 04/11/20 glipiZIDE XL [Glucotrol Xl] 10 mg PO QAM 09/30/18 04/12/20 04/11/20 Gabapentin [Neurontin] 300 mg PO BID 04/12/20 04/12/20 04/11/20 Rosuvastatin Calcium [Crestor] 10 mg PO DAILY 04/12/20 04/12/20 04/11/20 Sulfamethoxazole/Trimethoprim 1 tab PO BID 04/12/20 04/12/20 04/11/20 [Sulfamethoxazole-Tmp Ds Tablet] Tamsulosin [Flomax] 0.4 mg PO DAILY 04/12/20 04/12/20 04/11/20 Previous Rx's Medication Instructions Recorded Last Taken Type HYDROcodone/APAP 5-325 [[place] 1 - 2 each PO Q6HR PRN #14 tablet 09/30/18 Unknown Rx 5-325 mg TAB] Albuterol Mdi (or & Nicu Only) 2 puff IH Q4HRT PRN #1 inha 04/03/20 04/12/20 Rx [ProAir HFA Inhaler] levoFLOXacin [Levaquin] 750 mg PO QDAY #5 tablet 04/03/20 04/11/20 Rx HYDROcodone/APAP 5-325 [[place] 1 each PO Q6HR PRN #7 tablet 12/19/20 Unknown Rx 5/325] Naproxen [Naprosyn] 500 mg PO BID #20 tablet 12/19/20 Unknown Rx levoFLOXacin [Levaquin TAB] 500 mg PO QDAY 10 Days #10 tablet 12/19/20 Unknown Rx Allergies Allergy/AdvReac Type Severity Reaction Status Date / Time No Known Allergies Allergy Verified 12/19/20 15:55 ED Review of Systems ROS: Stated complaint: LEG PAIN Other details as noted in HPI Comment: All other systems reviewed and negative Skin: other (several bilateral leg ulcer/chronic wound in different stages-- with venous stasis) ED Past Medical Hx - Past Medical History Hx Hypertension: Yes Hx Heart Attack/AMI: No Hx Congestive Heart Failure: No Hx Diabetes: Yes Hx Arthritis: Yes Hx Asthma: No Hx COPD: No Hx HIV: No Additional medical history: Neuropathy, Chronic Pain, bph, Vascular disease - Surgical History Additional Surgical History: Right shoulder - Social History Smoking Status: Current Every Day Smoker - Medications Home Medications: Home Medications Medication Instructions Recorded Confirmed Last Taken Type HYDROcodone/APAP 5-325 [[place] 1 - 2 each PO Q6HR PRN #14 tablet 09/30/18 04/12/20 Unknown Rx 5-325 mg TAB] Metoprolol Succinate [Toprol Xl] 100 mg PO QDAY 09/30/18 04/12/20 04/11/20 History glipiZIDE XL [Glucotrol Xl] 10 mg PO QAM 09/30/18 04/12/20 04/11/20 History Albuterol Mdi (or & Nicu Only) 2 puff IH Q4HRT PRN #1 inha 04/03/20 04/12/20 04/12/20 Rx [ProAir HFA Inhaler] levoFLOXacin [Levaquin] 750 mg PO QDAY #5 tablet 04/03/20 04/12/20 04/11/20 Rx Gabapentin [Neurontin] 300 mg PO BID 04/12/20 04/12/20 04/11/20 History Rosuvastatin Calcium [Crestor] 10 mg PO DAILY 04/12/20 04/12/20 04/11/20 History Sulfamethoxazole/Trimethoprim 1 tab PO BID 04/12/20 04/12/20 04/11/20 History [Sulfamethoxazole-Tmp Ds Tablet] Tamsulosin [Flomax] 0.4 mg PO DAILY 04/12/20 04/12/20 04/11/20 History HYDROcodone/APAP 5-325 [[place] 1 each PO Q6HR PRN #7 tablet 12/19/20 Unknown Rx 5/325] Naproxen [Naprosyn] 500 mg PO BID #20 tablet 12/19/20 Unknown Rx levoFLOXacin [Levaquin TAB] 500 mg PO QDAY 10 Days #10 tablet 12/19/20 Unknown Rx ED Physical Exam - General Limitations: No Limitations General appearance: alert, in no apparent distress - Head Head exam: Present: normal inspection - ENT ENT exam: Present: normal exam, normal orophraynx, mucous membranes dry - Neck Neck exam: Absent: tenderness - Respiratory Respiratory exam: Present: normal lung sounds bilaterally. Absent: respiratory distress, accessory muscle use - Cardiovascular Cardiovascular Exam: Present: regular rate, normal rhythm, normal heart sounds - GI/Abdominal GI/Abdominal exam: Present: soft, normal bowel sounds. Absent: distended, tenderness - Extremities Exam Extremities exam: Present: pedal edema, other (several bilateral leg ulcer/chronic wound in different stages-- with venous stasis). Absent: normal capillary refill (unable to appreciate dorsalis pedis artherial pulse) - Back Exam Back exam: Absent: tenderness - Neurological Exam Neurological exam: Present: alert, oriented X3 - Psychiatric Psychiatric exam: Present: normal affect - Skin Skin exam: Present: warm, other (several bilateral leg ulcer/chronic wound in different stages-- with venous stasis) ED Medical Decision Making - Lab Data Result diagrams: 05/29/22 23:01 05/29/22 23:01 - Medical Decision Making here with concern chronic leg ulcer and noted with several bilateral leg ulcer/chronic wound in different stages-- with venous stasis--will go ahead and order routine labs including CBC, CMP, UA and doppler -- Labs reviewed and noted with elevated lactic acid and t-bili-- this could be as a result of this patient bilateral lower leg cellulitis and different stage ulcer-- will go ahead and start aggressive ivf ns 1L x 1 repeated and antibiotics Cefeprime-- and considering admission -- Unable to appreciate dorsalis pedis-- Vascular surgeon will be consulted- Critical care attestation.: If time is entered above; I have spent that time in minutes in the direct care of this critically ill patient, excluding procedure time. ED Disposition Clinical Impression: Chronic venous stasis dermatitis Chronic ulcer of leg Qualifiers: Laterality: unspecified laterality Non-pressure ulcer stage: unspecified non- pressure ulcer stage Qualified Code(s): L97.909 - Non-pressure chronic ulcer of unspecified part of unspecified lower leg with unspecified severity Cellulitis Qualifiers: Site of cellulitis: unspecified site Qualified Code(s): L03.90 - Cellulitis, unspecified Disposition: 09 ADMITTED INPATIENT Is pt being admited?: Yes Does the pt Need Aspirin: No Condition: Stable Referrals: DAVY BELTRE MD [Primary Care Provider] - 3-5 Days Time of Disposition: 02:48
[2022-05-29 23:23] LABS: Basophils % (Auto) 0.2 % (0.0-1.8); Hematocrit 44.1 % (35.5-45.6); Hemoglobin 14.1 gm/dl (11.8-15.2); Lymphocytes # (Auto) 0.4 K/mm3 (1.2-5.4); Lymphocytes % (Auto) 5.4 % (13.4-35.0); Mean Corpuscular HGB Conc 32 % (32-34); Mean Corpuscular Volume 91 fl (84-94); Monocytes % (Auto) 12.1 % (0.0-7.3); Platelet Count 157 K/mm3 (140-440); Red Blood Count 4.84 M/mm3 (3.65-5.03); Red Cell Distribution Width 16.1 % (13.2-15.2)
[2022-05-29 23:39] LABS: Alanine Aminotransferase 40 units/L (7-56); Albumin 3.4 g/dL (3.9-5); BUN/Creatinine Ratio 21; Blood Urea Nitrogen 19 mg/dL (9-20); Calcium 8.6 mg/dL (8.4-10.2); Hemolysis Index 20
[2022-05-29 23:45] LABS: INR 3.24 (0.87-1.13)
[2022-05-29 23:46] LABS: Partial Thromboplastin Time 44.3 Sec. (24.2-36.6)
[2022-05-30] MEDS ORDERED: SODIUM CHLORIDE 0.9% 1000 ML 1,000 ML IV ONE ×2 (02:09→02:15)
[2022-05-30] MEDS ORDERED: CEFEPIME/NS 2 GM/100 ML 2 GM/100 ML BAG IV ONE ×2 (02:15→04:50)
[2022-05-30] MEDS ORDERED: ONDANSETRON 4 MG/2 ML INJ IV PRN ×2 (04:12→05:00)
[2022-05-30] MEDS ORDERED: MORPHINE 2 MG/1 ML INJ IV PRN ×2 (04:12→05:00)
[2022-05-30] MEDS ORDERED: ACETAMINOPHEN 325 MG TAB PO PRN ×2 (04:12→05:00)
[2022-05-30] MEDS ORDERED: ALBUTEROL 2.5 MG/3 ML NEBU IH PRN (05:00)
[2022-05-30] MEDS ORDERED: MORPHINE 4 MG/1 ML INJ IV PRN (05:00)
--- NOTE | 2022-05-30 05:26 | History and Physical Report ---
History of Present Illness Date of examination: 05/30/22 Date of admission: 05/30/22 04:12 Chief complaint: Bilateral lower extremity cellulitis History of present illness: 62-year-old male with history of hypertension, diabetes, arthritis, neuropathy vascular disease was brought to the emergency room because of bilateral chronic leg ulcer with family concern for worsening lower leg wound. Patient denies any fever or chills. No other modifying or associated factors reported. In the emergency room patient is found to have lactic acid of 3.70. She will admit the patient put the patient on vancomycin and Zosyn and consult wound care Past History Past Medical History: arthritis, diabetes, hypertension, other (Neuropathy, Chronic Pain, bph, Vascular disease) Past Surgical History: Other (Right shoulder surgery) Social history: smoking Family history: hypertension Medications and Allergies Allergies Allergy/AdvReac Type Severity Reaction Status Date / Time No Known Allergies Allergy Verified 12/19/20 15:55 Home Medications Medication Instructions Recorded Confirmed Last Taken Type HYDROcodone/APAP 5-325 [[place] 1 - 2 each PO Q6HR PRN #14 tablet 09/30/18 04/12/20 Unknown Rx 5-325 mg TAB] Metoprolol Succinate [Toprol Xl] 100 mg PO QDAY 09/30/18 04/12/20 04/11/20 History glipiZIDE XL [Glucotrol Xl] 10 mg PO QAM 09/30/18 04/12/20 04/11/20 History Albuterol Mdi (or & Nicu Only) 2 puff IH Q4HRT PRN #1 inha 04/03/20 04/12/20 04/12/20 Rx [ProAir HFA Inhaler] levoFLOXacin [Levaquin] 750 mg PO QDAY #5 tablet 04/03/20 04/12/20 04/11/20 Rx Gabapentin [Neurontin] 300 mg PO BID 04/12/20 04/12/20 04/11/20 History Rosuvastatin Calcium [Crestor] 10 mg PO DAILY 04/12/20 04/12/20 04/11/20 History Sulfamethoxazole/Trimethoprim 1 tab PO BID 04/12/20 04/12/20 04/11/20 History [Sulfamethoxazole-Tmp Ds Tablet] Tamsulosin [Flomax] 0.4 mg PO DAILY 04/12/20 04/12/20 04/11/20 History HYDROcodone/APAP 5-325 [[place] 1 each PO Q6HR PRN #7 tablet 12/19/20 Unknown Rx 5/325] Naproxen [Naprosyn] 500 mg PO BID #20 tablet 12/19/20 Unknown Rx levoFLOXacin [Levaquin TAB] 500 mg PO QDAY 10 Days #10 tablet 12/19/20 Unknown Rx Active Meds: Active Medications Acetaminophen (Acetaminophen 325 Mg Tab) 650 mg PO Q4H PRN PRN Reason: Pain MILD(1-3)/Fever >100.5/DUENAS Albuterol (Albuterol 2.5 Mg/3 Ml Nebu) 2.5 mg IH Q4HRT PRN PRN Reason: Shortness Of Breath Albuterol/Ipratropium (Ipratropium/Albuterol Sulfate 3 Ml Ampul.Neb) 1 ampul IH Q6HRT LADY Atorvastatin Calcium (Atorvastatin 20 Mg Tab) 20 mg PO QHS LADY Famotidine (Famotidine 20 Mg Tab) 20 mg PO BID LADY Gabapentin (Gabapentin 300 Mg Cap) 300 mg PO BID LADY Piperacillin Sod/Tazobactam Sod (Zosyn/Ns 4.5gm/100ml) 4.5 gm in 100 mls @ 200 mls/hr IV ONCE ONE; Protocol Stop: 05/30/22 10:29 Vancomycin HCl 2,000 mg/ (Sodium Chloride) 540 mls @ 250 mls/hr IV Q12H LADY Metoprolol Succinate (Metoprolol Succinate Xl 100 Mg Tab) 100 mg PO QDAY@0800 LADY Morphine Sulfate (Morphine 2 Mg/1 Ml Inj) 2 mg IV Q4H PRN PRN Reason: Pain, Moderate (4-6) Morphine Sulfate (Morphine 4 Mg/1 Ml Inj) 4 mg IV Q4H PRN PRN Reason: Pain , Severe (7-10) Ondansetron HCl (Ondansetron 4 Mg/2 Ml Inj) 4 mg IV Q8H PRN PRN Reason: Nausea And Vomiting Sodium Chloride (Sodium Chloride 0.9% 10 Ml Flush Syringe) 10 ml IV BID LADY Sodium Chloride (Sodium Chloride 0.9% 10 Ml Flush Syringe) 10 ml IV PRN PRN PRN Reason: LINE FLUSH Tamsulosin HCl (Tamsulosin 0.4 Mg Cap) 0.4 mg PO DAILY LADY Review of Systems All systems: negative Constitutional: other (several bilateral leg ulcer/chronic wound in different stages-- with venous stasis)) Exam - Constitutional Vitals: Temp Pulse Resp BP Pulse Ox 98 F 81 16 156/87 97 05/30/22 04:42 05/30/22 04:42 05/30/22 04:42 05/30/22 04:42 05/30/22 04:42 General appearance: Present: no acute distress, well-nourished - EENT Eyes: Present: PERRL ENT: hearing intact, clear oral mucosa - Neck Neck: Present: supple, normal ROM - Respiratory Respiratory effort: normal Respiratory: bilateral: CTA - Cardiovascular Heart Sounds: Present: S1 & S2. Absent: rub, click - Extremities Extremities: pulses symmetrical, No edema Extremity abnormal: ulceration, black, other (several bilateral leg ulcer/chronic wound in different stages-- with venous stasis)) Peripheral Pulses: within normal limits - Abdominal General gastrointestinal: Present: soft, non-tender, non-distended, normal bowel sounds Male genitourinary: Present: normal - Integumentary Integumentary: Present: clear, warm, dry - Musculoskeletal Musculoskeletal: gait normal, strength equal bilaterally - Psychiatric Psychiatric: appropriate mood/affect, intact judgment & insight - Neurologic Neurologic: CNII-XII intact, moves all extremities Results - Labs CBC & Chem 7: 05/29/22 23:01 05/29/22 23:01 Labs: Laboratory Last Values WBC 8.3 K/mm3 (4.5-11.0) 05/29/22 23:01 RBC 4.84 M/mm3 (3.65-5.03) 05/29/22 23:01 Hgb 14.1 gm/dl (11.8-15.2) 05/29/22 23:01 Hct 44.1 % (35.5-45.6) 05/29/22 23:01 MCV 91 fl (84-94) 05/29/22 23:01 MCH 29 pg (28-32) 05/29/22 23:01 MCHC 32 % (32-34) 05/29/22 23:01 RDW 16.1 % (13.2-15.2) H 05/29/22 23:01 Plt Count 157 K/mm3 (140-440) 05/29/22 23:01 Lymph % (Auto) 5.4 % (13.4-35.0) L 05/29/22 23:01 [place] % (Auto) 12.1 % (0.0-7.3) H 05/29/22 23:01 Eos % (Auto) 0.0 % (0.0-4.3) 05/29/22 23:01 Baso % (Auto) 0.2 % (0.0-1.8) 05/29/22 23:01 Lymph # (Auto) 0.4 K/mm3 (1.2-5.4) L 05/29/22 23:01 [place] # (Auto) 1.0 K/mm3 (0.0-0.8) H 05/29/22 23:01 Eos # (Auto) 0.0 K/mm3 (0.0-0.4) 05/29/22 23:01 Baso # (Auto) 0.0 K/mm3 (0.0-0.1) 05/29/22 23:01 Seg Neutrophils % 82.3 % (40.0-70.0) H 05/29/22 23:01 Seg Neutrophils # 6.8 K/mm3 (1.8-7.7) 05/29/22 23:01 PT 37.5 Sec. (12.2-14.9) H 05/29/22 23:01 INR 3.24 (0.87-1.13) H 05/29/22 23:01 APTT 44.3 Sec. (24.2-36.6) H 05/29/22 23:01 Sodium 141 mmol/L (137-145) 05/29/22 23:01 Potassium 4.2 mmol/L (3.6-5.0) 05/29/22 23:01 Chloride 102.2 mmol/L (98-107) 05/29/22 23:01 Carbon Dioxide 24 mmol/L (22-30) 05/29/22 23:01 Anion Gap 19 mmol/L 05/29/22 23:01 BUN 19 mg/dL (9-20) 05/29/22 23:01 Creatinine 0.9 mg/dL (0.8-1.3) 05/29/22 23:01 Estimated GFR > 60 ml/min 09/06/22 23:01 BUN/Creatinine Ratio 21 % 05/29/22 23:01 Glucose 127 mg/dL (75-100) H 05/29/22 23:01 Lactic Acid 3.70 mmol/L (0.7-2.0) H* 05/29/22 23:01 Calcium 8.6 mg/dL (8.4-10.2) 05/29/22 23:01 Total Bilirubin 3.50 mg/dL (0.1-1.2) H 05/29/22 23:01 AST 67 units/L (5-40) H 05/29/22 23:01 ALT 40 units/L (7-56) 05/29/22 23:01 Alkaline Phosphatase 41 units/L (35-129) 05/29/22 23:01 Total Protein 6.3 g/dL (6.3-8.2) 05/29/22 23:01 Albumin 3.4 g/dL (3.9-5) L 05/29/22 23:01 Albumin/Globulin Ratio 1.2 % 05/29/22 23:01 Microbiology: Microbiology 05/30/22 00:04 Peripheral/Venous Blood Culture - Preliminary Culture in Progress 05/29/22 23:01 Peripheral/Venous Blood Culture - Preliminary Culture in Progress Assessment and Plan VTE prophylaxis?: Mechanical Plan of care discussed with patient/family: Yes - Patient Problems (1) Chronic ulcer of leg Current Visit: Yes Status: Acute Qualifiers: Laterality: unspecified laterality Non-pressure ulcer stage: unspecified non-pressure ulcer stage Qualified Code(s): L97.909 - Non-pressure chronic ulcer of unspecified part of unspecified lower leg with unspecified severity Plan to address problem: Admit the patient to the medical floor. Vancomycin 1 g IV every 12 hours. Zosyn 4.5 g IV every 8 hours. Wound care evaluation. Wound culture. Recheck CBC BMP in the morning (2) Cellulitis Current Visit: Yes Status: Acute Qualifiers: Site of cellulitis: unspecified site Qualified Code(s): L03.90 - Celluliti s, unspecified Plan to address problem: Vancomycin 1 g IV every 12 hours. Zosyn 4.5 g IV every 8 hours. Wound care evaluation. Wound culture. Recheck CBC BMP in the morning (3) Accelerated hypertension Current Visit: No Status: Acute Plan to address problem: Metoprolol XL 100 mg p.o. daily. Hydralazine 10 mg IV every 6 hours as needed. We will monitor the blood pressure closely (4) Hyperlipidemia Current Visit: No Status: Chronic Plan to address problem: Crestor 10 mg p.o. daily. We will recheck the lipid panel (5) Type II diabetes mellitus Current Visit: No Status: Chronic Plan to address problem: Accu-Chek before meals and at bedtime with Humalog moderate dose coverage. Diabetic education (6) DVT prophylaxis Current Visit: Yes Status: Acute Plan to address problem: SCD for DVT prophylaxis. Pepcid 20 mg p.o. twice daily for GI prophylaxis. Patient is a full code
[2022-05-30] MEDS ORDERED: DEXTROSE 50% IN WATER (25GM) 50 ML SYRINGE IV PRN (05:28)
[2022-05-30] MEDS ORDERED: VANCOMYCIN/NS 1 GM/250 ML 1 GM/250 ML BAG IV SCH (06:00)
[2022-05-30] MEDS ORDERED: VANCOMYCIN 2,000 MG in SODIUM CHLORIDE 0.9% 500 ML 500 ML IV SCH (06:00)
[2022-05-30] MEDS ORDERED: VANCOMYCIN PHARMACY TO DOSE IV SCH (06:00)
--- NOTE | 2022-05-30 07:06 | Vascular Lab Report ---
DUPLEX DOPPLER LOWER EXTREMITY VEINS, BILATERAL INDICATION / CLINICAL INFORMATION: chronic ulcer and with no pulse TECHNIQUE: Duplex doppler imaging with spectral analysis was performed through the veins of both lowe r extremities using venous compression and other maneuvers. COMPARISON: None available. FINDINGS: RIGHT COMMON FEMORAL VEIN: Negative. RIGHT FEMORAL VEIN: Negative. RIGHT POPLITEAL VEIN: Negative. RIGHT CALF VEINS: Negative. LEFT COMMON FEMORAL VEIN: Negative. LEFT FEMORAL VEIN: Negative. LEFT POPLITEAL VEIN: Negative. LEFT CALF VEINS: Negative. ADDITIONAL FINDINGS: Bilateral soft tissue edema is noted. IMPRESSION: No sonographic evidence for DVT in either lower extremity. Signer Name: Lemuel Menendez MD Signed: 05/30/2022 7:01 AM Workstation Name: [id number]
[2022-05-30] MEDS: METOPROLOL SUCCINATE XL 100 MG TAB PO SCH (09:02)
[2022-05-30] MEDS: GABAPENTIN 300 MG CAP PO SCH ×2 (09:02→22:14)
[2022-05-30] MEDS: TAMSULOSIN 0.4 MG CAP PO SCH (09:02)
[2022-05-30] MEDS: FAMOTIDINE 20 MG TAB PO SCH ×2 (09:02→22:15)
[2022-05-30] MEDS: INSULIN LISPRO 100 UNIT/ML SUB-Q SCH ×4 (09:02→22:16)
--- NOTE | 2022-05-30 09:25 | Progress Note ---
Assessment and Plan Assessment and plan: -- Chronic ulcer of leg Empiric antibiotics vancomycin and Zosyn Wound care evaluation. Wound culture. --Bilateral lower extremity cellulitis Vancomycin 1 g IV every 12 hours. Zosyn 4.5 g IV every 8 hours. Wound care evaluation. Wound culture. Recheck CBC BMP in the morning Elevate the limbs --Accelerated hypertension Metoprolol XL 100 mg p.o. daily. Hydralazine 10 mg IV every 6 hours as needed. We will monitor the blood pressure closely --PUI; high suspicion for COVID-19; Griffith PCR test is sent Contact and droplet isolation Oxygen titrate O2 sats to more than 90% - Hyperlipidemia Crestor 10 mg p.o. daily. We will recheck the lipid panel --Type II diabetes mellitus Accu-Chek before meals and at bedtime with Humalog moderate dose coverage. Diabetic education --Full CODE STATUS; --Ongoing tobacco use; Smoking cessation counseling done Strongly advised to quit tobacco use risks and sequelae of Long-term tobacco use were discussed with the patient Patient also encouraged to use nicotine patch for smoking cessation Patient verbalized understanding Behavioral modification/smoking cessation counseling; spent 15 minutes --DVT prophylaxis SCD for DVT prophylaxis. Pepcid 20 mg p.o. twice daily for GI prophylaxis. Advance care planning +35 minutes I discussed with patient his condition I discussed the tests and reports, discussed the diagnosis I discussed with the patient the prognosis I also discussed the treatment plan Patient had numerous questions Answered all of them Verbalized understanding Closely monitor the patient and adjust the management as needed Plan of care reviewed with the patient and his nurse Follow griffith PCR test, Follow clinically PT OT evaluation Discharge planning per case management History Interval history: I have seen and examined the patient at the bedside Patient's chart and medications reviewed Patient was admitted this morning with bilateral leg cellulitis patient had supratherapeutic INR at 3.2. Patient is high suspicion for PUI, Isolation contact and droplet Griffith PCR test is sent, Vital signs reviewed Hospitalist Physical - Constitutional Vitals: Temp Pulse Resp BP Pulse Ox 99.0 F 60 18 173/86 96 05/30/22 07:45 05/30/22 07:45 05/30/22 07:45 05/30/22 07:45 05/30/22 07:56 General appearance: Present: no acute distress, well-nourished, obese - EENT Eyes: Present: PERRL, EOM intact - Neck Neck: Present: supple, normal ROM - Respiratory Respiratory effort: normal Respiratory: bilateral: diminished, rhonchi, negative: rales, wheezing - Cardiovascular Rhythm: regular Heart Sounds: Present: S1 & S2 - Extremities Extremities: no ischemia, abnormal (Bilateral lower extremity cellulitis) - Abdominal General gastrointestinal: soft, non-tender, non-distended, normal bowel sounds - Integumentary Integumentary: Present: clear, warm - Psychiatric Psychiatric: appropriate mood/affect, cooperative - Neurologic Neurologic: moves all extremities Results - Labs CBC & Chem 7: 05/29/22 23:01 05/29/22 23:01 Labs: Laboratory Last Values WBC 8.3 K/mm3 (4.5-11.0) 05/29/22 23: RBC 4.84 M/mm3 (3.65-5.03) 05/29/22 23:01 Hgb 14.1 gm/dl (11.8-15.2) 05/29/22 23:01 Hct 44.1 % (35.5-45.6) 05/29/22 23:01 MCV 91 fl (84-94) 05/29/22 23:01 MCH 29 pg (28-32) 05/29/22 23:01 MCHC 32 % (32-34) 05/29/22 23:01 RDW 16.1 % (13.2-15.2) H 05/29/22 23:01 Plt Count 157 K/mm3 (140-440) 05/29/22 23:01 Lymph % (Auto) 5.4 % (13.4-35.0) L 05/29/22 23:01 [place] % (Auto) 12.1 % (0.0-7.3) H 05/29/22 23:01 Eos % (Auto) 0.0 % (0.0-4.3) 05/29/22 23:01 Baso % (Auto) 0.2 % (0.0-1.8) 05/29/22 23:01 Lymph # (Auto) 0.4 K/mm3 (1.2-5.4) L 05/29/22 23:01 [place] # (Auto) 1.0 K/mm3 (0.0-0.8) H 05/29/22 23:01 Eos # (Auto) 0.0 K/mm3 (0.0-0.4) 05/29/22 23:01 Baso # (Auto) 0.0 K/mm3 (0.0-0.1) 05/29/22 23:01 Seg Neutrophils % 82.3 % (40.0-70.0) H 05/29/22 23:01 Seg Neutrophils # 6.8 K/mm3 (1.8-7.7) 05/29/22 23:01 PT 37.5 Sec. (12.2-14.9) H 05/29/22 23:01 INR 3.24 (0.87-1.13) H 05/29/22 23:01 APTT 44.3 Sec. (24.2-36.6) H 05/29/22 23:01 Sodium 141 mmol/L (137-145) 05/29/22 23:01 Potassium 4.2 mmol/L (3.6-5.0) 05/29/22 23:01 Chloride 102.2 mmol/L (98-107) 05/29/22 23:01 Carbon Dioxide 24 mmol/L (22-30) 05/29/22 23:01 Anion Gap 19 mmol/L 05/29/22 23:01 BUN 19 mg/dL (9-20) 05/29/22 23:01 Creatinine 0.9 mg/dL (0.8-1.3) 05/29/22 23:01 Estimated GFR > 60 ml/min 05/29/22 23:01 BUN/Creatinine Ratio 21 % 05/29/22 23:01 Glucose 127 mg/dL (75-100) H 05/29/22 23:01 Lactic Acid 3.70 mmol/L (0.7-2.0) H* 05/29/22 23:01 Calcium 8.6 mg/dL (8.4-10.2) 05/29/22 23:01 Total Bilirubin 3.50 mg/dL (0.1-1.2) H 05/29/22 23:01 AST 67 units/L (5-40) H 05/29/22 23:01 ALT 40 units/L (7-56) 05/29/22 23:01 Alkaline Phosphatase 41 units/L (35-129) 05/29/22 23:01 Total Protein 6.3 g/dL (6.3-8.2) 05/29/22 23:01 Albumin 3.4 g/dL (3.9-5) L 05/29/22 23:01 Albumin/Globulin Ratio 1.2 % 05/29/22 23:01 Microbiology: Microbiology 05/30/22 00:04 Peripheral/Venous Blood Culture - Preliminary Culture in Progress 05/29/22 23:01 Peripheral/Venous Blood Culture - Preliminary Culture in Progress [place]/IV: Voiding Method Urinal Active Medications - Current Medications Current Medications: Generic Name Dose Route Start Last Admin Trade Name Freq PRN Reason Stop Dose Admin Acetaminophen 650 mg 05/30/22 04:12 Acetaminophen 325 Mg Tab PO Q4H PRN Pain MILD(1-3)/Fever >100.5/DUENAS Albuterol 2.5 mg 05/30/22 05:00 Albuterol 2.5 Mg/3 Ml Nebu IH Q4HRT PRN Shortness Of Breath Albuterol/Ipratropium 1 ampul 05/30/22 08:00 Ipratropium/Albuterol Sulfate 3 Ml Ampul.Neb IH Q6HRT LADY Atorvastatin Calcium 20 mg 05/30/22 22:00 Atorvastatin 20 Mg Tab PO QHS LADY Dextrose 0 ml 05/30/22 05:28 Dextrose 50% In Water (25gm) 50 Ml Syringe IV Q30MIN PRN Hypoglycemia Protocol Famotidine 20 mg 05/30/22 10:00 05/30/22 09:02 Famotidine 20 Mg Tab PO 20 mg BID LADY Administration Gabapentin 300 mg 05/30/22 10:00 05/30/22 09:02 Gabapentin 300 Mg Cap PO 300 mg BID LADY Administration Piperacillin Sod/Tazobactam Sod 4.5 gm in 100 mls @ 200 mls/hr 05/30/22 10:00 05/30/22 09:01 Zosyn/Ns 4.5gm/100ml IV 05/30/22 10:29 200 mls/hr ONCE ONE Administration Protocol Vancomycin HCl 2,000 mg/ 540 mls @ 250 mls/hr 05/30/22 06:00 05/30/22 06:31 Sodium Chloride IV 250 mls/hr Q12H LADY Administration Insulin Human Lispro 0 unit 05/30/22 07:30 05/30/22 09:02 Insulin Lispro 100 Unit/Ml SUB-Q Not Given A[facility]S [facility] Protocol Metoprolol Succinate 100 mg 05/30/22 08:00 05/30/22 09:02 Metoprolol Succinate Xl 100 Mg Tab PO 100 mg QDAY@0800 LADY Administration Morphine Sulfate 2 mg 05/30/22 04:12 Morphine 2 Mg/1 Ml Inj IV Q4H PRN Pain, Moderate (4-6) Morphine Sulfate 4 mg 05/30/22 05:00 Morphine 4 Mg/1 Ml Inj IV Q4H PRN Pain , Severe (7-10) Ondansetron HCl 4 mg 05/30/22 04:12 Ondansetron 4 Mg/2 Ml Inj IV Q8H PRN Nausea And Vomiting Sodium Chloride 10 ml 05/30/22 10:00 05/30/22 09:01 Sodium Chloride 0.9% 10 Ml Flush Syringe IV 10 ml BID LADY Administration Sodium Chloride 10 ml 05/30/22 04:12 Sodium Chloride 0.9% 10 Ml Flush Syringe IV PRN PRN LINE FLUSH Tamsulosin HCl 0.4 mg 05/30/22 10:00 05/30/22 09:02 Tamsulosin 0.4 Mg Cap PO 0.4 mg DAILY LADY Administration
[2022-05-30] MEDS: IPRATROPIUM/ALBUTEROL SULFATE 3 ML AMPUL.NEB IH SCH ×2 (09:31→14:47)
[2022-05-30] MEDS ORDERED: PIPERACIL/TAZOBACTA 4.5/NS 100 4.5 GM/100 ML VIAL IV ONE (10:00)
[2022-05-30 11:51] LABS: INR 4.3 (0.87-1.13); Partial Thromboplastin Time 48.4 Sec. (24.2-36.6)
[2022-05-30] MEDS ORDERED: hydrALAZINE 20 MG/1 ML INJ IV NR (12:09)
[2022-05-30] MEDS ORDERED: hydrALAZINE 20 MG/1 ML INJ ONE (12:32)
[2022-05-30 12:35] LABS: Color,Urine Amber (Yellow)
[2022-05-30 13:15] LABS: Ictotest,Urine Positive (Negative)
[2022-05-30 13:33] LABS: Renal Epithelial Cells,Urine 2 /LPF
[2022-05-30 13:34] LABS: Bacteria,Urine 2+ /HPF (Negative); Hyaline Casts,Urine 1+ /LPF
[2022-05-30] MEDS: hydrALAZINE 25 MG TAB PO SCH ×2 (14:38→22:15)
[2022-05-30] MEDS: VANCOMYCIN 1,750 MG in SODIUM CHLORIDE 0.9% 500 ML 500 ML IV SCH (17:17)
--- NOTE | 2022-05-30 18:47 | Event Note ---
Date: 05/30/22 Patient's reagan PCR test is positive Patient placed on isolation, transfer to third floor[COVID-19 floor] Droplet and contact isolation Oxygen titrate O2 sats to more than 90% Inflammatory markers per protocol Home O2 evaluation for home oxygen Prone positioning as tolerated ID consult Prolonged care inpatient service 35 minutes
--- NOTE | 2022-05-30 23:00 | XRay Report ---
CHEST 1 VIEW INDICATION / CLINICAL INFORMATION: COVID-19, rule out pneumonia STUDY TIME: 2222 COMPARISON: 04/12/2020 FINDINGS: SUPPORT DEVICES: None HEART / MEDIASTINUM: Cardiomegaly is more prominent LUNGS / PLEURA: Mild congestion is seen but must less prominent than on study in March. No definite fo heidi areas of pneumonitis. Mild atelectasis is seen bilaterally. No definite pleural effusions. No pne umothorax. ADDITIONAL FINDINGS: No significant additional findings. Signer Name: Lemuel Menendez MD Signed: 05/30/2022 10:56 PM Workstation Name: [id number]
[2022-05-31] MEDS: VANCOMYCIN 1,750 MG in SODIUM CHLORIDE 0.9% 500 ML 500 ML IV SCH ×2 (06:07→17:29)
[2022-05-31] MEDS: hydrALAZINE 25 MG TAB PO SCH ×3 (06:07→22:10)
[2022-05-31 06:58] LABS: Basophils % (Auto) 0.6 % (0.0-1.8); Eosinophils % (Auto) 0.5 % (0.0-4.3); Lymphocytes # (Auto) 0.5 K/mm3 (1.2-5.4); Lymphocytes % (Auto) 7.7 % (13.4-35.0); Mean Corpuscular HGB Conc 30 % (32-34); Mean Corpuscular Volume 98 fl (84-94); Monocytes # (Auto) 0.6 K/mm3 (0.0-0.8); Monocytes % (Auto) 8.8 % (0.0-7.3); Platelet Count 131 K/mm3 (140-440); Red Blood Count 4.73 M/mm3 (3.65-5.03); Red Cell Distribution Width 17.9 % (13.2-15.2)
[2022-05-31 06:59] LABS: Hematocrit 46.4 % (35.5-45.6)
[2022-05-31 07:13] LABS: Alanine Aminotransferase 43 units/L (7-56); Albumin 3.1 g/dL (3.9-5); BUN/Creatinine Ratio 30; Blood Urea Nitrogen 24 mg/dL (9-20); Calcium 8.5 mg/dL (8.4-10.2); Hemolysis Index 37
--- NOTE | 2022-05-31 09:35 | Progress Note ---
Assessment and Plan Assessment and plan: --COVID-19 infection; Contact and droplet isolation Oxygen evaluation/saturating well on room air Prone positioning, inflammatory markers No hypoxia, no steroid and remdesivir Home O2 evaluation prior to discharge ID consult if needed --Chronic ulcer of leg Empiric antibiotics vancomycin and Zosyn Wound care evaluation. Wound culture. --Bilateral lower extremity cellulitis Vancomycin 1 g IV every 12 hours. Antibiotic changed to cefepime 2 g every 12 hours Wound care evaluation. Wound culture. Elevate the limbs --Accelerated hypertension Today well controlled, closely monitor Continue current antihypertensives and as needed medications --COVID-19 infection 05/30/2022 Contact and droplet isolation Oxygen titrate O2 sats to more than 90% Patient is currently on room air saturating well no hypoxia - Hyperlipidemia Crestor 10 mg p.o. daily. Low-cholesterol diet --Type II diabetes mellitus Accu-Chek before meals and at bedtime with Humalog moderate dose coverage. Diabetic education, diabetic diet education prior to discharge Check A1c --Full CODE STATUS +15 minutes; --DVT prophylaxis SCD for DVT prophylaxis. Pepcid 20 mg p.o. twice daily for GI prophylaxis. -- Obesity; BMI 32.1; Lifestyle changes Behavioral modification/weight reduction When you are medically stable --Ongoing tobacco use; Smoking cessation counseling done Strongly advised to quit tobacco use risks and sequelae of Long-term tobacco use were discussed with the patient Patient also encouraged to use nicotine patch for smoking cessation Patient verbalized understanding Behavioral modification/smoking cessation scounseling; spent 15 minutes Advance care planning +35 minutes I discussed with patient his condition I discussed the tests and reports, discussed the diagnosis I discussed with the patient the prognosis I also discussed the treatment plan Patient had numerous questions Answered all of them Verbalized understanding Closely monitor the patient and adjust the management as needed Plan of care reviewed with the patient and his nurse 05/31/2022; patient is receiving Vanco and cefepime On isolation precautions, room air oxygen O2 sats more than 94% History Interval history: I have seen and examined the patient at the bedside Patient's chart and medications reviewed No new events reported by nursing staff Vital signs noted Hospitalist Physical - Constitutional Vitals: Temp Pulse Resp BP Pulse Ox 99.4 F 67 18 153/95 97 05/31/22 04:41 05/31/22 04:41 05/31/22 04:41 05/31/22 04:41 05/31/22 04:41 General appearance: Present: no acute distress, well-nourished, obese - EENT Eyes: Present: PERRL, EOM intact - Neck Neck: Present: supple, normal ROM - Respiratory Respiratory effort: normal Respiratory: bilateral: diminished, negative: rales, rhonchi, wheezing - Cardiovascular Rhythm: regular Heart Sounds: Present: S1 & S2 - Extremities Extremities: No edema, abnormal (Cellulitis bilateral lower extremity) - Abdominal General gastrointestinal: soft, non-tender, non-distended, normal bowel sounds - Integumentary Integumentary: Present: clear, warm - Psychiatric Psychiatric: appropriate mood/affect, cooperative - Neurologic Neurologic: no focal deficits, moves all extremities Results - Labs CBC & Chem 7: 05/31/22 06:49 05/31/22 06:49 Labs: Laboratory Last Values WBC 6.9 K/mm3 (4.5-11.0) 05/31/22 06:49 RBC 4.73 M/mm3 (3.65-5.03) 05/31/22 06:49 Hgb 14.0 gm/dl (11.8-15.2) 05/31/22 06:49 Hct 46.4 % (35.5-45.6) H 05/31/22 06:49 MCV 98 fl (84-94) H 05/31/22 06:49 MCH 30 pg (28-32) 05/31/22 06:49 MCHC 30 % (32-34) L 05/31/22 06:49 RDW 17.9 % (13.2-15.2) H 05/31/22 06:49 Plt Count 131 K/mm3 (140-440) L 05/31/22 06:49 Lymph % (Auto) 7.7 % (13.4-35.0) L 05/31/22 06:49 [place] % (Auto) 8.8 % (0.0-7.3) H 05/31/22 06:49 Eos % (Auto) 0.5 % (0.0-4.3) 05/31/22 06:49 Baso % (Auto) 0.6 % (0.0-1.8) 05/31/22 06:49 Lymph # (Auto) 0.5 K/mm3 (1.2-5.4) L 05/31/22 06:49 [place] # (Auto) 0.6 K/mm3 (0.0-0.8) 05/31/22 06:49 Eos # (Auto) 0.0 K/mm3 (0.0-0.4) 05/31/22 06:49 Baso # (Auto) 0.0 K/mm3 (0.0-0.1) 05/31/22 06:49 Seg Neutrophils % 82.4 % (40.0-70.0) H 05/31/22 06:49 Seg Neutrophils # 5.7 K/mm3 (1.8-7.7) 05/31/22 06:49 PT 47.3 Sec. (12.2-14.9) H 05/30/22 10:47 INR 4.30 (0.87-1.13) H 05/30/22 10:47 APTT 48.4 Sec. (24.2-36.6) H 05/30/22 10:47 D-Dimer < 135 ng/mlDDU (0-234) 05/31/22 06:49 Sodium 138 mmol/L (137-145) 05/31/22 06:49 Potassium 4.1 mmol/L (3.6-5.0) 05/31/22 06:49 Chloride 104.3 mmol/L (98-107) 05/31/22 06:49 Carbon Dioxide 27 mmol/L (22-30) 05/31/22 06:49 Anion Gap 11 mmol/L 05/31/22 06:49 BUN 24 mg/dL (9-20) H 05/31/22 06:49 Creatinine 0.8 mg/dL (0.8-1.3) 05/31/22 06:49 Estimated GFR > 60 ml/min 05/31/22 06:49 BUN/Creatinine Ratio 30 % 05/31/22 06:49 Glucose 93 mg/dL (75-100) 05/31/22 06:49 POC Glucose 110 mg/dL (70-105) H 05/30/22 21:36 Lactic Acid 3.70 mmol/L (0.7-2.0) H* 05/29/22 23:01 Calcium 8.5 mg/dL (8.4-10.2) 05/31/22 06:49 Magnesium 1.90 mg/dL (1.7-2.3) 05/31/22 06:49 Ferritin 92.7 ng/mL (30.0-300.0) 05/31/22 06:49 Total Bilirubin 2.60 mg/dL (0.1-1.2) H 05/31/22 06:49 AST 54 units/L (5-40) H 05/31/22 06:49 ALT 43 units/L (7-56) 05/31/22 06:49 Alkaline Phosphatase 33 units/L (35-129) L 05/31/22 06:49 Lactate Dehydrogenase 300 units/L (91-180) H 05/31/22 06:49 C-Reactive Protein 2.90 mg/dL (0.00-1.30) H 05/31/22 06:49 Total Protein 5.8 g/dL (6.3-8.2) L 05/31/22 06:49 Albumin 3.1 g/dL (3.9-5) L 05/31/22 06:49 Albumin/Globulin Ratio 1.1 % 05/31/22 06:49 Urine Color Christy (Yellow) 05/29/22 Unknown Urine Turbidity Clear (Clear) 05/29/22 Unknown Specific [place] (Man) 1.030 (1.003-1.030) 05/29/22 Unknown Ur Protein (Man) 3+ mg/dL (Negative) 05/29/22 Unknown Ur Ketones (Man) Negative (Negative) 05/29/22 Unknown Ur Nitrite (Man) Negative (Negative) 05/29/22 Unknown Urine Bilirubin (Man) Moderate (Negative) 05/29/22 Unknown Urine Ictotest Positive (Negative) 05/29/22 Unknown Leukocyte Esterase (Man) Negative (Negative) 05/29/22 Unknown Urine WBC (Auto) 25.0 /HPF (0.0-6.0) H 05/29/22 Unknown Urine RBC (Auto) 5.0 /HPF (0.0-6.0) 05/29/22 Unknown U Epithel Cells (Auto) 3.0 /HPF (0-13.0) 05/29/22 Unknown Urine Bacteria (Auto) 2+ /HPF (Negative) 05/29/22 Unknown Urine RBC (Manual) 3+ (Negative) 05/29/22 Unknown Urine WBC Clumps Many /HPF 05/29/22 Unknown Ur Renal Epithelial Cell 2 /LPF 05/29/22 Unknown Uric Acid Crystals 2+ 05/29/22 Unknown Hyaline Casts 1+ /LPF 05/29/22 Unknown SARS-CoV-2 (PCR) Positive (Negative) A 05/30/22 12:41 Microbiology: Microbiology 05/30/22 00:04 Peripheral/Venous Blood Culture - Preliminary NO GROWTH AFTER 24 HOURS 05/29/22 23:01 Peripheral/Venous Blood Culture - Preliminary NO GROWTH AFTER 24 HOURS Mendoza/IV: Voiding Method Condom Catheter Active Medications - Current Medications Current Medications: Generic Name Dose Route Start Last Admin Trade Name Freq PRN Reason Stop Dose Admin Acetaminophen 650 mg 05/30/22 04:12 Acetaminophen 325 Mg Tab PO Q4H PRN Pain MILD(1-3)/Fever >100.5/DUENAS Albuterol 2.5 mg 05/30/22 05:00 Albuterol 2.5 Mg/3 Ml Nebu IH Q4HRT PRN Shortness Of Breath Atorvastatin Calcium 20 mg 05/30/22 22:00 05/30/22 22:15 Atorvastatin 20 Mg Tab PO 20 mg QHS LADY Administration Dextrose 0 ml 05/30/22 05:28 Dextrose 50% In Water (25gm) 50 Ml Syringe IV Q30MIN PRN Hypoglycemia Protocol Famotidine 20 mg 05/30/22 10:00 05/30/22 22:15 Famotidine 20 Mg Tab PO 20 mg BID LADY Administration Gabapentin 300 mg 05/30/22 10:00 05/30/22 22:14 Gabapentin 300 Mg Cap PO 300 mg BID LADY Administration Hydralazine HCl 25 mg 05/30/22 14:00 05/31/22 06:07 Hydralazine 25 Mg Tab PO 25 mg Q8HR LADY Administration Vancomycin HCl 1,750 mg/ 535 mls @ 333.333 mls/hr 05/30/22 18:00 05/31/22 06:07 Sodium Chloride IV 333.333 mls/hr Q12H LADY Administration Insulin Human Lispro 0 unit 05/30/22 07:30 05/30/22 22:16 Insulin Lispro 100 Unit/Ml SUB-Q Not Given ACHS LADY Protocol Metoprolol Succinate 100 mg 05/30/22 08:00 05/30/22 09:02 Metoprolol Succinate Xl 100 Mg Tab PO 100 mg QDAY@0800 LADY Administration Morphine Sulfate 2 mg 05/30/22 04:12 Morphine 2 Mg/1 Ml Inj IV Q4H PRN Pain, Moderate (4-6) Morphine Sulfate 4 mg 05/30/22 05:00 Morphine 4 Mg/1 Ml Inj IV Q4H PRN Pain , Severe (7-10) Ondansetron HCl 4 mg 05/30/22 04:12 Ondansetron 4 Mg/2 Ml Inj IV Q8H PRN Nausea And Vomiting Sodium Chloride 10 ml 05/30/22 10:00 05/30/22 22:15 Sodium Chloride 0.9% 10 Ml Flush Syringe IV 10 ml BID LADY Administration Sodium Chloride 10 ml 05/30/22 04:12 Sodium Chloride 0.9% 10 Ml Flush Syringe IV PRN PRN LINE FLUSH Tamsulosin HCl 0.4 mg 05/30/22 10:00 05/30/22 09:02 Tamsulosin 0.4 Mg Cap PO 0.4 mg DAILY LADY Administration Nutrition/Malnutrition Assess - Dietary Evaluation Nutrition/Malnutrition Findings: Nutrition Notes Start: 05/30/22 12:00 Freq: Status: Active Protocol: Document 05/30/22 12:00 TW (Rec: 05/30/22 12:09 TW [id number]) Nutrition Notes Need for Assessment generated from: MD Order,rotoprinter,Education Initial or Follow up Brief Note Current Diagnosis Diabetes,Hypertension, Hyperlipidemia Other Pertinent Diagnosis cellulitis, leg ulcer, arthritis, neuropathy vascular disease Current Diet cardiac/ consistent CHO Labs/Tests lactic acid 3.70 POC glucose 117 Pertinent Medications Reviewed Height 6 ft Weight 107.2 kg [place] Body Weight (kg) 80.90 BMI 32.0 Weight Status Obese Subjective/Other Information RD consulted for diet education. Pt screened for skin risk assessment. Pt has cellulitis and leg ulcer requiring treatment. Pt has hx of DM and HTN, not a candidate for diet education at this time. Will monitor PO intake. Burn Absent Trauma Absent Minimum of two criteria No Nutrition Intervention Follow-Up By: 06/04/22 Additional Comments F/U for intakes
[2022-05-31] MEDS ORDERED: CEFEPIME/NS 2 GM/100 ML 2 GM/100 ML BAG IV SCH (13:00)
[2022-05-31] MEDS: INSULIN LISPRO 100 UNIT/ML SUB-Q SCH ×2 (13:43→19:31)
[2022-05-31] MEDS: TAMSULOSIN 0.4 MG CAP PO SCH (14:19)
[2022-05-31] MEDS: GABAPENTIN 300 MG CAP PO SCH ×2 (14:19→22:10)
[2022-05-31] MEDS: METOPROLOL SUCCINATE XL 100 MG TAB PO SCH (14:20)
[2022-05-31] MEDS: CEFEPIME/NS 2 GM/100 ML 2 GM/100 ML BAG IV SCH (14:20)
[2022-05-31] MEDS: FAMOTIDINE 20 MG TAB PO SCH ×2 (14:20→22:10)
[2022-05-31 23:21] LABS: INR 2.61 (0.87-1.13)
[2022-05-31 23:22] LABS: Partial Thromboplastin Time 45.6 Sec. (24.2-36.6)
[2022-06-01] MEDS: CEFEPIME/NS 2 GM/100 ML 2 GM/100 ML BAG IV SCH ×4 (01:11→23:35)
[2022-06-01] MEDS: INSULIN LISPRO 100 UNIT/ML SUB-Q SCH ×5 (02:17→22:29)
[2022-06-01] MEDS ORDERED: ZIPRASIDONE MESYLATE 20 MG VIAL IM ONE ×2 (04:19→21:30)
[2022-06-01] MEDS ORDERED: WATER FOR INJ Sterile (PF) 10 ML IV ONE (04:31)
[2022-06-01] MEDS: VANCOMYCIN 1,750 MG in SODIUM CHLORIDE 0.9% 500 ML 500 ML IV SCH ×2 (05:37→19:58)
[2022-06-01] MEDS: hydrALAZINE 25 MG TAB PO SCH ×3 (07:39→22:26)
--- NOTE | 2022-06-01 08:03 | Progress Note ---
Assessment and Plan Assessment and plan: --COVID-19 infection; Contact and droplet isolation Oxygen evaluation/saturating well on room air Prone positioning, inflammatory markers No hypoxia, no steroid and remdesivir Home O2 evaluation prior to discharge ID consult . --Hypoxia; Requiring 3 L of nasal cannula oxygen since last night Add dexamethasone 6 mg IV daily for 10 doses Add remdesivir per protocol Home O2 evaluation prior to discharge Prone positioning as tolerated Chest x-ray; no evidence of pneumonitis or pneumonia --Chronic ulcer of leg Empiric antibiotics vancomycin and Zosyn Wound care evaluation. Wound culture. --Bilateral lower extremity cellulitis Vancomycin 1 g IV every 12 hours. Antibiotic changed to cefepime 2 g every 12 hours Wound care evaluation. Wound culture. Elevate the limbs --Accelerated hypertension Today well controlled, closely monitor Continue current antihypertensives and as needed medications - Hyperlipidemia Crestor 10 mg p.o. daily. Low-cholesterol diet --Type II diabetes mellitus Accu-Chek before meals and at bedtime with Humalog moderate dose coverage. Diabetic education, diabetic diet education prior to discharge Check A1c --Full CODE STATUS +15 minutes; --DVT prophylaxis SCD for DVT prophylaxis. Pepcid 20 mg p.o. twice daily for GI prophylaxis. -- Obesity; BMI 32.1; Lifestyle changes Behavioral modification/weight reduction When you are medically stable --Ongoing tobacco use; Smoking cessation counseling done Strongly advised to quit tobacco use risks and sequelae of Long-term tobacco use were discussed with the patient Patient also encouraged to use nicotine patch for smoking cessation Patient verbalized understanding Behavioral modification/smoking cessation scounseling; spent 15 minutes Advance care planning +35 minutes I discussed with patient his condition I discussed the tests and reports, discussed the diagnosis I discussed with the patient the prognosis I also discussed the treatment plan Patient had numerous questions Answered all of them Verbalized understanding Closely monitor the patient and adjust the management as needed Plan of care reviewed with the patient and his nurse 05/31/2022; patient is receiving Vanco and cefepime COVID-19 ,on isolation precautions, room air oxygen O2 sats more than 94% 06/01/22; patient is hypoxic requiring 3 L of nasal cannula oxygen, started steroids Remdesivir, prone positioning if tolerated, ID consulted History Interval history: I have seen and examined the patient at the bedside Patient's chart and medications reviewed Patient is hypoxic requiring 3 L of nasal cannula oxygen Patient is slightly anxious Vital signs reviewed Hospitalist Physical - Constitutional Vitals: Temp Pulse Resp BP Pulse Ox 98.5 F 65 20 167/71 96 06/01/22 05:45 06/01/22 05:45 06/01/22 05:45 06/01/22 05:45 06/01/22 05:45 General appearance: Present: mild distress, well-nourished, obese - EENT Eyes: Present: PERRL, EOM intact - Neck Neck: Present: supple, normal ROM - Respiratory Respiratory effort: normal Respiratory: bilateral: diminished, negative: rales, rhonchi, wheezing - Cardiovascular Rhythm: regular Heart Sounds: Present: S1 & S2 - Extremities Extremities: no ischemia, abnormal (Bilateral lower extremity cellulitis) - Abdominal General gastrointestinal: soft, non-tender, non-distended, normal bowel sounds - Integumentary Integumentary: Present: clear, warm - Psychiatric Psychiatric: appropriate mood/affect, cooperative - Neurologic Neurologic: moves all extremities Results - Labs CBC & Chem 7: 05/31/22 06:49 05/31/22 06:49 Labs: Laboratory Last Values WBC 6.9 K/mm3 (4.5-11.0) 05/31/22 06:49 RBC 4.73 M/mm3 (3.65-5.03) 05/31/22 06:49 Hgb 14.0 gm/dl (11.8-15.2) 05/31/22 06:49 Hct 46.4 % (35.5-45.6) H 05/31/22 06:49 MCV 98 fl (84-94) H 05/31/22 06:49 MCH 30 pg (28-32) 05/31/22 06:49 MCHC 30 % (32-34) L 05/31/22 06:49 RDW 17.9 % (13.2-15.2) H 05/31/22 06:49 Plt Count 131 K/mm3 (140-440) L 05/31/22 06:49 Lymph % (Auto) 7.7 % (13.4-35.0) L 05/31/22 06:49 [place] % (Auto) 8.8 % (0.0-7.3) H 05/31/22 06:49 Eos % (Auto) 0.5 % (0.0-4.3) 05/31/22 06:49 Baso % (Auto) 0.6 % (0.0-1.8) 05/31/22 06:49 Lymph # (Auto) 0.5 K/mm3 (1.2-5.4) L 05/31/22 06:49 [place] # (Auto) 0.6 K/mm3 (0.0-0.8) 05/31/22 06:49 Eos # (Auto) 0.0 K/mm3 (0.0-0.4) 05/31/22 06:49 Baso # (Auto) 0.0 K/mm3 (0.0-0.1) 05/31/22 06:49 Seg Neutrophils % 82.4 % (40.0-70.0) H 05/31/22 06:49 Seg Neutrophils # 5.7 K/mm3 (1.8-7.7) 05/31/22 06:49 PT 31.4 Sec. (12.2-14.9) H 05/31/22 22:28 INR 2.61 (0.87-1.13) H 05/31/22 22:28 APTT 45.6 Sec. (24.2-36.6) H 05/31/22 22:28 D-Dimer < 135 ng/mlDDU (0-234) 05/31/22 06:49 Sodium 138 mmol/L (137-145) 05/31/22 06:49 Potassium 4.1 mmol/L (3.6-5.0) 05/31/22 06:49 Chloride 104.3 mmol/L (98-107) 05/31/22 06:49 Carbon Dioxide 27 mmol/L (22-30) 05/31/22 06:49 Anion Gap 11 mmol/L 05/31/22 06:49 BUN 24 mg/dL (9-20) H 05/31/22 06:49 Creatinine 0.8 mg/dL (0.8-1.3) 05/31/22 06:49 Estimated GFR > 60 ml/min 05/31/22 06:49 BUN/Creatinine Ratio 30 % 05/31/22 06:49 Glucose 93 mg/dL (75-100) 05/31/22 06:49 POC Glucose 125 mg/dL (70-105) H 05/31/22 21:01 Lactic Acid 3.70 mmol/L (0.7-2.0) H* 05/29/22 23:01 Calcium 8.5 mg/dL (8.4-10.2) 05/31/22 06:49 Magnesium 1.90 mg/dL (1.7-2.3) 05/31/22 06:49 Ferritin 92.7 ng/mL (30.0-300.0) 05/31/22 06:49 Total Bilirubin 2.60 mg/dL (0.1-1.2) H 05/31/22 06:49 AST 54 units/L (5-40) H 05/31/22 06:49 ALT 43 units/L (7-56) 05/31/22 06:49 Alkaline Phosphatase 33 units/L (35-129) L 05/31/22 06:49 Lactate Dehydrogenase 300 units/L (91-180) H 05/31/22 06:49 C-Reactive Protein 2.90 mg/dL (0.00-1.30) H 05/31/22 06:49 Total Protein 5.8 g/dL (6.3-8.2) L 05/31/22 06:49 Albumin 3.1 g/dL (3.9-5) L 05/31/22 06:49 Albumin/Globulin Ratio 1.1 % 05/31/22 06:49 Urine Color Christy (Yellow) 05/29/22 Unknown Urine Turbidity Clear (Clear) 05/29/22 Unknown Specific [place] (Man) 1.030 (1.003-1.030) 05/29/22 Unknown Ur Protein (Man) 3+ mg/dL (Negative) 05/29/22 Unknown Ur Ketones (Man) Negative (Negative) 05/29/22 Unknown Ur Nitrite (Man) Negative (Negative) 05/29/22 Unknown Urine Bilirubin (Man) Moderate (Negative) 05/29/22 Unknown Urine Ictotest Positive (Negative) 05/29/22 Unknown Leukocyte Esterase (Man) Negative (Negative) 05/29/22 Unknown Urine WBC (Auto) 25.0 /HPF (0.0-6.0) H 05/29/22 Unknown Urine RBC (Auto) 5.0 /HPF (0.0-6.0) 05/29/22 Unknown U Epithel Cells (Auto) 3.0 /HPF (0-13.0) 05/29/22 Unknown Urine Bacteria (Auto) 2+ /HPF (Negative) 05/29/22 Unknown Urine RBC (Manual) 3+ (Negative) 05/29/22 Unknown Urine WBC Clumps Many /HPF 05/29/22 Unknown Ur Renal Epithelial Cell 2 /LPF 05/29/22 Unknown Uric Acid Crystals 2+ 05/29/22 Unknown Hyaline Casts 1+ /LPF 05/29/22 Unknown SARS-CoV-2 (PCR) Positive (Negative) A 05/30/22 12:41 Microbiology: Microbiology 05/30/22 00:04 Peripheral/Venous Blood Culture - Preliminary NO GROWTH AFTER 48 HOURS 05/29/22 23:01 Peripheral/Venous Blood Culture - Preliminary NO GROWTH AFTER 48 HOURS 05/29/22 Unknown Urine,Clean Catch Urine Culture - Preliminary NO GROWTH AFTER 24 HOURS Mendoza/IV: Voiding Method Condom Catheter Active Medications - Current Medications Current Medications: Generic Name Dose Route Start Last Admin Trade Name Freq PRN Reason Stop Dose Admin Acetaminophen 650 mg 05/30/22 04:12 Acetaminophen 325 Mg Tab PO Q4H PRN Pain MILD(1-3)/Fever >100.5/DUENAS Albuterol 2.5 mg 05/30/22 05:00 Albuterol 2.5 Mg/3 Ml Nebu IH Q4HRT PRN Shortness Of Breath Atorvastatin Calcium 20 mg 05/30/22 22:00 05/31/22 22:10 Atorvastatin 20 Mg Tab PO 20 mg QHS LADY Administration Dexamethasone 6 mg 06/01/22 10:00 Dexamethasone 4 Mg/Ml Vial IV 06/10/22 10:01 DAILY LADY Dextrose 0 ml 05/30/22 05:28 Dextrose 50% In Water (25gm) 50 Ml Syringe IV Q30MIN PRN Hypoglycemia Protocol Famotidine 20 mg 05/30/22 10:00 05/31/22 22:10 Famotidine 20 Mg Tab PO 20 mg BID LADY Administration Gabapentin 300 mg 05/30/22 10:00 05/31/22 22:10 Gabapentin 300 Mg Cap PO 300 mg BID LADY Administration Hydralazine HCl 25 mg 05/30/22 14:00 06/01/22 07:39 Hydralazine 25 Mg Tab PO Not Given Q8HR LADY Vancomycin HCl 1,750 mg/ 535 mls @ 333.333 mls/hr 05/30/22 18:00 06/01/22 05:37 Sodium Chloride IV 333.333 mls/hr Q12H LADY Administration Cefepime HCl 2 gm in 100 mls @ 200 mls/hr 05/31/22 14:00 06/01/22 07:41 Cefepime/Ns 2 Gm/100 Ml IV Not Given Q8H LADY Remdesivir 200 mg/ Sodium 250 mls @ 500 mls/hr 06/01/22 07:49 Chloride IV 06/01/22 08:18 ONCE ONE Remdesivir 100 mg/ Sodium 250 mls @ 500 mls/hr 06/02/22 14:00 Chloride IV 06/05/22 14:29 Q24HR@1400 [facility] Insulin Human Lispro 0 unit 05/30/22 07:30 06/01/22 02:17 Insulin Lispro 100 Unit/Ml SUB-Q Not Given ACHS [facility] Protocol Metoprolol Succinate 100 mg 05/30/22 08:00 05/31/22 14:20 Metoprolol Succinate Xl 100 Mg Tab PO 100 mg QDAY@0800 [facility] Administration Morphine Sulfate 2 mg 05/30/22 04:12 Morphine 2 Mg/1 Ml Inj IV Q4H PRN Pain, Moderate (4-6) Morphine Sulfate 4 mg 05/30/22 05:00 Morphine 4 Mg/1 Ml Inj IV Q4H PRN Pain , Severe (7-10) Ondansetron HCl 4 mg 05/30/22 04:12 Ondansetron 4 Mg/2 Ml Inj IV Q8H PRN Nausea And Vomiting Sodium Chloride 10 ml 05/30/22 10:00 05/31/22 22:10 Sodium Chloride 0.9% 10 Ml Flush Syringe IV 10 ml BID LADY Administration Sodium Chloride 10 ml 05/30/22 04:12 Sodium Chloride 0.9% 10 Ml Flush Syringe IV PRN PRN LINE FLUSH Sodium Chloride 50 ml 06/01/22 14:00 Sodium Chloride 0.9% 50 Ml Ivpb IV 06/05/22 14:01 Q24HR@1400 [facility] Tamsulosin HCl 0.4 mg 05/30/22 10:00 05/31/22 14:19 Tamsulosin 0.4 Mg Cap PO 0.4 mg DAILY LADY Administration Nutrition/Malnutrition Assess - Dietary Evaluation Nutrition/Malnutrition Findings: Nutrition Notes Start: 05/30/22 12:00 Freq: Status: Active Protocol: Document 05/30/22 12:00 TW (Rec: 05/30/22 12:09 TW [id number]) Nutrition Notes Need for Assessment generated from: MD Order,draw string knotter,Education Initial or Follow up Brief Note Current Diagnosis Diabetes,Hypertension, Hyperlipidemia Other Pertinent Diagnosis cellulitis, leg ulcer, arthritis, neuropathy vascular disease Current Diet cardiac/ consistent CHO Labs/Tests lactic acid 3.70 POC glucose 117 Pertinent Medications Reviewed Height 6 ft Weight 107.2 kg [place] Body Weight (kg) 80.90 BMI 32.0 Weight Status Obese Subjective/Other Information RD consulted for diet education. Pt screened for skin risk assessment. Pt has cellulitis and leg ulcer requiring treatment. Pt has hx of DM and HTN, not a candidate for diet education at this time. Will monitor PO intake. Burn Absent Trauma Absent Minimum of two criteria No Nutrition Intervention Follow-Up By: 06/04/22 Additional Comments F/U for intakes
[2022-06-01] MEDS ORDERED: dexAMETHasone 4 MG/ML VIAL IV SCH (10:00)
[2022-06-01] MEDS ORDERED: SODIUM CHLORIDE 0.9% 50 ML IVPB IV SCH (10:00)
[2022-06-01] MEDS ORDERED: REMDESIVIR 200 MG in SODIUM CHLORIDE 0.9% 250ML 250 ML IV ONE (10:00)
--- NOTE | 2022-06-01 11:22 | Consultation ---
History of Present Illness - Reason for Consult Consult date: 06/01/22 COVID-19, cellulitis Requesting physician: ACE LOMELI - History of Present Illness The patient is a 62-year-old male with diabetes, hypertension, peripheral vascular disease, came to the emergency room on 05/29/2022 with complaints of bilateral leg pain. No fever. Upon evaluation, tested positive for COVID-19, also hypoxic briefly with labored breathing on 05/30/2022 so was started on COVID- 19 treatment with Decadron and remdesivir. ID was consulted for bilateral lower extremity cellulitis. He has remained afebrile. Labs did not reveal any leukocytosis. Patient reports he is unvaccinated. Complaining of pain in bilateral lower extremities. He admits to smoking 1 and half packs of cigarettes per day. Review of Systems: General: no fevers,chills or rigors HEENT: no new visual disturbance Respiratory: No cough, sputum, hemoptysis or shortness of breath Cardiovascular: No chest pain, syncope Gastrointestinal: No nausea, vomiting or diarrhea Genitourinary: No dysuria or hematuria Musculoskeletal: Bilateral leg pain Neurologic: No headaches, seizures Hematologic: No easy bruising or bleeding Endocrine: No night sweats or acute weight loss Skin: negative for rash, jaundice Psychiatric: No suicidal or homicidal ideation Past History Past Medical History: arthritis, diabetes, hypertension, other (Neuropathy, Chronic Pain, bph, Vascular disease) Past Surgical History: Other (Right shoulder surgery) Social history: smoking Family history: hypertension Medications and Allergies Allergies Allergy/AdvReac Type Severity Reaction Status Date / Time No Known Allergies Allergy Verified 06/01/22 09:42 Home Medications Medication Instructions Recorded Confirmed Last Taken Type Metoprolol Succinate [Toprol Xl] 100 mg PO QDAY 09/30/18 06/01/22 04/11/20 History Spironolactone [Aldactone] 25 mg PO QDAY 06/01/22 06/01/22 Unknown History Warfarin [Coumadin] 7.5 mg PO QDAY 06/01/22 06/01/22 Unknown History glipiZIDE [Glucotrol] 10 mg PO BID 06/01/22 06/01/22 Unknown History Active Meds: Active Medications Acetaminophen (Acetaminophen 325 Mg Tab) 650 mg PO Q4H PRN PRN Reason: Pain MILD(1-3)/Fever >100.5/DUENAS Albuterol (Albuterol 2.5 Mg/3 Ml Nebu) 2.5 mg IH Q4HRT PRN PRN Reason: Shortness Of Breath Atorvastatin Calcium (Atorvastatin 20 Mg Tab) 20 mg PO QHS REPLACED BY [facility] Last Admin: 05/31/22 22:10 Dose: 20 mg Dexamethasone (Dexamethasone 4 Mg/Ml Vial) 6 mg IV DAILY REPLACED BY [facility] Stop: 06/10/22 10:01 Dextrose (Dextrose 50% In Water (25gm) 50 Ml Syringe) 0 ml IV Q30MIN PRN; Protocol PRN Reason: Hypoglycemia Famotidine (Famotidine 20 Mg Tab) 20 mg PO BID REPLACED BY [facility] Last Admin: 05/31/22 22:10 Dose: 20 mg Gabapentin (Gabapentin 300 Mg Cap) 300 mg PO BID REPLACED BY [facility] Last Admin: 05/31/22 22:10 Dose: 300 mg Hydralazine HCl (Hydralazine 25 Mg Tab) 25 mg PO Q8HR REPLACED BY [facility] Last Admin: 06/01/22 07:39 Dose: Not Given Vancomycin HCl 1,750 mg/ (Sodium Chloride) 535 mls @ 333.333 mls/hr IV Q12H REPLACED BY [facility] Last Admin: 06/01/22 05:37 Dose: 333.333 mls/hr Cefepime HCl (Cefepime/Ns 2 Gm/100 Ml) 2 gm in 100 mls @ 200 mls/hr IV Q8H REPLACED BY [facility] Last Admin: 06/01/22 07:41 Dose: Not Given Remdesivir 100 mg/ Sodium (Chloride) 250 mls @ 500 mls/hr IV Q24HR@1400 REPLACED BY [facility] Stop: 06/05/22 14:29 Insulin Human Lispro (Insulin Lispro 100 Unit/Ml) 0 unit SUB-Q ACHS REPLACED BY [facility]; Protocol Last Admin: 06/01/22 02:17 Dose: Not Given Metoprolol Succinate (Metoprolol Succinate Xl 100 Mg Tab) 100 mg PO QDAY@0800 REPLACED BY [facility] Last Admin: 05/31/22 14:20 Dose: 100 mg Morphine Sulfate (Morphine 2 Mg/1 Ml Inj) 2 mg IV Q4H PRN PRN Reason: Pain, Moderate (4-6) Morphine Sulfate (Morphine 4 Mg/1 Ml Inj) 4 mg IV Q4H PRN PRN Reason: Pain , Severe (7-10) Ondansetron HCl (Ondansetron 4 Mg/2 Ml Inj) 4 mg IV Q8H PRN PRN Reason: Nausea And Vomiting Sodium Chloride (Sodium Chloride 0.9% 10 Ml Flush Syringe) 10 ml IV BID REPLACED BY [facility] Last Admin: 05/31/22 22:10 Dose: 10 ml Sodium Chloride (Sodium Chloride 0.9% 10 Ml Flush Syringe) 10 ml IV PRN PRN PRN Reason: LINE FLUSH Sodium Chloride (Sodium Chloride 0.9% 50 Ml Ivpb) 50 ml IV Q24HR@1400 REPLACED BY [facility] Stop: 06/05/22 14:01 Tamsulosin HCl (Tamsulosin 0.4 Mg Cap) 0.4 mg PO DAILY REPLACED BY [facility] Last Admin: 05/31/22 14:19 Dose: 0.4 mg Physical Examination - Physical Exam Narrative exam: Physical Exam: Constitutional: Alert, cooperative. No acute distress Head, Ears, Nose: Normocephalic, atraumatic. External ears, nose normal Eyes: Conjunctivae/corneas clear. No icterus. No ptosis. Neck: Supple, no meningeal signs Cardiovascular: S1, S2 + Respiratory: AE fair bilaterally GI: Soft, non-tender; bowel sounds normal. No peritoneal signs Musculoskeletal: Bilateral lower extremities with some superficial ulcerations, cool to touch, mild edema + Skin: No rash or abscess Hem/Lymphatic: No palpable cervical or supraclavicular nodes. No lymphangitis Psych: Flat affect Neurological: Awake, alert, oriented. No gross abnormality - Constitutional Vitals: Vital Signs Temp Pulse Resp BP Pulse Ox 98.5 F 65 20 167/71 96 06/01/22 05:45 06/01/22 05:45 06/01/22 05:45 06/01/22 05:45 06/01/22 05:45 Temperature -Last 24 Hours Temperature 98.5 F Temperature 97.5 F Temperature 97.6 F Temperature 97.6 F Results - Labs CBC & Chem 7: 05/31/22 06:49 05/31/22 06:49 Labs: Abnormal lab results 05/31/22 05/31/22 05/31/22 Range/Units 11:33 17:56 21:01 PT (12.2-14.9) Sec. INR (0.87-1.13) APTT (24.2-36.6) Sec. POC Glucose 143 H 129 H 125 H (70-105) mg/dL 05/31/22 Range/Units 22:28 PT 31.4 H (12.2-14.9) Sec. INR 2.61 H (0.87-1.13) APTT 45.6 H (24.2-36.6) Sec. POC Glucose (70-105) mg/dL - Imaging and Cardiology Chest x-ray: report reviewed, image reviewed (no pneumonia) Assessment and Plan Cultures: SARS CoV2 PCR: Positive 05/29/2022 blood culture: No growth 05/29/2022 urine culture: No growth A/P: 62-year-old male with diabetes, hypertension, peripheral vascular disease, came to the emergency room on 05/29/2022 with complaints of bilateral leg pain: #Bilateral lower extremity leg pain with ulceration: There is no significant warmth, on the contrary, both his lower extremities are cool to touch, suspect underlying peripheral vascular disease. No fever or leukocytosis. DVT scan negative. #COVID-19 with brief hypoxia #Tobacco abuse #Diabetes mellitus type 2 Recs: -Continue IV/PO Dexamethasone x 10 days -Continue IV remdesivir x 5 days -Continue ceftriaxone, vancomycin for 5 days -Arterial studies ordered Janice Oviedo MD, FACP, [facility] ([facility] O: [phone] F: [phone] C: [phone]
[2022-06-01] MEDS: METOPROLOL SUCCINATE XL 100 MG TAB PO SCH (12:30)
[2022-06-01] MEDS: FAMOTIDINE 20 MG TAB PO SCH ×2 (12:51→22:28)
[2022-06-01] MEDS: GABAPENTIN 300 MG CAP PO SCH ×2 (12:51→22:28)
[2022-06-01] MEDS: TAMSULOSIN 0.4 MG CAP PO SCH (12:52)
[2022-06-01] MEDS ORDERED: NICOTINE 14 MG/24 HR PATCH TD SCH (14:00)
--- NOTE | 2022-06-01 16:29 | Vascular Lab Report ---
DUPLEX DOPPLER LOWER EXTREMITY ARTERIAL, BILATERAL INDICATION / CLINICAL INFORMATION: peripheral vascular disease, wounds. TECHNIQUE: Arterial duplex examination of both lower extremities performed using B-mode, color flow a nd spectral Doppler assessment. FINDINGS: RIGHT: Common Femoral Artery: PSV 50 cm/sec. Monophasic waveform. Proximal SFA: Absent color Doppler blood flow. Mid SFA: PSV 35 cm/sec. Monophasic waveform. Distal SFA: PSV 19 cm/sec. Monophasic waveform. Popliteal Artery: PSV 15 cm/sec. Monophasic waveform. Posterior Tibial Artery: PSV 9 cm/sec. Monophasic waveform. Dorsalis Pedis Artery: PSV 9 cm/sec. Monophasic waveform. LEFT: Common Femoral Artery: PSV 17 cm/sec. Monophasic waveform. Proximal SFA: PSV 49 cm/sec. Monophasic waveform. Mid SFA: PSV 39 cm/sec. Monophasic waveform. Distal SFA: PSV 29 cm/sec. Monophasic waveform. Popliteal Artery: PSV 24 cm/sec. Monophasic waveform. Posterior Tibial Artery: PSV 8 cm/sec. Monophasic waveform. Dorsalis Pedis Artery: PSV 13 cm/sec. Monophasic waveform. ADDITIONAL FINDINGS: None. RIGHT ALVIN: Not calculated. LEFT ALVIN: Not calculated. IMPRESSION: 1. Moderate to significant atherosclerotic plaque is noted throughout both lower extremities. 2. Findings suggestive of moderate to severe peripheral arterial disease including dampened velocitie s and monophasic waveforms throughout both lower extremities. The right proximal femoral artery is oc cluded. Ankle-Brachial Index (ALVIN): - Calcified arteries > 1.4 - Normal = 0.9-1.4 - Mild PAD = 0.7-0.89 - Moderate PAD = 0.51-0.69 - Severe PAD < 0.5 Doppler Waveform: - Triphasic is normal. - Biphasic is abnormal if clear transition from triphasic signal along vascular tree. - Monophasic is abnormal. Scribed by: Marilyn Adcox RDMS, RVT, RMSKS Scribed: 06/01/2022 2:41 PM I have reviewed the images, agree with this report, and edited this report as needed. Signer Name: Gregg Meehan MD Signed: 06/01/2022 4:25 PM Workstation Name: [id number]
[2022-06-01 16:42] LABS: Alanine Aminotransferase 45 units/L (7-56); Albumin 3.6 g/dL (3.9-5); BUN/Creatinine Ratio 28; Blood Urea Nitrogen 22 mg/dL (9-20); Calcium 8.4 mg/dL (8.4-10.2); Hemolysis Index 58
[2022-06-01] MEDS ORDERED: WARFARIN 5 MG TAB PO SCH (17:00)
--- NOTE | 2022-06-01 18:00 | Event Note ---
Date: 06/01/22 Patient is on Coumadin with supratherapeutic INR at the time of admission patient unable to give the indication for Coumadin I called patient's spouse she explained to me that patient has LV thrombus and he takes Coumadin with a therapeutic goal of INR between 2 and 3 Coumadin was held from admission due to supratherapeutic INR however, today re ached a goal between 2 and 3 Resume Coumadin at 5 mg nightly, pharmacy to dose and monitor INR. We will closely monitor and adjust the dosages as needed. Patient's spouse verbalized understanding and was appreciative of my call.
[2022-06-01] MEDS ORDERED: WARFARIN 7.5 MG TAB PO SCH (22:00)
[2022-06-02] MEDS: CEFEPIME/NS 2 GM/100 ML 2 GM/100 ML BAG IV SCH (05:14)
[2022-06-02] MEDS: VANCOMYCIN 1,750 MG in SODIUM CHLORIDE 0.9% 500 ML 500 ML IV SCH (05:53)
[2022-06-02] MEDS ORDERED: EPINEPHrine 1 MG/10 ML SYRINGE ONE (06:37)
[2022-06-02] MEDS ORDERED: SODIUM BICARB 8.4% 50 MEQ/50 ML SYRINGE IV ONE (06:37)
--- NOTE | 2022-06-02 07:00 | Death Note ---
Note Date of : 06/02/22 Time of : 06:51 Time Pronounced: 06:51 - Preliminary Cause of (problem) (1) Chronic ulcer of leg Qualifiers: Laterality: unspecified laterality Non-pressure ulcer stage: unspecified non-pressure ulcer stage Qualified Code(s): L97.909 - Non-pressure chronic ulcer of unspecified part of unspecified lower leg with unspecified severity Preliminary cause of CODE BLUE was called. Patient was found bradycardia to asystole. Patient has no pulse no BP. CPR was given as per ACLS protocol. 5 epinephrine, 2 bicarb and 1 calcium gluconate is given. Patient is given one-time shock of 200 J. Patient failed to regain ROSC. Patient at 6:51 AM on June 02, 2022 due to cardiopulmonary arrest. Cellulitis of the leg. Family is notified. (2) Cellulitis Qualifiers: Site of cellulitis: unspecified site Qualified Code(s): L03.90 - Cellulitis, unspecified Preliminary cause of (3) Accelerated hypertension Preliminary cause of (4) Hyperlipidemia Preliminary cause of (5) Type II diabetes mellitus Preliminary cause of (6) DVT prophylaxis Preliminary cause of
[2022-06-02 07:05] VITALS: BP 152/56
--- NOTE | 2022-06-02 07:20 | Death Summary ---
Summary - Providers Date of service: 06/02/22 Consults: 05/30/22 05:28 Consult to Dietitian/Nutrition [CONS] Routine Physician Instructions: Reason For Exam: Reason for Consult: Diet education 05/30/22 13:53 Consult to Wound/ET Nurse [CONS] Routine Reason For Exam: wound eval/ BLE cellulitis 05/31/22 17:18 Physical Therapy Evaluation and Treat [CONS] Routine Comment: Reason For Exam: General debility/COVID-19 06/01/22 08:09 Consult to Physician [CONS] Routine Comment: Consulting Provider: [facility] Physician Instructions: Reason For Exam: COVID 19/hypoxia/cellulitis Georges LE Attending: ACE LOMELI - summary Date of admission: 05/30/22 04:12 Date of : 06/02/22 (at 06:51) Reason for admission: Bilateral lower extremity cellulitis Significant findings: -62-year-old obese male patient with significant past medical history of hypertension, diabetes mellitus, arthritis, peripheral neuropathy, peripheral arterial disease, on chronic anticoagulation with Coumadin [as well as cardiac condition(possible LV thrombus per family)] was admitted through emergency room with bilateral lower extremity swelling/cellulitis/chronic ulcers. Patient was treated empirically with antibiotics, supportive care with elevation of limbs, blood cultures and wound cultures were sent and on 05/30/2022 patient was tested positive for COVID-19 infection, with severe hypoxia, requiring oxygen ,steroids and remdesivir, evaluated by ID and medications optimized per protocol, patient continued to deteriorate with worsening hypoxia requiring Ventimask with FiO2 of 50% and 15 L with minimal improvement , as per medical records ,patient remained hypoxemic saturating at 84% and on 06/02/22 service secretary hours patient went into cardiorespiratory arrest, CODE BLUE was called, and code team has managed with CPR per ACLS protocol, however patient could not be resuscitated and on-call service greeter pronounced patient on 06/02/2022 at 6:51 AM.The covering service greeter has informed the family and discussed the details. I was not present when patient had cardiorespiratory arrest and when patient . All the details were obtained from the patient's chart and medical records. Patient was pronounced by covering service greeter Dr. Cervantes. Date and time of : 06/02/2022 at 06:51 Cause of ;, Acute hypoxic respiratory failure Cardiopulmonary arrest Severe COVID-19 infection Severe peripheral arterial disease Bilateral lower extremity cellulitis/chronic ulcers Chronic anticoagulation with Coumadin Hypertension Dyslipidemia Type 2 diabetes melitis Ongoing tobacco use Obesity BMI 32.1. --Final diagnosis --Acute hypoxic respiratory failure /on oxygen Requiring 3 L of nasal cannula oxygen since last night Later requiring Ventimask and finally cardiac arrest requiring intubation Patient -- Cardio pulmonary arrest- s/p CPR per ACLS protocol, patient could not be revived ; --Severe COVID-19 infection; Contact and droplet isolation Hypoxia on oxygen nasal cannula later Ventimask IV steroids IV remdesivir poor prognosis ID evaluated --severe peripheral arterial disease: Continue current management and supportive care --Chronic ulcer bilateral lower extremity Empiric antibiotics vancomycin and Zosyn Wound care evaluation. Wound culture. --Bilateral lower extremity cellulitis Vancomycin 1 g IV every 12 hours. Antibiotic changed to cefepime 2 g every 12 hours Wound care evaluation. Wound culture. Elevate the limbs --chronic anticoagulation: On Coumadin On Coumadin, possible peripheral arterial disease, and/or cardiac disease ( reports LV thrombus ) --Accelerated hypertension Today well controlled, closely monitor Continue current antihypertensives and as needed medications - Dyslipidemia Crestor 10 mg p.o. daily. Low-cholesterol diet --Type II diabetes mellitus Accu-Chek before meals and at bedtime with Humalog moderate dose coverage. Diabetic education, diabetic diet education --Ongoing tobacco use; Smoking cessation counseling done Strongly advised to quit tobacco use risks and sequelae o -- Obesity; BMI 32.1; Lifestyle changes Behavioral modification/weight reduction When you are medically stable --DVT prophylaxis SCD, patient on Coumadin for DVT prophylaxis. Pepcid 20 mg p.o. twice daily for GI prophylaxis. Patient on 06/02/2022 at 06:51 Pronounced by covering service greeter . I was not present when patient . Details obtained from the patient's chart and medical records Spent total 40 minutes Procedures/treatments rendered: Intubation and ventilatory support CPR per ACLS protocol Pertinent studies: Lower extremity venous Doppler; no sonographic evidence of DVT Chest x-ray; m bilaterally, no definite pleural effusion no pneumothorax ild congestion, no definite focal areas of pneumonitis, mild atelectasis Lower extremity arterial Doppler; moderate to significant atherosclerotic plaque is noted throughout both lower extremities Findings suggestive of moderate to severe peripheral arterial disease Disposition: Patient
[2022-06-02] MEDS: hydrALAZINE 25 MG TAB PO SCH (08:50)
[2022-06-02] MEDS ORDERED: REMDESIVIR 100 MG in SODIUM CHLORIDE 0.9% 250ML 250 ML IV SCH (14:00)
== END 2022-06-02 08:00 | DRG 177 ==
LOC: ED 21:21 → 4A 05-30 04:12 → 3A 05-30 17:35
PROVIDERS: ADMIT Hospitalist; ATTEND Internal Medicine
PROC: XW033E5 Introduction of Remdesivir Anti-infective into Peripheral Vein, Percutaneous Approach, New Technology Group 5 (ICD-10-PCS; 2022-06-01)
PROC: 5A12012 Performance of Cardiac Output, Single, Manual (ICD-10-PCS; principal; 2022-06-02)
PROC: 0BH17EZ Insertion of Endotracheal Airway into Trachea, Via Natural or Artificial Opening (ICD-10-PCS; 2022-06-02)
DX: U07.1 COVID-19 (principal); I46.9 Cardiac arrest, cause unspecified; J96.21 Acute and chronic respiratory failure with hypoxia; L03.115 Cellulitis of right lower limb; L03.116 Cellulitis of left lower limb; L97.929 Non-pressure chronic ulcer of unspecified part of left lower leg with unspecified severity; L97.919 Non-pressure chronic ulcer of unspecified part of right lower leg with unspecified severity; E11.40 Type 2 diabetes mellitus with diabetic neuropathy, unspecified; M19.90 Unspecified osteoarthritis, unspecified site; N40.0 Benign prostatic hyperplasia without lower urinary tract symptoms; I50.9 Heart failure, unspecified; E78.5 Hyperlipidemia, unspecified; I11.0 Hypertensive heart disease with heart failure; Z71.6 Tobacco abuse counseling; F17.200 Nicotine dependence, unspecified, uncomplicated; E66.9 Obesity, unspecified; Z68.32 Body mass index [BMI] 32.0-32.9, adult; E11.51 Type 2 diabetes mellitus with diabetic peripheral angiopathy without gangrene; Z82.49 Family history of ischemic heart disease and other diseases of the circulatory system
CPT/HCPCS: 36415; 71045; 80048; 80053; 81001; 82140; 82728; 82962; 83615; 83735; 85025; 85379; 85610; 85730; 86140; 87040; 87086; 93925; 93970; 94640; 94760; 99406; G0378; Q9967; J0171; J0360; J0692; J1100; J1815; J2270; J2543; J3370; J3486; J7030; J7040; J7050; U0003